=== PATIENT | female | born 1985 | race Caucasian/White ===

== ENCOUNTER 2020-01-12 13:33 | Emergency (ER) | payer OTHER, SELFPAY ==
--- NOTE | 2020-01-12 13:41 | ED.EYEPROB ---
HPI - Eye Problem General Chief complaint: Eye Problems Stated complaint: Eye pain/swollen Time Seen by Provider: 01/12/20 13:45 Source: patient and RN notes reviewed History of Present Illness HPI Narrative: Patient is a 34-year-old female presents the urgent care with complaints of left eye irritation, redness, drainage. Patient states that it started last night and she has had some clear drainage this morning. Patient does not use anything [id number]. Denies any known trauma or injury to the eye. Denies any vision loss. No other acute complaints. No acute distress noted. Patient aware the plan of care. Related Data Home Medications Medication Instructions Recorded Confirmed diazepam [Valium] 10 mg PO BID PRN 01/12/20 01/12/20 fluoxetine 20 mg PO DAILY 01/12/20 01/12/20 trazodone 100 mg PO BID PRN 01/12/20 01/12/20 Allergies Allergy/AdvReac Type Severity Reaction Status Date / Time Sulfa (Sulfonamide Allergy Unknown Hives Verified 10/28/19 21:49 Antibiotics) hydrocodone AdvReac Unknown N/V/DIZZINE Verified 10/28/19 21:49 SS Review of Systems Review of Systems: Narrative: CONSTITUTIONAL: Denies fever, chills, or sweats. EYES: Reports of left eye redness, irritation, clear drainage ENT: Denies rhinorrhea, congestion, sore throat, or otalgia. CARDIOVASCULAR: Denies chest pain, palpitations, or edema. RESPIRATORY: Denies cough or dyspnea. GASTROINTESTINAL: Denies abdominal pain, nausea, vomiting, or diarrhea. GENITOURINARY: Denies dysuria or hematuria. SKIN: Denies rash or itching. MUSCULOSKELETAL: Denies back pain, joint pain, or myalgia. NEUROLOGIC: Denies headache, numbness, or weakness. All other systems reviewed are negative, except as documented in HPI. [facility] Past Medical History Medical History (Updated 01/12/20 @ 14:00 by LIZZETH Cummins) Anemia Anxiety Asthma Congenital heart disease Herpes Hypercholesteremia PCOS (polycystic ovarian syndrome) Surgical History Surgical History (Updated 10/28/19 @ 22:28 by Han Gibson) Hx of tubal ligation Social History Social History (Updated 10/28/19 @ 22:28 by Han Gibson) Smoking status: Never smoker Second hand tobacco smoke exposure: Yes Gender identity (if verbalized by the patient): Female Comments At the time of my signature, I reviewed and agree with the nursing past medical, surgical, social, and family history. There is no relevant family history pertinent to the patient complaint. Exam Narrative: Exam Narrative: GENERAL: This is a well-nourished, well-developed patient, in no apparent distress. HEAD: normocephalic, atraumatic. EYES: PERRL. Sclera clear/white. Mild injection to left conjunctivea with clear drainage. No obvious hordeolum. Vision is grossly intact. EARS: External ears normal NOSE: External nose normal with no obvious nasal discharge, nares without redness, no rhinorrhea. NECK: Neck supple CARDIOVASCULAR: Regular rate and rhythm without murmurs, gallops, or rubs. RESPIRATORY: Clear to auscultation. Breath sounds equal bilaterally. No wheezes, rales, or rhonchi. SKIN: warm, intact with no suspicious lesions or rash, good texture and turgor. NEURO: awake, alert, and oriented to person, place and time. There were no obvious focal neurologic abnormalities. EXTREMITIES: No clubbing, cyanosis, or edema. Course Vital Signs Vital signs: Vital Signs Temperature 97.4 F L 01/12/20 13:45 Pulse Rate 101 H 01/12/20 13:45 Respiratory Rate 16 01/12/20 13:45 Blood Pressure 122/69 01/12/20 13:45 Pulse Oximetry 100 01/12/20 13:45 Temperature 97.4 F L 01/12/20 13:45 Pulse Rate 101 H 01/12/20 13:45 Respiratory Rate 16 01/12/20 13:45 Blood Pressure 122/69 01/12/20 13:45 Pulse Oximetry 100 01/12/20 13:45 Reviewed MDM - Eye Problem MDM Narrative Medical decision making narrative: Advised the patient to use warm compress to the left eye and take Claritin for itching and water
[2020-01-12 13:45] VITALS: BP 122/69; PULSE 101; RESP 16; TEMP 36.3; O2SAT 100
== END 2020-01-12 14:06 | disposition home or self-care (01) ==
PROVIDERS: Emergency Provider Nurse Practitioner Family
DX: H57.89 Other specified disorders of eye and adnexa (principal); E78.00 Pure hypercholesterolemia, unspecified; E28.2 Polycystic ovarian syndrome; J45.909 Unspecified asthma, uncomplicated; Q24.9 Congenital malformation of heart, unspecified; F41.9 Anxiety disorder, unspecified
CPT/HCPCS: 99213; G0463

== ENCOUNTER 2020-06-13 19:17 | Emergency (ER) | payer OTHER, SELFPAY ==
--- NOTE | 2020-06-13 19:28 | ED.FEMALEGU ---
HPI - Female Genitourinary General Chief complaint: Urogenital-Female Stated complaint: Possible UTI Time Seen by Provider: 06/13/20 19:28 Source: patient Mode of arrival: ambulatory Limitations: no limitations History of Present Illness HPI Narrative: Andreea Crooks is a 34 yo female with a PMH of sleep difficulties, recurrent UTI, who comes to the [facility] care with complaints of frequency and dysuria started yesterday no vaginal discharge or itching, no fever, no nausea vomiting, no back pain. Complaining of mild suprapubic pain Related Data Home Medications Medication Instructions Recorded Confirmed diazepam [Valium] 10 mg PO DAILY 06/13/20 06/13/20 trazodone 100 mg PO HS 06/13/20 06/13/20 Allergies Allergy/AdvReac Type Severity Reaction Status Date / Time Sulfa (Sulfonamide Allergy Unknown Hives Verified 06/13/20 19:31 Antibiotics) hydrocodone AdvReac Unknown N/V/DIZZINE Verified 06/13/20 19:31 SS Review of Systems Review of Systems: Narrative: CONSTITUTIONAL: Denies fever, chills, sweats. EYES: Denies visual changes, redness, discharge. ENT: Denies rhinorrhea, congestion, sore throat, otalgia. CARDIOVASCULAR: Denies chest pain, palpitations, edema. RESPIRATORY: Denies dyspnea, wheezing, cough GASTROINTESTINAL: Denies abdominal pain, nausea, vomiting, diarrhea. GENITOURINARY: Has dysuria, no hematuria, no abnormal discharge SKIN: Denies rash or itching. NEUROLOGIC: Denies numbness, or focal weakness. PSYCHIATRIC: Denies anxiety or depression. [facility] Past Medical History Medical History Anemia Anxiety Asthma Congenital heart disease Herpes Hypercholesteremia PCOS (polycystic ovarian syndrome) Surgical History Surgical History Hx of tubal ligation Family History Family History Other Heart disease Social History Social History Smoking status: Never smoker Second hand tobacco smoke exposure: Yes Gender identity (if verbalized by the patient): Female Comments At time of signature, I agree with nursing past medical, surgical, social and family history. There is no relevant family history pertinent to the presenting complaint. Blood pressure is elevated due to this visit and history of heart disease; follow-up with PCP Exam Narrative: Exam Narrative: GENERAL: This is a well-nourished, well-developed patient, in mild distress. HEAD: normocephalic, atraumatic. EYES: Sclera clear/white. Vision is grossly intact. EARS: External ears normal, auditory canals clear and without drainage, TMs normal without perforation ENT: without nasal discharge, nares without redness, no rhinorrhea. THROAT: Mucous membranes moist, NECK: Neck supple, CARDIOVASCULAR: Tachycardic regular rate and rhythm without murmurs, gallops, or rubs. RESPIRATORY: Clear to auscultation. Breath sounds equal bilaterally. No wheezes, rales, or rhonchi. GASTROINTESTINAL: Abdomen soft, suprapubic tenderness SKIN: warm, intact with no suspicious lesions or rash, good texture and turgor. NEURO: awake, alert, and oriented to person, place and time. There were no obvious focal neurologic abnormalities. Steady gait EXTREMITIES: Normal range of motion. BACK: Nontender without deformity Course Course Emergency Course: UA dipstick negative but due to complaints of dysuria will treat. Urine sent for culture 5 days of cephalexin 500 mg twice daily Patient to follow-up with primary care physician Vital Signs Vital signs: Vital Signs Temperature 98.4 F 06/13/20 19:30 Pulse Rate 105 H 06/13/20 19:30 Respiratory Rate 16 06/13/20 19:30 Blood Pressure 133/91 H 06/13/20 19:30 Pulse Oximetry 100 06/13/20 19:30 Temperature 98.4 F 06/13/20 19:30 Pulse Rate 105 H 06/13/20 19:30 Resp
[2020-06-13 19:30] VITALS: BP 133/91; PULSE 105; RESP 16; TEMP 36.9; O2SAT 100
== END 2020-06-13 19:42 | disposition home or self-care (01) ==
PROVIDERS: Emergency Provider Nurse Practitioner
DX: R30.0 Dysuria (principal); R35.0 Frequency of micturition; F41.9 Anxiety disorder, unspecified; E28.2 Polycystic ovarian syndrome; Z87.440 Personal history of urinary (tract) infections
CPT/HCPCS: 81003; 87086; 99213; G0463

== ENCOUNTER 2021-02-15 17:12 | Outpatient (CLI) | payer OTHER, SELFPAY ==
--- NOTE | ~2021-02-15 | MM_ITS ---
EXAMINATION: MM screening truman BI w george HISTORY: Screening mammogram TECHNIQUE: Craniocaudal and mediolateral oblique 3-D tomosynthesis images were obtained and synthetic 2-D images were generated. CAD analysis was submitted and interpreted. COMPARISON: 07/2016 Limited right breast ultrasound BREAST PARENCHYMAL COMPOSITION: There are scattered areas of fibroglandular density. FINDINGS: There is no evidence of suspicious mass, calcification, or architectural distortion to sugg est malignancy in either breast. There has been no suspicious interval change. IMPRESSION: 1. No mammographic evidence of malignancy. 2. Recommend routine screening mammography in one year. BI-RADS Category 1: Negative Reviewed, dictated and finalized at location A.
== END 2021-02-15 17:13 | disposition home or self-care (01) ==
PROVIDERS: Visit Provider Obstetrics & Gynecology
DX: Z12.31 Encounter for screening mammogram for malignant neoplasm of breast (principal)
CPT/HCPCS: 77063; 77067

== ENCOUNTER 2021-08-08 14:31 | Emergency (ER) | payer OTHER, SELFPAY ==
--- NOTE | 2021-08-08 14:37 | ED.URI ---
HPI - URI/Sore Throat General Chief Complaint: Upper Respiratory Infection Stated Complaint: HEADACHE/BODY ACHES/SORE THROAT/COUGH History of Present Illness HPI Narrative: This is a 35-year-old female comes in complaining of body aches, headache, some nausea and not feeling well patient's mother tested positive for Covid. 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 Patient took a rapid test that was negative at home Related Data Home Medications Medication Instructions Recorded Confirmed diazepam [Valium] 10 mg PO DAILY 06/13/20 06/13/20 trazodone 100 mg PO HS 06/13/20 06/13/20 Allergies Allergy/AdvReac Type Severity Reaction Status Date / Time Sulfa (Sulfonamide Allergy Unknown Hives Verified 06/13/20 19:31 Antibiotics) hydrocodone AdvReac Unknown N/V/DIZZINE Verified 06/13/20 19:31 SS Review of Systems Review of Systems: Body aches Sore throat, nasal drainage clear, headache All systems reviewed & are unremarkable except as noted in HPI and below PMFSH Past Medical History Medical History (Updated 08/08/21 @ 14:43 by Rey Huerta NP) Anemia Anxiety Asthma Congenital heart disease Herpes Hypercholesteremia PCOS (polycystic ovarian syndrome) Surgical History Surgical History Hx of tubal ligation Family History Family History Other Heart disease Social History Social History Smoking status: Never smoker Second hand tobacco smoke exposure: Yes Gender identity (if verbalized by the patient): Female Comments At time as signature, I have reviewed and agree with nursing past medical, social, surgical and family history. Please see nursing chart for further information. There is no relevant family history pertinent to the presenting complaint. Course Course Emergency Course: We will schedule outpatient PCI Vital Signs Vital signs: Vital Signs Temperature 98.2 F 08/08/21 14:54 Pulse Rate 138 H 08/08/21 14:54 Respiratory Rate 16 08/08/21 14:54 Blood Pressure 147/96 H 08/08/21 14:54 Pulse Oximetry 99 08/08/21 14:54 Temperature 98.2 F 08/08/21 14:54 Pulse Rate 138 H 08/08/21 14:54 Respiratory Rate 16 08/08/21 14:54 Blood Pressure 147/96 H 08/08/21 14:54 Pulse Oximetry 99 08/08/21 14:54 MDM - URI/Sore Throat MDM Narrative Medical decision making narrative: Patient more than likely is positive for Covids Differential Diagnosis Differential diagnosis: Likely upper respiratory infection, croup, otitis media, viral infection, bronchitis, influenza and pharyngitis Discharge Plan Discharge Clinical Impression: Exposure to COVID-19 virus, Sore throat, Body aches Headache Qualifiers: Headache type: unspecified Headache chronicity pattern: acute headache Intractability: not intractable Qualified Code(s): R51.9 - Headache, unspecified Patient Disposition: Home, Self-Care Condition: Stable Instructions: Antibiotic Form, Viral Syndrome (ED), COVID-19: Slow the Coronavirus Spread (ED), Face Coverings (Masks) and COVID-19 (ED), How to Recover from COVID-19 at Home (ED) Additional Instructions: Viral illness may last between 7-12days; antibiotic is NOT recommended at this time. Recommend antihistamine such as Benadryl at night time and Claritin/Zyrtec/Ekaterina during the day Also, recommend symptomatic treatment includes: rest, fluids, and increase humidity of the air at home. Recommend Acetaminophen or nonsteroidal anti-inflammatory agents (NSAIDs) as directed in the bottle to reduce fever and/pain/headache. Avoid smoking/second-hand smoke. Limit visits to areas with large crowds. Please schedule a follow-up visit with your pers
[2021-08-08 14:54] VITALS: BP 147/96; PULSE 138; RESP 16; TEMP 36.8; O2SAT 99
== END 2021-08-08 14:55 | disposition home or self-care (01) ==
PROVIDERS: Emergency Provider Nurse Practitioner Family
DX: J02.9 Acute pharyngitis, unspecified (principal); R52 Pain, unspecified; R51.9 Headache, unspecified; Z20.822 Contact with and (suspected) exposure to COVID-19; J45.909 Unspecified asthma, uncomplicated; E78.00 Pure hypercholesterolemia, unspecified; E28.2 Polycystic ovarian syndrome; Q24.9 Congenital malformation of heart, unspecified; F41.9 Anxiety disorder, unspecified; D64.9 Anemia, unspecified
CPT/HCPCS: 99211; G0463

== ENCOUNTER → 2021-08-09 02:35 | Outpatient (CLI) | payer OTHER, SELFPAY ==
[2021-08-09 16:56] LABS: SARS-CoV-2 RNA PCR Positive
== END ==
PROVIDERS: Visit Provider Nurse Practitioner Family
DX: U07.1 COVID-19 (principal)
CPT/HCPCS: C9803; U0003; U0005

== ENCOUNTER 2022-04-11 15:19 | Emergency (ER) | payer OTHER, SELFPAY ==
--- NOTE | ~2022-04-11 | XR_ITS ---
EXAMINATION: XR chest 2V DATE: 04/11/2022 16:02 INDICATION: Shortness of breath and chest tightness TECHNIQUE: PA and lateral views of the chest are obtained. COMPARISON: 05/20/2018 FINDINGS: The lungs are free of acute opacities. There is no pleural effusion or pneumothorax. The ca rdiomediastinal silhouette is normal. There is mild thoracic spondylosis. IMPRESSION: 1. No acute cardiopulmonary abnormality. Reviewed, dictated and finalized at location F.
[2022-04-11 15:37] VITALS: BP 135/83; PULSE 84; RESP 20; TEMP 36.2; O2SAT 100
--- NOTE | 2022-04-11 15:50 | ED.SOB ---
HPI - SOB/Dyspnea General Chief Complaint: Shortness of Breath/Dyspnea Stated Complaint: pressure in lungs and shortness of breath Time Seen by Provider: 04/11/22 15:50 Source: patient and RN notes reviewed Mode of arrival: ambulatory Limitations: no limitations History of Present Illness HPI Narrative: 36-year-old female presented for complaint of feeling pressure on lungs and a fullness sensation in her chest. She denies chest pain, palpitations, nausea, vomiting, diarrhea, constipation, cough, or wheezing. States the pressure was a sudden onset last night. Has not changed in intensity. States laying on her back makes it worse, but this is not a new finding for her. No positions make it better. Related Data Home Medications Medication Instructions Recorded Confirmed liraglutide 0.6 mg/0.1 mL (18 mg/3 1.2 mg subcut DAILY 04/11/22 04/11/22 mL) subcutaneous pen injector (RJMetricstoza 2-Yo) magnesium oxide 400 mg (241.3 mg 400 tablet PO DAILY 04/11/22 04/11/22 magnesium) tablet Allergies Allergy/AdvReac Type Severity Reaction Status Date / Time Sulfa (Sulfonamide Allergy Unknown Hives Verified 04/11/22 15:34 Antibiotics) hydrocodone AdvReac Unknown N/V/DIZZINE Verified 04/11/22 15:34 SS Review of Systems Review of Systems: CONSTITUTIONAL: Denies body aches, fever, chills CARDIOVASCULAR: Denies chest pain, palpitations, or edema. RESPIRATORY: Denies cough GASTROINTESTINAL: Denies hematochezia, melena, hematemesis MUSCULOSKELETAL: Denies back pain, joint pain, or myalgia. NEUROLOGIC: Denies headache, numbness, tingling, or weakness. All systems reviewed & are unremarkable except as noted in HPI and below PMFSH Past Medical History Medical History (Updated 04/11/22 @ 16:25 by Kayleigh Clemente APRN) Anemia Anxiety Asthma Congenital heart disease Herpes Hypercholesteremia PCOS (polycystic ovarian syndrome) Surgical History Surgical History Hx of tubal ligation Family History Family History Other Heart disease Social History Social History Smoking status: Never smoker Second hand tobacco smoke exposure: Yes Gender identity (if verbalized by the patient): Female Comments At time of signature, I have reviewed and agree with nursing past medical, surgical, social and family history unless otherwise noted. Please see nursing chart for further information. There is no relevant family history pertinent to the presenting complaint Exam Narrative: GENERAL: Well-appearing, no acute distress. HEAD: Normocephalic, atraumatic. CHEST: No respiratory distress. Clear to auscultation. HEART: Regular rate and rhythm. No murmur appreciated. Normal peripheral pulses. ABDOMEN: Nontender abdomen, No guarding, rebound tenderness,or asymmetry; abd soft, nondistended, normal active bowel sounds. MUSCULOSKELETAL: No bony tenderness. SKIN: Warm, dry, no rash. Capillary refill normal. Normal skin turgor. PSYCH: Normal affect. Course Course Emergency Course: Patient is aware of diagnosis, understands and agrees to treatment plan. Anticipatory guidance given. Patient agrees to follow-up as directed and is aware of reasons to seek care at the emergency department. Portions of this record may have been created with voice recognition software Level of Care: Express Care Visit Vital Signs Vital signs: Vital Signs Temperature 97.1 F L 04/11/22 15:37 Pulse Rate 84 04/11/22 15:37 Respiratory Rate 20 04/11/22 15:37 Blood Pressure 135/83 04/11/22 15:37 Pulse Oximetry 100 04/11/22 15:37 Oxygen Delivery Room Air 04/11/22 15:37 Temperature 97.1 F L 04/11/22 15:37 Pulse Rate 84 04/11/22 15:37 Respiratory Rate 20 04/11/22 15:37 Blood Pressure 135/83 04/11/22 15:37 Pulse Oximetry 100 04/11/22 1
== END 2022-04-11 16:43 | disposition home or self-care (01) ==
PROVIDERS: Emergency Provider Nurse Practitioner Family
DX: R06.02 Shortness of breath (principal); J45.909 Unspecified asthma, uncomplicated; E78.00 Pure hypercholesterolemia, unspecified; E28.2 Polycystic ovarian syndrome; Q24.9 Congenital malformation of heart, unspecified
CPT/HCPCS: 71046; 99213; G0463

== ENCOUNTER 2022-10-17 16:17 | Outpatient (CLI) | payer OTHER, SELFPAY ==
--- NOTE | ~2022-10-17 | MM_ITS ---
EXAMINATION: MM screening truman BI w george HISTORY: Screening mammogram TECHNIQUE: Craniocaudal and mediolateral oblique 3-D tomosynthesis images were obtained and synthetic 2-D images were generated. CAD analysis was submitted and interpreted. COMPARISON: 02/15/2021 BREAST PARENCHYMAL COMPOSITION: There are scattered areas of fibroglandular density. FINDINGS: No suspicious mass, calcification, or architectural distortion are identified in either jack ast to suggest malignancy. There has been no suspicious interval change. IMPRESSION: 1. No mammographic evidence of malignancy. 2. Recommend routine screening mammography beginning at age 40. BI-RADS Category 1: Negative Reviewed, dictated and finalized at location A. EME COURT JUDGE
== END 2022-10-17 16:18 | disposition home or self-care (01) ==
LOC: ANHIMG 16:18
PROVIDERS: Visit Provider Obstetrics & Gynecology
DX: Z12.31 Encounter for screening mammogram for malignant neoplasm of breast (principal)
CPT/HCPCS: 77063; 77067

== ENCOUNTER 2023-02-07 19:49 | Observation (INO) | payer OTHER, SELFPAY ==
--- NOTE | ~2023-02-07 | XR_ITS ---
EXAMINATION: XR chest 2V DATE: 02/07/2023 21:42 INDICATION: Shortness of breath TECHNIQUE: PA and lateral views of the chest are obtained. COMPARISON: 04/11/2022 FINDINGS: The lungs are free of acute opacities. No pleural effusion or pneumothorax. The cardiomedia stinal silhouette is normal. There is mild thoracic spondylosis. IMPRESSION: 1. No acute cardiopulmonary abnormality. Reviewed, dictated and finalized at location F.
[2023-02-07 19:52] VITALS: BP 148/88; PULSE 118; RESP 16; TEMP 36.6; O2SAT 100
[2023-02-07 20:18] LABS: Basophils Absolute Auto 0.1 K/mm3 (0.0-0.1); Basophils Percent Auto 0.7 % (0.2-1.2); Eosinophils Absolute Auto 0.1 K/mm3 (0-0.3); Hematocrit 28.3 % (37.0-47.0); Hemoglobin 7.5 g/dL (12.0-15.0); Immature Granulocyte Absolute 0.03 K/mm3 (0.00-0.031); Immature Granulocyte Percent A 0.4 % (0-0.5); Lymphocytes Absolute Auto 2.64 K/mm3 (0.9-3.2); Lymphocytes Percent Auto 36.8 % (18.3-44.2); Mean Corpuscular HGB Conc 26.5 g/dl (32-36); Mean Corpuscular Hemoglobin 18.6 pg (26-34); Mean Corpuscular Volume 70.2 fl (80-100); Mean Platelet Volume 9.6 fl (7.4-10.4); Monocytes Absolute Auto 0.5 K/mm3 (0.1-0.6); Monocytes Percent Auto 7.4 % (2.6-8.5); Neutrophils Absolute Auto 3.9 K/mm3 (1.3-6.7); Neutrophils Percent Auto 53.7 % (45.5-73.1); Platelet Count Result 415 k/mm3 (150-375); Red Blood Count 4.03 M/mm3 (4.2-5.4); Red Cell Distribution Width 18.1 % (11.5-14.5); White Blood Count 7.2 K/mm3 (4.5-10.0)
[2023-02-07 20:28] LABS: Alanine Aminotransferase 22 U/L (6-35); Albumin Level 4.7 g/dL (3.5-5.1); Alkaline Phosphatase 76 U/L (38-126); Anion Gap 13 mmol/L (8-16); Aspartate Amino Transferase 25 U/L (14-36); Bilirubin,Total 0.4 mg/dL (0.2-1.3); Blood Urea Nitrogen 18 mg/dL (7-17); Calcium 8.6 mg/dL (8.4-10.2); Carbon Dioxide 24 mmol/L (22-30); Chloride 102 mmol/L (98-107); Estimated CRCL calculation 106 ml/min; Estimated Glomerular Filt Rate > 60; Glucose 126 mg/dL (65-110); Potassium 3.4 mmol/L (3.4-5.0); Sodium 139 mmol/L (137-145)
[2023-02-07 20:31] LABS: INR 1.1; Partial Thromboplastin Time 29.8 SECONDS (22.3-36.8); Prothrombin Time 13.9 Seconds (11.1-14.7)
[2023-02-07 20:32] VITALS: BP 148/99; PULSE 113; RESP 14; O2SAT 100
--- NOTE | 2023-02-07 20:32 | PC.NURSE ---
Pt states she was at her new PCP yesterday and had routine labs drawn. She has a history of anemia and has required a blood transfusion in the past, but not since she was 15. Pt reports heavy periods, going through a box of pads and tampons every cycle and usually goes through a super tampon and pad every three hours. She denies any pain. +SOB and feeling very tired. Denies any dizziness.
--- NOTE | 2023-02-07 20:33 | ECG_ITS ---
Measurements Intervals Reading Rate: 91 P: 61 CA: 140 QRS: 33 QRSD: 94 T: 7 QT: 340 QTc: 420 Interpretive Statements SINUS RHYTHM MINIMAL Q WAVES- INF/LAT LEADS BORDERLINE ST-T WAVE ABNORMALITY- ANT/INF LEADS BASELINE ARTIFACT- I, II, AVR, V1-V3, V5-V6 BORDERLINE ECG NO PREVIOUS ECG AVAILABLE FOR COMPARISON Electronically Signed On 02-07-2023 22:02:53 CDT by Salvatore Yu D.O.
--- NOTE | 2023-02-07 20:34 | ED.GENADULT ---
HPI - General Adult General Chief complaint: Recheck/Abnormal Lab/Rx Stated complaint: low hgb Time Seen by Provider: 02/07/23 19:55 Source: RN notes reviewed History of Present Illness HPI narrative: Patient presents emergency department from home for anemia. Patient states that she has a history of iron deficiency anemia and had been seen by previous PCP and had to have blood transfusion as well as iron transfusion before in the past. She states that her numbers had improved however that doctor left practice and she did not see anyone for a while but did continue to take iron supplementation she been set up with a new doctor Dr. moraes went to see her for the first time yesterday that time blood work was drawn and she was called today and told to come to the emergency department as her hemoglobin was 7.4. She states that with that she has been experiencing some shortness of breath worse with exhaustion she denies any fevers or chills chest pain abdominal pain nausea vomiting or other symptoms denies any blood in her stool Related Data Home Medications Medication Instructions Recorded Confirmed liraglutide 0.6 mg/0.1 mL (18 mg/3 1.8 mg subcut DAILY 04/11/22 02/07/23 mL) subcutaneous pen injector (Victoza 2-Yo) magnesium oxide 400 mg (241.3 mg 400 tablet PO DAILY 04/11/22 02/07/23 magnesium) tablet albuterol sulfate 90 mcg/actuation 2 puff inhalation Q4HWA PRN 02/07/23 02/07/23 aerosol inhaler Shortness Of Breath clonazepam 0.5 mg tablet 0.5 mg PO QHS 02/07/23 02/07/23 Allergies Allergy/AdvReac Type Severity Reaction Status Date / Time Sulfa (Sulfonamide Allergy Unknown Hives Verified 02/07/23 23:24 Antibiotics) hydrocodone AdvReac Unknown N/V/DIZZINE Verified 02/07/23 23:24 SS Review of Systems Review of Systems: Gen.: Denies fevers or chills reports history of anemia ENT: Denies congestion Respiratory: Reports shortness of breath with exertion, denies cough CV: Denies chest pain or palpitations GI: Denies abdominal pain nausea, emesis or diarrhea Musculoskeletal: Denies back pain or muscle pain Neuro: Denies numbness, tingling, weakness or focal weakness Skin: Denies rash Except as documented, all other systems reviewed and negative PMFSH Past Medical History Medical History (Updated 02/08/23 @ 02:04 by Mali Villatoro DO) Anxiety Asthma Breast pain Herpes HPV in female Hypercholesteremia Iron deficiency anemia Obesity (BMI 35.0-39.9 without comorbidity) PCOS (polycystic ovarian syndrome) Surgical History Surgical History (Updated 02/07/23 @ 23:04 by Mali Villatoro DO) Hx of tubal ligation (~2008) Normal colonoscopy (~2015) Family History Family History (Updated 02/08/23 @ 02:06 by Mali Villatoro DO) Father , At age 49 due to multiple complications of type 1 diabetes Hypertension Cerebrovascular accident Acute myocardial infarction Type 1 diabetes Multi-infarct dementia Chronic kidney disease Grandparent Heart disease maternal grandfather paternal grandfather Hodgkin lymphoma maternal grandmother Breast cancer maternal grandmother Mother Hypothyroidism Hypertension Social History Social History (Updated 02/08/23 @ 02:11 by Mali Villatoro DO) Social History: The patient lives at home with her and 3 children. She used to smoke half a pack of cigarettes per day for between 8-10 years but quit smoking when her youngest child was warm. She rarely use his THC in order to try to help her sleep due to her restless leg symptoms associated with her anemia. She rarely drinks alcohol and only in small amounts. Code status: Full code Surrogate decision maker: Smoking packs per day: 0.5 Smoking cigarettes per day: 10.0 Years smoked: 10 Smoking pack-years: 5.00 Smoking status: Former smoker Second hand tobacco smoke exposure: Yes Alcohol intake: current Alcohol use details: vini
[2023-02-07 20:46] LABS: Anisocytosis 1+ (NORMAL); Hypochromasia 1+ (NORMAL); Microcytosis 1+ (NORMAL); Ovalocytes 1+ (NORMAL); Platelet Estimate Increased (Adequate); Schistocytes None Seen (NORMAL)
[2023-02-07 21:08] LABS: Iron 22 ug/dL (37-170)
[2023-02-07 21:18] LABS: Percent Iron Saturation 4 % (20-50)
[2023-02-07 21:21] VITALS: BP 141/72; PULSE 104; RESP 18; O2SAT 100
[2023-02-07 21:32] VITALS: BP 158/84; PULSE 102; RESP 18; O2SAT 100
[2023-02-07 22:31] VITALS: BP 156/92; PULSE 100; RESP 20; O2SAT 100
[2023-02-07 22:57] VITALS: BP 142/71; PULSE 104; RESP 18; TEMP 36.5; O2SAT 100; BMI 35.3
--- NOTE | 2023-02-07 23:02 | PM.IMHP ---
H&P: HPI History of Present Illness Date/Time: 02/07/23 23:02 Chief Complaint: Anemia Narrative: 37-year-old female with a past medical history of obesity and iron deficiency anemia who presented to the ER with low hemoglobin of 7.4 on outpatient labs and was directed to come to the ER by her primary care provider. The patient reports that she had a history of chronic intermittent anemia. She would occasionally become anemic when she was in her teens and would briefly be placed on iron supplements. She would then become anemic again. She stated that anemia got worse when she started having children. She has children age 1917 and 13. She states that since she had her 13-year-old she has been having med menorrhagia. She is bleed through a super tampon and 2 pads every 2 hours. She bleeds heavily like this for 3 days in her cycle lasts a total of 6 days. She has been taking ferrous sulfate once a day for her iron deficiency. She does not know what dose of supplement she takes. In the past she has required blood transfusions he had iron infusions. 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 She did not want switched to a new primary care physician that would leave again so she does now got reestablished with primary care with Dr. Mary Rollins. She was evaluated by Dr. Mary Rollins this week due to her anemia. She reports that she has been chronically fatigued for a couple of years with her anemia. Her fatigue he has not changed with any significance over the last year. She has developed restless leg symptoms over the last 6-9 months. She does also snore. She has been evaluated by her bias machine operator helper who is recommending that she have a partial hysterectomy. She has not moved for with with this yet. She has had prior EGD and colonoscopy that was negative and approximately 2016. She denies any hematochezia, hematemesis, or melena. She reports that she has baseline sinus tachycardia. She states that she has history of frequent what sounds like PVCs. She has had a mobile developer and an echocardiogram in the past by glass block installer which was all found to be normal except for her mobile developer demonstrated chronic sinus tachycardia. She reports that her heart rate is usually in the low 100s at baseline she will occasionally get down to a resting heart rate of 80 but her heart rate always goes up with exertion. She states that this was true even when she was not more severely anemic. She denies any lightheadedness with standing. She denies any chest pain. She does have some dyspnea with exertion but again this is not changed in the last year. She does report that she eats plenty of red meat and actually ate chicken livers before she came to the hospital. She reports heating leafy green vegetables. The patient let me review her outpatient labs from her phone and she was noted to have iron deficiency anemia with labs at correlated with the labs performed here. Her hemoglobin at the outpatient office with 7.4. The patient reports that her hemoglobin and 2020 was around 9 point 0 and her hemoglobin in 2018 was 9.9. She denies any significant family history of anemia. She recently had her thyroid hormone checked and was normal. She reports that she has had significant weight gain. She is the heaviest weight she has ever been. She has been trying to work on diet and lifestyle modification. The patient does have congenital heart disease listed under past medical history. She states that she does not know where this came from in her chart. She has never been told that she actually has a heart problem. She reports that her outpatient echocardiogram that was performed due to what sounds like PVCs and chronic sinus tachycardia demonstrated no structural abnormalities. Review of Systems Review of Systems: 12 systems were reviewed with pertinent positives and negatives per HPI. Excep
--- NOTE | 2023-02-07 23:02 | ADMGEN ---
This patient, Andreea Mace, was admitted to 2 Medical Room 242-01. Patient/family oriented to hospital policies and general routines including ID bracelet, bed and alarms, visiting hours, pain management, procedures, bathroom and other care routines, personal items, smoking policy, room service/diet, and visiting hours. Information on how to activate the Rapid Response Team has been discussed. Patient/Family are encouraged to report perceived risks to care and to ask questions if they do not understand what they are told or what they should do.
[2023-02-08] MEDS: IRON SUCROSE COMPLEX 500 MG in SODIUM CHLORIDE 0.9% IV 250 ML 78.57 MG IVPB (01:44)
[2023-02-08 06:00] VITALS: BP 123/62; PULSE 91; RESP 20; TEMP 36.6; O2SAT 99
[2023-02-08 06:14] LABS: Mean Corpuscular HGB Conc 26.5 g/dl (32-36); Mean Corpuscular Hemoglobin 18.8 pg (26-34); Mean Corpuscular Volume 70.8 fl (80-100); Mean Platelet Volume 9.9 fl (7.4-10.4); Platelet Count Result 352 k/mm3 (150-375); Red Blood Count 3.67 M/mm3 (4.2-5.4); Red Cell Distribution Width 17.9 % (11.5-14.5); White Blood Count 5.6 K/mm3 (4.5-10.0)
[2023-02-08 06:20] LABS: Anion Gap 7 mmol/L (8-16); Blood Urea Nitrogen 18 mg/dL (7-17); Carbon Dioxide 25 mmol/L (22-30); Chloride 105 mmol/L (98-107); Estimated CRCL calculation 145 ml/min; Estimated Glomerular Filt Rate > 60; Glucose 94 mg/dL (65-110); Hemoglobin 6.9 g/dL (12.0-15.0); Potassium 3.7 mmol/L (3.4-5.0); Sodium 137 mmol/L (137-145)
[2023-02-08] MEDS: MAGNESIUM OXIDE 400 MG TABLET PO (08:45)
[2023-02-08] MEDS: FERROUS SULFATE 324 MG TABLET PO (08:45)
[2023-02-08 11:43] LABS: Hematocrit 28.1 % (37.0-47.0); Hemoglobin 7.5 g/dL (12.0-15.0)
--- NOTE | 2023-02-08 12:49 | PM.DS ---
DS: Admitting Diagnosis Discharge Date 02/08/2023 Admitting Diagnosis Anemia DS: Discharge Diagnosis Discharge Diagnosis (1) Symptomatic anemia: Code(s): D64.9 - Anemia, unspecified Status: Acute (2) Iron deficiency: Code(s): E61.1 - Iron deficiency Status: Acute (3) Menometrorrhagia: Code(s): N92.1 - Excessive and frequent menstruation with irregular cycle Status: Acute (4) Fatigue: Code(s): R53.83 - Other fatigue Status: Acute DS: Summary Hospital Course Hospital Course: Date of admission: 02/07/23 Date of discharge: 02/08/23 Andreea Mace is a 37 year old female with a history of PCOS, ROMINA, asthma, anxiety who presented to the emergency department on 02/07/2023 under the direction of her primary care provider due to low hemoglobin. Patient had been completed of shortness of breath and fatigue for several weeks and went to see a new PCP, had labs drawn which revealed hemoglobin of 7.4. Patient was directed to the ED due to symptomatic anemia. On presentation to the ED, she was tachycardic with additional vital signs stable, hemoglobin was 7.5, hematocrit 28.3, iron 22, TIBC 511, 4% saturation, CXR with no acute findings. She was admitted to the hospitalist service for further evaluation and management. Symptomatic anemia felt to be due to severe iron deficiency due to chronic menorrhagia. She has had issues with anemia for many years but lately has had issues with shortness of breath and fatigue. She received IV iron transfusion during admission. Requested to hold off on transfusion if possible. Hemoglobin did decline to 6.9, however on prompt repeat increased to 7.4. Discussed risks versus benefits of blood transfusion patient opted to hold off. She will repeat H&H in 2 days as an outpatient to ensure remaining stable. She will continue with b.i.d. iron supplementation. She was referred to Hematology to schedule outpatient iron infusions. Also discussed the need to follow-up with her OBGYN to consider definitive management of menorrhagia. Patient minutes that she has been recommended for partial hysterectomy in the past but has held off on doing this and is now willing to reconsider. Patient shortness of breath was resolved. She was feeling improved and requested discharge home. Discussed with the patient worrisome signs and symptoms for which to return and she was educated on her medications. She was discharged in hemodynamically stable condition on 02/08/2023. Time Spent with Patient Time attestation: Total time spent providing and/or coordinating discharge services: 45 minutes Time spent: Greater than 30 minutes Exam Narrative: General: Well-nourished, well-appearing 37-year-old female, sitting up in bed, comfortable, NARD Neuro: awake, alert and oriented x4, speech clear, no focal neuro deficits noted HEENMT: normocephalic, atraumatic, EOMI, sclerae anicteric, moist oral mucosa Respiratory: clear to auscultation bilaterally, nonlabored breathing Cardio: regular rate, regular rhythm with S1-S2 Abdomen: nondistended, normoactive bowel sounds, soft, nontender to palpation Extremities: no edema, erythema, or tenderness to palpation Skin: no rashes or lesions, warm and dry Psych: appropriate mood and affect, judgment and insight intact DS: Data Data Completed and Pending Labs on day of discharge: Labs from last 24 hours 02/08/23 02/08/23 02/08/23 12:13 11:28 11:28 WBC RBC Hgb 7.5 L Hct 28.1 L MCV MCH MCHC RDW Plt Count MPV Immature Gran % (Auto) Neut % (Auto) Lymph % (Auto) [place] % (Auto) Eos % (Auto) Baso % (Auto) Lymph # (Auto) [place] # (Auto) Eos # (Auto) Baso # (Auto) Abs Immat Gran (auto) Absolute Neuts (auto) Absolute Nucleated RBC Nucleated RBC % Platelet Estimate Hypochromasia Anisocytosis Microcytosis Ovalocytes Schistocytes PT
[2023-02-08 12:50] LABS: IFOB Positive Control Positive; Immunochemical Fecal Occult Bl Negative (N)
[2023-02-08 13:03] LABS: Folic Acid 19.6 ng/mL (2.76->20)
== END 2023-02-08 13:51 | disposition home or self-care (01) ==
LOC: ANHED 21:14 → ANH2MED 22:47
PROVIDERS: Admitting Provider Internal Medicine; Emergency Provider Emergency Medicine; PCP Family Medicine; Visit Provider Physician Assistant
DX: D50.9 Iron deficiency anemia, unspecified (principal); N92.1 Excessive and frequent menstruation with irregular cycle; R06.02 Shortness of breath; F41.9 Anxiety disorder, unspecified; J45.909 Unspecified asthma, uncomplicated; A63.0 Anogenital (venereal) warts; E28.2 Polycystic ovarian syndrome; E78.00 Pure hypercholesterolemia, unspecified; E66.9 Obesity, unspecified; Z68.35 Body mass index [BMI] 35.0-35.9, adult; F10.90 Alcohol use, unspecified, uncomplicated; F12.90 Cannabis use, unspecified, uncomplicated; Z87.891 Personal history of nicotine dependence; Z79.85 Long-term (current) use of injectable non-insulin antidiabetic drugs; Z79.51 Long term (current) use of inhaled steroids; Z79.899 Other long term (current) drug therapy
CPT/HCPCS: 36415; 71046; 80048; 80053; 82274; 82607; 82746; 83540; 83550; 85014; 85018; 85025; 85027; 85610; 85730; 86850; 86900; 86901; 93005; 96365; 96366; 99285; A9270; G0378; G0379; J1756; J7050

== ENCOUNTER 2023-02-10 14:21 | Outpatient (CLI) | payer OTHER, SELFPAY ==
[2023-02-10 16:22] LABS: Hematocrit 28.5 % (37.0-47.0); Hemoglobin 7.7 g/dL (12.0-15.0)
== END 2023-02-10 14:22 | disposition home or self-care (01) ==
LOC: ANHLAB 14:24
PROVIDERS: PCP Family Medicine; Visit Provider Physician Assistant
DX: D64.9 Anemia, unspecified (principal)
CPT/HCPCS: 36415; 85014; 85018

== ENCOUNTER 2023-05-09 19:17 | Emergency (ER) | payer OTHER, SELFPAY ==
--- NOTE | ~2023-05-09 | XR_ITS ---
EXAMINATION: XR chest 1V portable Exam Date/Time: 05/09/2023 20:13 CDT HISTORY: pool Comparison: 02/07/2023. RESULT: Lines, tubes, and devices: None. Lungs and pleura: Clear. Cardiomediastinal silhouette: Stable. Other: No acute osseous or upper abdominal finding. IMPRESSION: No acute cardiopulmonary process. Reviewed, dictated and finalized at location K.
--- NOTE | 2023-05-09 19:20 | ECG_ITS ---
Measurements Intervals Coram Rate: 80 P: 49 UT: 136 QRS: 29 QRSD: 106 T: 5 QT: 393 QTc: 455 Interpretive Statements SINUS RHYTHM MINIMAL Q WAVES- ANTEROLAT/HIGH LAT LEADS BASELINE ARTIFACT- III BORDERLINE ECG COMPARED TO ECG 02/07/2023 21:15:16 NO SIGNIFICANT CHANGES Electronically Signed On 05-10-2023 7:25:47 CDT by Salvatore Yu D.O.
[2023-05-09 19:27] VITALS: BP 129/67; PULSE 87; RESP 12; TEMP 37; O2SAT 99
[2023-05-09 19:30] VITALS: PULSE 82
[2023-05-09 19:41] LABS: Basophils Percent Auto 0.5 % (0.2-1.2); Eosinophils Absolute Auto 0.1 K/mm3 (0-0.3); Eosinophils Percent Auto 1.1 % (0-4.4); Hemoglobin 9.2 g/dL (12.0-15.0); Immature Granulocyte Absolute 0.01 K/mm3 (0.00-0.031); Immature Granulocyte Percent A 0.1 % (0-0.5); Lymphocytes Absolute Auto 1.91 K/mm3 (0.9-3.2); Mean Corpuscular HGB Conc 30.7 g/dl (32-36); Mean Corpuscular Hemoglobin 24.7 pg (26-34); Mean Corpuscular Volume 80.6 fl (80-100); Mean Platelet Volume 10.4 fl (7.4-10.4); Monocytes Absolute Auto 0.6 K/mm3 (0.1-0.6); Monocytes Percent Auto 7.3 % (2.6-8.5); Neutrophils Absolute Auto 5.3 K/mm3 (1.3-6.7); Platelet Count Result 258 k/mm3 (150-375); Red Blood Count 3.72 M/mm3 (4.2-5.4); Red Cell Distribution Width 17.3 % (11.5-14.5)
[2023-05-09 19:51] LABS: Alanine Aminotransferase 17 U/L (6-35); Albumin Level 4.1 g/dL (3.5-5.1); Alkaline Phosphatase 57 U/L (38-126); Anion Gap 8 mmol/L (8-16); Aspartate Amino Transferase 20 U/L (14-36); Bilirubin,Total 0.4 mg/dL (0.2-1.3); Blood Urea Nitrogen 15 mg/dL (7-17); Calcium 8.6 mg/dL (8.4-10.2); Carbon Dioxide 25 mmol/L (22-30); Chloride 103 mmol/L (98-107); Estimated CRCL calculation 117 ml/min; Estimated Glomerular Filt Rate > 60; Glucose 116 mg/dL (65-110); Magnesium 1.8 mg/dL (1.6-2.3); Potassium 3.2 mmol/L (3.4-5.0); Sodium 136 mmol/L (137-145)
[2023-05-09] MEDS: POTASSIUM CHLORIDE 20 MEQ PACKET (FOR LIQUID) 40 MEQ PO (20:08)
[2023-05-09 20:16] VITALS: BP 136/76; PULSE 80; RESP 18; O2SAT 100
[2023-05-09 20:17] VITALS: PULSE 82; RESP 15; O2SAT 100
--- NOTE | 2023-05-09 20:19 | ED.SYNCOPE ---
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 She felt better afterwards. She is here to make sure there is nothing else going on. Related Data Home Medications Medication Instructions Recorded Confirmed liraglutide 0.6 mg/0.1 mL (18 mg/3 1.8 mg subcut DAILY 04/11/22 02/07/23 mL) subcutaneous pen injector (Victoza 2-Yo) magnesium oxide 400 mg (241.3 mg 400 tablet PO DAILY 04/11/22 02/07/23 magnesium) tablet albuterol sulfate 90 mcg/actuation 2 puff inhalation Q4HWA PRN 02/07/23 02/07/23 aerosol inhaler Shortness Of Breath clonazepam 0.5 mg tablet 0.5 mg PO QHS 02/07/23 02/07/23 Allergies Allergy/AdvReac Type Severity Reaction Status Date / Time Sulfa (Sulfonamide Allergy Unknown Hives Verified 05/09/23 19:30 Antibiotics) hydrocodone AdvReac Unknown N/V/DIZZINE Verified 05/09/23 19:30 SS Review of Systems Review of Systems: CONST: No fever. HEENT: No sore throat C/V: Palpitations RESP: Shortness of breath GI: No abdominal pain, nausea or vomiting : No dysuria. M/S: No joint pain. SKIN: No rash. NEURO: Tingling in fingers PSYCH: Anxiety PMFSH Past Medical History Medical History (Updated 05/10/23 @ 00:00 by Reva Lechuga) Anxiety Asthma Breast pain Herpes HPV in female Hypercholesteremia Iron deficiency anemia Obesity (BMI 35.0-39.9 without comorbidity) PCOS (polycystic ovarian syndrome) Surgical History Surgical History (Updated 02/07/23 @ 23:04 by Mali Villatoro DO) Hx of tubal ligation (~2008) Normal colonoscopy (~2015) Family History Family History (Updated 02/08/23 @ 02:06 by Mali Villatoro DO) Father , At age 49 due to multiple complications of type 1 diabetes Hypertension Cerebrovascular accident Acute myocardial infarction Type 1 diabetes Multi-infarct dementia Chronic kidney disease Grandparent Heart disease maternal grandfather paternal grandfather Hodgkin lymphoma maternal grandmother Breast cancer maternal grandmother Mother Hypothyroidism Hypertension Social History Social History (Updated 02/08/23 @ 02:11 by Mali Villatoro DO) Social History: The patient lives at home with her and 3 children. She used to smoke half a pack of cigarettes per day for between 8-10 years but quit smoking when her youngest child was warm. She rarely use his THC in order to try to help her sleep due to her restless leg symptoms associated with her anemia. She rarely drinks alcohol and only in small amounts. Code status: Full code Surrogate decision maker: Smoking packs per day: 0.5 Smoking cigarettes per day: 10.0 Years smoked: 10 Smoking pack-years: 5.00 Smoking status: Former smoker Second hand tobacco smoke exposure: Yes Alcohol intake: current Alcohol use details: holidays? Substance use: current Substance use type: marijuana Other substance usage details: for sleep Last use: 07/11/2022 Lack of Transportation: No Lack of Food: Never True Current Housing: I Have Housing Concerned About Future Housing: No Difficulty Paying Gas/Electric Bills: No Difficulty Paying for Meds: No Currently Unemployed: No Education: High School Diploma/GED Difficulty w/ Childcare or Family Care: No Living arrangements: other Additional living arrangements comments: Occupation/Education: occupation Additional occupation/education comments: [employer]
[2023-05-09 21:03] VITALS: BP 123/67; PULSE 67; RESP 16; O2SAT 98
== END 2023-05-09 21:04 | disposition home or self-care (01) ==
PROVIDERS: Emergency Provider Emergency Medicine; PCP Family Medicine
DX: R55 Syncope and collapse (principal); F41.0 Panic disorder [episodic paroxysmal anxiety]; F41.9 Anxiety disorder, unspecified; J45.909 Unspecified asthma, uncomplicated; Z87.891 Personal history of nicotine dependence
CPT/HCPCS: 36415; 71045; 80053; 81025; 83735; 85025; 93005; 99283; A9270

== ENCOUNTER 2023-08-04 14:32 | Outpatient (CLI) | payer OTHER, SELFPAY ==
[2023-08-04 14:45] LABS: Basophils Percent Auto 0.7 % (0.2-1.2); Eosinophils Absolute Auto 0.1 K/mm3 (0-0.3); Eosinophils Percent Auto 1.2 % (0-4.4); Immature Granulocyte Absolute 0.01 K/mm3 (0.00-0.031); Immature Granulocyte Percent A 0.2 % (0-0.5); Lymphocytes Absolute Auto 1.61 K/mm3 (0.9-3.2); Lymphocytes Percent Auto 27.9 % (18.3-44.2); Mean Corpuscular Hemoglobin 22.9 pg (26-34); Mean Corpuscular Volume 78.9 fl (80-100); Monocytes Absolute Auto 0.5 K/mm3 (0.1-0.6); Monocytes Percent Auto 8.1 % (2.6-8.5); Neutrophils Absolute Auto 3.6 K/mm3 (1.3-6.7); Neutrophils Percent Auto 61.9 % (45.5-73.1); Platelet Count Result 266 k/mm3 (150-375); Red Blood Count 3.93 M/mm3 (4.2-5.4); Red Cell Distribution Width 16.3 % (11.5-14.5); White Blood Count 5.8 K/mm3 (4.5-10.0)
[2023-08-04 14:52] LABS: Hypochromasia 1+ (NORMAL); Platelet Estimate Adequate (Adequate); Schistocytes None Seen (NORMAL)
[2023-08-04 16:30] LABS: Iron 28 ug/dL (37-170)
[2023-08-04 16:31] LABS: Anion Gap 8 mmol/L (8-16); Blood Urea Nitrogen 16 mg/dL (7-17); Carbon Dioxide 26 mmol/L (22-30); Chloride 103 mmol/L (98-107); Potassium 3.9 mmol/L (3.4-5.0); Sodium 137 mmol/L (137-145)
[2023-08-04 16:32] LABS: Alanine Aminotransferase 15 U/L (6-35); Albumin Level 4.5 g/dL (3.5-5.1); Alkaline Phosphatase 59 U/L (38-126); Aspartate Amino Transferase 19 U/L (14-36); Bilirubin,Total 0.4 mg/dL (0.2-1.3); Calcium 8.9 mg/dL (8.4-10.2); Estimated Glomerular Filt Rate > 60; Glucose 92 mg/dL (65-110)
[2023-08-04 16:39] LABS: Percent Iron Saturation 6 % (20-50)
[2023-08-04 17:41] LABS: Folic Acid 9.4 ng/mL (2.76->20)
== END 2023-08-04 14:33 | disposition home or self-care (01) ==
LOC: ANHLAB 14:33
PROVIDERS: PCP Family Medicine; Visit Provider Internal Medicine Hematology & Oncology
DX: D64.9 Anemia, unspecified (principal)
CPT/HCPCS: 36415; 80053; 82607; 82728; 82746; 83540; 83550; 84443; 85025

== ENCOUNTER 2023-08-19 16:25 | Outpatient (CLI) | payer OTHER, SELFPAY ==
[2023-08-22 03:43] LABS: CA-125 7 U/mL (<35)
== END 2023-08-19 16:26 | disposition home or self-care (01) ==
LOC: ANHLAB 16:26
PROVIDERS: PCP Family Medicine; Visit Provider Obstetrics & Gynecology
DX: N94.89 Other specified conditions associated with female genital organs and menstrual cycle (principal)
CPT/HCPCS: 36415; 86304

== ENCOUNTER 2024-01-19 12:29 | Outpatient (CLI) | payer OTHER, SELFPAY ==
[2024-01-19 12:50] LABS: Basophils Percent Auto 1.1 % (0.2-1.2); Eosinophils Absolute Auto 0.1 K/mm3 (0-0.3); Eosinophils Percent Auto 2.4 % (0-4.4); Hematocrit 37.9 % (37.0-47.0); Immature Granulocyte Absolute 0.01 K/mm3 (0.00-0.031); Immature Granulocyte Percent A 0.3 % (0-0.5); Lymphocytes Absolute Auto 1.24 K/mm3 (0.9-3.2); Lymphocytes Percent Auto 32.7 % (18.3-44.2); Mean Corpuscular Hemoglobin 24.8 pg (26-34); Mean Corpuscular Volume 85.4 fl (80-100); Mean Platelet Volume 10.1 fl (7.4-10.4); Monocytes Absolute Auto 0.3 K/mm3 (0.1-0.6); Monocytes Percent Auto 8.2 % (2.6-8.5); Neutrophils Absolute Auto 2.1 K/mm3 (1.3-6.7); Neutrophils Percent Auto 55.3 % (45.5-73.1); Platelet Count Result 242 k/mm3 (150-375); Red Blood Count 4.44 M/mm3 (4.2-5.4); Red Cell Distribution Width 22.6 % (11.5-14.5); White Blood Count 3.8 K/mm3 (4.5-10.0)
[2024-01-19 14:13] LABS: Anisocytosis 1+ (NORMAL); Hypochromasia 1+ (NORMAL); Platelet Estimate Adequate (Adequate); Schistocytes Rare (NORMAL)
== END 2024-01-19 12:30 | disposition home or self-care (01) ==
PROVIDERS: PCP Family Medicine; Visit Provider Obstetrics & Gynecology
DX: N92.1 Excessive and frequent menstruation with irregular cycle (principal); E61.1 Iron deficiency
CPT/HCPCS: 36415; 85025

== ENCOUNTER 2024-02-13 07:31 | Outpatient (CLI) | payer OTHER, SELFPAY ==
--- NOTE | ~2024-02-13 | MM_ITS ---
EXAMINATION: MM screening truman BI w george HISTORY: Screening TECHNIQUE: Craniocaudal and mediolateral oblique 3-D tomosynthesis images were obtained and synthetic 2-D images were generated. CAD analysis was submitted and interpreted. COMPARISON: Comparison to multiple prior studies sequentially, with oldest reviewed study dated 11/2020. BREAST PARENCHYMAL COMPOSITION: Not dense: There are scattered areas of fibroglandular density. FINDINGS: There is no evidence of suspicious mass, calcification, or architectural distortion to sugg est malignancy in either breast. There has been no suspicious interval change. IMPRESSION: 1. No mammographic evidence of malignancy. 2. Recommend routine screening mammography in one year. BI-RADS Category 1: Negative Reviewed, dictated and finalized at location A.
== END 2024-02-13 07:32 | disposition home or self-care (01) ==
LOC: ANHIMG 07:34
PROVIDERS: PCP Family Medicine; Visit Provider Obstetrics & Gynecology
DX: Z12.31 Encounter for screening mammogram for malignant neoplasm of breast (principal)
CPT/HCPCS: 77063; 77067

== ENCOUNTER 2024-02-20 14:25 | Outpatient (CLI) | payer OTHER, SELFPAY ==
[2024-02-20 15:40] LABS: Basophils Percent Auto 0.6 % (0.2-1.2); Eosinophils Absolute Auto 0.1 K/mm3 (0-0.3); Eosinophils Percent Auto 1.3 % (0-4.4); Hematocrit 33.2 % (37.0-47.0); Hemoglobin 10.4 g/dL (12.0-15.0); Immature Granulocyte Absolute 0.01 K/mm3 (0.00-0.031); Immature Granulocyte Percent A 0.2 % (0-0.5); Lymphocytes Absolute Auto 1.69 K/mm3 (0.9-3.2); Lymphocytes Percent Auto 32.4 % (18.3-44.2); Mean Corpuscular HGB Conc 31.3 g/dl (32-36); Mean Corpuscular Hemoglobin 27.1 pg (26-34); Mean Corpuscular Volume 86.5 fl (80-100); Mean Platelet Volume 10.3 fl (7.4-10.4); Monocytes Absolute Auto 0.4 K/mm3 (0.1-0.6); Monocytes Percent Auto 6.9 % (2.6-8.5); Neutrophils Absolute Auto 3.1 K/mm3 (1.3-6.7); Neutrophils Percent Auto 58.6 % (45.5-73.1); Platelet Count Result 245 k/mm3 (150-375); Red Blood Count 3.84 M/mm3 (4.2-5.4); Red Cell Distribution Width 17.8 % (11.5-14.5); White Blood Count 5.2 K/mm3 (4.5-10.0)
[2024-02-20 15:56] LABS: Anion Gap 8 mmol/L (4-12); Blood Urea Nitrogen 19 mg/dL (7-17); Calcium 9.1 mg/dL (8.4-10.2); Carbon Dioxide 25 mmol/L (22-30); Chloride 105 mmol/L (98-107); Estimated Glomerular Filt Rate > 60; Glucose 96 mg/dL (65-110); Sodium 138 mmol/L (137-145)
[2024-02-20 16:01] LABS: Hemoglobin A1C 4.9 % (<5.7)
[2024-02-20 16:33] LABS: Iron 32 ug/dL (37-170)
[2024-02-20 16:42] LABS: Percent Iron Saturation 7 % (20-50)
[2024-02-20 17:09] LABS: Ferritin 6.54 ng/mL (6.24-137)
== END 2024-02-20 14:26 | disposition home or self-care (01) ==
PROVIDERS: PCP Family Medicine; Referring Provider Family Medicine; Visit Provider Internal Medicine Hematology & Oncology
DX: D64.9 Anemia, unspecified (principal); R73.03 Prediabetes
CPT/HCPCS: 36415; 80048; 82728; 83036; 83540; 83550; 85025

== ENCOUNTER 2024-03-08 13:35 | Outpatient (CLI) | payer OTHER, SELFPAY | END 2024-03-08 13:36 | disposition home or self-care (01) | LOC: ANHSURGERY 13:38 | PROVIDERS: PCP Family Medicine; Visit Provider Obstetrics & Gynecology | DX: Z01.818 Encounter for other preprocedural examination (principal); N92.1 Excessive and frequent menstruation with irregular cycle | CPT/HCPCS: 36415; 86850; 86900; 86901 ==

== ENCOUNTER 2024-03-11 01:06 | Day surgery (SDC) | payer OTHER, SELFPAY ==
[2024-03-03 15:06] VITALS: BMI 30.7
--- NOTE | 2024-03-03 15:20 | PC.NURSE ---
Report to the Outpatient Waiting Room, entrance under the green pavilion located off [facility], at time 0600 on date 03/11/24. Planned Procedure Time: 0730. Time changes happen often and if your time is changed the preop area will call you the afternoon before. - You and your visitor will be asked to self-screen and do not enter if you have any COVID symptoms. - A mask is optional within the hospital at this time. Patients may have clear liquids (water, carbonated beverages, clear teas, apple juice) until 3 hours prior to surgery with a maximum of 20 ounces. - No food from midnight until time of surgery Take the following medications with a SIP of water the morning of surgery: CLONAZEPAM, INHALER IF NEEDED DO NOT STOP ANY OF YOUR OTHER PRESCRIPTION MEDICATIONS PRIOR TO SURGERY ?EXCEPT THE FOLLOWING Medications to discontinue per physician: VITAMINS Date to take last dose: 03/08/24 NO MORE VICTOZA UNTIL AFTER SURGERY Please no make-up, nail wolof, hairspray, perfume, deodorant, or body powder the day of surgery. No jewelry (including any body piercings) or valuables the day of surgery, leave them at home. Please take a shower or bath the night before, or the morning of, surgery with an antibacterial soap. Wear comfortable, loose fitting clothing. - Jewelry must be removed prior to entering the operating room. Rings and piercings that are not removed may be cut off. - The hospital will not accept responsibility for valuables. - Please leave all valuables, including medications, at home the day of surgery. If you are going home after surgery, a licensed driver/sales workers must drive you home. - NO public transportation without another adult if you receive anesthesia. - We recommend that an adult stay with you for 24 hours following discharge. - We also recommend that you do not drive, make important decision, drink alcoholic beverages, or take any drugs that were not prescribed by your health care provider for at least 24 hours after your discharge time. Follow any additional instructions given to you from your surgeon. If you or anyone in your household have experienced Covid symptoms in the past week, please notify your surgeon or the nurse liaison at the phone number below for possible testing. Telephone instructions given to PT - ROBERT and asked if any additional questions and then verbalized understanding. Patient advised to call surgeon office or pre surgery nurse liaison [phone] if any additional questions.
--- NOTE | 2024-03-10 08:06 | PM.IMHP ---
H&P: HPI History of Present Illness Date/Time: 03/10/24 08:06 38-year-old female 3 para 3003 presents for treatment of heavy vaginal bleeding. Cycles lasting 5-7 days with 3-4 days very heavy with clotting and cramping, found to be anemic in the past with iron infusions. Ultrasound shows enlarged uterus with thickened endometrial cavity, which was evaluated with biopsy in the office which was benign. Also complains of vaginal pressure and fullness special with lifting and caring and later in the day. Denies any urinary or bowel complaints. Chief Complaint: Menometrorrhagia Review of Systems Review of Systems: All systems reviewed & are unremarkable except as noted in HPI and below PMFSH Past Medical History Medical History Anxiety Asthma Breast pain Herpes HPV in female Hypercholesteremia Iron deficiency anemia Obesity (BMI 35.0-39.9 without comorbidity) PCOS (polycystic ovarian syndrome) Surgical History Surgical History History of gynecological procedure (02/09/24) EMB Hx of tubal ligation (~2008) Normal colonoscopy (~2015) Family History Family History Father , At age 49 due to multiple complications of type 1 diabetes Hypertension Cerebrovascular accident Acute myocardial infarction Type 1 diabetes Multi-infarct dementia Chronic kidney disease Grandparent Heart disease maternal grandfather paternal grandfather Hodgkin lymphoma maternal grandmother Breast cancer maternal grandmother Mother Hypothyroidism Hypertension Daughter POTS (postural orthostatic tachycardia syndrome) Social History Social History Social History: The patient lives at home with her and 3 children. She used to smoke half a pack of cigarettes per day for between 8-10 years but quit smoking when her youngest child was warm. She rarely use his THC in order to try to help her sleep due to her restless leg symptoms associated with her anemia. She rarely drinks alcohol and only in small amounts. Code status: Full code Surrogate decision maker: Smoking packs per day: 0.5 Smoking cigarettes per day: 10.0 Years smoked: 12 Smoking pack-years: 6.00 Smoking status: Former smoker Tobacco type: cigarettes Second hand tobacco smoke exposure: Yes Smoking end date: 11/10/12 Alcohol intake: current Alcohol use details: HOLIDAYS Substance use: current Substance use type: marijuana Other substance usage details: FOR SLEEP Last use: 07/11/2022 Lack of Transportation: No Lack of Food: Never True Current Housing: I Have Housing Concerned About Future Housing: No Difficulty Paying Gas/Electric Bills: No Difficulty Paying for Meds: No Currently Unemployed: No Education: High School Diploma/GED Difficulty w/ Childcare or Family Care: No Living arrangements: with family Additional living arrangements comments: Occupation/Education: occupation 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 Gender identity (if verbalized by the patient): Female Sexual Orientation (if Verbalized by the Patient): Straight or Heterosexual Spiritual care concerns: No Meds Home Medications and Allergies Home Medications Medication Instructions Recorded Confirmed Type liraglutide 0.6 mg/0.1 mL (18 mg/3 1.8 mg subcut DAILY PCOS 04/11/22 03/09/24 History mL) subcutaneous pen injector (KartoonArttoza 2-Yo) magnesium oxide 400 mg (241.3 mg 400 tablet PO DAILY 04/11/22 03/09/24 History magnesium) tablet albuterol sulfate 90 mcg/actuation 2 puff inhalation Q4HWA PRN 02/07/23 03/09/24 History aerosol inhaler Shortness Of Breath clonazepam 1 mg tablet 1 mg PO DAILY
--- NOTE | 2024-03-10 12:53 | WPDANESEPPF ---
Anes - Initial Pre Proc Eval Procedure: Operation Date: 03/11/24 07:30 Proposed Procedures p Robotic Assisted Total Laparoscopic Hysterectomy with Bilateral Salpingectomy - Teo Blackmon MD Date/Time: 03/10/24 12:53 Surgeon: Teo Blackmon MD Pre Op Diagnosis: Abnormal uterine bleeding Patient Data Age: 38 Gender: F Height: 1.65 m Weight: 83.9 kg Allergies Allergy/AdvReac Type Severity Reaction Status Date / Time Sulfa (Sulfonamide Allergy Unknown Hives Verified 03/09/24 13:13 Antibiotics) hydrocodone AdvReac Unknown N/V/DIZZINE Verified 03/09/24 13:13 SS Home Medications Medication Instructions Recorded Confirmed Type liraglutide 0.6 mg/0.1 mL (18 mg/3 1.8 mg subcut DAILY PCOS 04/11/22 03/09/24 History mL) subcutaneous pen injector (Victoza 2-Yo) magnesium oxide 400 mg (241.3 mg 400 tablet PO DAILY 04/11/22 03/09/24 History magnesium) tablet albuterol sulfate 90 mcg/actuation 2 puff inhalation Q4HWA PRN 02/07/23 03/09/24 History aerosol inhaler Shortness Of Breath clonazepam 1 mg tablet 1 mg PO DAILY 08/19/23 03/09/24 History progesterone micronized 200 mg 200 mg PO QHS 90 days #90 caps 08/19/23 03/09/24 Rx capsule (Prometrium) Patient hx anesthesia problems: post op nausea/vomiting Family hx anesthesia problems: none Results Review: All pre-operative results and documents have been reviewed as part of the pre-operative evaluation. [facility] Past Medical History Medical History (Updated 03/10/24 @ 12:53 by Melvin Phillips DO) Anxiety Asthma Breast pain Herpes HPV in female Hypercholesteremia Iron deficiency anemia Obesity (BMI 35.0-39.9 without comorbidity) Palpitations PCOS (polycystic ovarian syndrome) Surgical History Surgical History History of gynecological procedure (02/09/24) EMB Hx of tubal ligation (~2008) Normal colonoscopy (~2015) Family History Family History Father , At age 49 due to multiple complications of type 1 diabetes Hypertension Cerebrovascular accident Acute myocardial infarction Type 1 diabetes Multi-infarct dementia Chronic kidney disease Grandparent Heart disease maternal grandfather paternal grandfather Hodgkin lymphoma maternal grandmother Breast cancer maternal grandmother Mother Hypothyroidism Hypertension Daughter POTS (postural orthostatic tachycardia syndrome) Social History Social History Social History: The patient lives at home with her and 3 children. She used to smoke half a pack of cigarettes per day for between 8-10 years but quit smoking when her youngest child was warm. She rarely use his THC in order to try to help her sleep due to her restless leg symptoms associated with her anemia. She rarely drinks alcohol and only in small amounts. Code status: Full code Surrogate decision maker: Smoking packs per day: 0.5 Smoking cigarettes per day: 10.0 Years smoked: 12 Smoking pack-years: 6.00 Smoking status: Former smoker Tobacco type: cigarettes Second hand tobacco smoke exposure: Yes Smoking end date: 11/10/12 Alcohol intake: current Alcohol use details: HOLIDAYS Substance use: current Substance use type: marijuana Other substance usage details: FOR SLEEP Last use: 07/11/2022 Lack of Transportation: No Lack of Food: Never True Current Housing: I Have Housing Concerned About Future Housing: No Difficulty Paying Gas/Electric Bills: No Difficulty Paying for Meds: No Currently Unemployed: No Education: High School Diploma/GED Difficulty w/ Childcare or Family Care: No Living arrangements: with family Additional living arrangements comments: Occupation/Education: occupation Additional occupatio
[2024-03-11] VITALS (11 sets, daily range): BP systolic 101–139; BP diastolic 53–82; PULSE 64–86; RESP 12–18; TEMP 36.3–37.5; O2SAT 100; BMI 30.4
--- NOTE | 2024-03-11 07:09 | WPDHPUPDATE1 ---
History and Physical Update Update Date/Time: 03/11/24 07:09 History and Physical has been reviewed, including an updated exam of the patient. There are NO changes in the patient's condition. Risks, benefits, and alternatives have been discussed and questions answered. Patient agrees to proceed with procedure.
[2024-03-11] MEDS: SCOPOLAMINE 1 MG PATCH 1 PATCH TRANSDERM (07:15)
[2024-03-11] MEDS: ACETAMINOPHEN 500 MG TABLET 1000 MG PO (07:20)
[2024-03-11] MEDS: KETOROLAC 15 MG/ML VIAL (*BKC) IV PUSH (07:20)
[2024-03-11] MEDS: LACTATED RINGERS 1,000 ML 30 ML IV CONT ×2 (07:21→09:05)
[2024-03-11] MEDS: ceFAZolin 2 GM/D5W 50 ML 2 GM/50 ML BAG IVPB (07:27)
--- NOTE | 2024-03-11 08:51 | P.OP_ITS ---
Procedure Note - Detailed Date of Procedure 03/11/24 Pre-op Diagnosis 1. Menometrorrhagia 2. Anemia 3. Enlarged uterus 4. Uterine prolapse Post-op Diagnosis Same Procedure Performed Robotic assisted total laparoscopic hysterectomy with bilateral salpingectomy Surgeon Teo Blackmon MD Anesthesia General Findings Enlarged globular uterus, tubes with evidence of prior ligation procedure, ovaries without abnormality Description of Procedure Patient prepped and draped in usual manner for this procedure. Cervical instruments were placed for uterine mobility throughout the case. Abdominal trocar sites were then marked and placed under direct visualization. Trocars were attached to the [employer] system a and instruments placed under direct visualization. Surgeon moved to the console and findings were noted as above. Bilaterally the mesial salpinx were cauterized and cut in tubes removed. Utero-ovarian round ligaments were cauterized and cut and the bladder flap was developed without difficulty. Posterior leaf the broad ligament was also incised to skeletonize the uterine vessels. Uterine vessels then cauterized and cut. Posterior colpotomy incision was then made and this was carried circumferentially to separate the cervix from the vagina. Uterus was delivered into the vagina and the cuff was then closed using V lock suture from the right angle to midline and from left angle midline. Good approximation hemostasis was noted. There was some oozing from the right edge of vaginal cuff which was rendered hemostatic using cautery. Kell was placed after irrigation was undertaken. Again monitored and there was no further bleeding or oozing. Gas was allowed to escape trocars removed incisions approximated 4-0 Monocryl. Patient was then sent to recovery room in stable condition. Estimated Blood Loss 100 Drains No Packing No Pathology Yes Complications No immediate complications Condition Stable Disposition PACU [facility] Billing Surgery - Charge Forward: Surgery Billing
[2024-03-11] MEDS: DEXTROSE 5%/0.45% SOD CHL 1,000 ML 125 ML IV CONT (10:28)
--- NOTE | 2024-03-11 10:37 | PC.NURSE ---
This patient, Andreea Mace, was received from PACU via bed on 03/11/24 at 1012. Patient/family oriented to unit policies and routines.
[2024-03-11] MEDS: ACETAMINOPHEN 325 MG TABLET 650 MG PO ×2 (10:50→17:29)
[2024-03-11] MEDS: KETOROLAC 30 MG/ML VIAL (*BKC) IV PUSH ×2 (13:35→20:04)
[2024-03-11] MEDS: ONDANSETRON INJ 4 MG/2 ML VIAL IV PUSH (13:35)
[2024-03-11] MEDS: SIMETHICONE 80 MG TAB.CHEW PO (17:29)
[2024-03-12 00:28] VITALS: BP 98/49; PULSE 96; RESP 20; TEMP 36.9; O2SAT 99
[2024-03-12 04:55] VITALS: BP 106/54; PULSE 108; RESP 20; TEMP 37.2; O2SAT 97
[2024-03-12] MEDS: KETOROLAC 30 MG/ML VIAL (*BKC) IV PUSH (05:07)
--- NOTE | 2024-03-12 07:22 | WPDANESPN ---
Anes - Prog Note Post-Op Date/Time: 03/12/24 07:22 Cardiovascular status: normal Respiratory status: normal Airway patency: baseline Mental status: baseline Post-Op hydration status: normal Vital Signs: Last Vital Signs Temp 37.2 C 03/12/24 04:55 Pulse 108 H 03/12/24 04:55 Resp 20 03/12/24 04:55 BP 106/54 L 03/12/24 04:55 Pulse Ox 97 03/12/24 04:55 O2 Del Method Room Air 03/12/24 04:55 O2 Flow Rate 10 03/11/24 09:20 Pain Score (VAS): 310 I/O: Intake & Output 03/11/24 03/11/24 03/12/24 15:59 23:59 07:59 Intake Total 50 Output Total 600 Balance -550 Post-procedural complaints: none Patient Feedback: Patient satisfied with anesthetic care.
[2024-03-12 07:50] VITALS: BP 110/52; PULSE 92; RESP 16; TEMP 37.1; O2SAT 100
[2024-03-12] MEDS: MAGNESIUM OXIDE 400 MG TABLET PO (08:28)
[2024-03-12] MEDS: SIMETHICONE 80 MG TAB.CHEW PO (08:29)
[2024-03-12] MEDS: ACETAMINOPHEN 325 MG TABLET 650 MG PO (08:30)
[2024-03-12 09:43] LABS: Basophils Percent Auto 0.4 % (0.2-1.2); Eosinophils Percent Auto 0.2 % (0-4.4); Hematocrit 24.9 % (37.0-47.0); Hemoglobin 7.6 g/dL (12.0-15.0); Immature Granulocyte Absolute 0.03 K/mm3 (0.00-0.031); Immature Granulocyte Percent A 0.3 % (0-0.5); Lymphocytes Absolute Auto 1.75 K/mm3 (0.9-3.2); Lymphocytes Percent Auto 19.2 % (18.3-44.2); Mean Corpuscular HGB Conc 30.5 g/dl (32-36); Mean Corpuscular Volume 91.9 fl (80-100); Mean Platelet Volume 10.6 fl (7.4-10.4); Monocytes Absolute Auto 0.8 K/mm3 (0.1-0.6); Monocytes Percent Auto 9.2 % (2.6-8.5); Neutrophils Absolute Auto 6.4 K/mm3 (1.3-6.7); Neutrophils Percent Auto 70.7 % (45.5-73.1); Platelet Count Result 229 k/mm3 (150-375); Red Blood Count 2.71 M/mm3 (4.2-5.4); Red Cell Distribution Width 16.8 % (11.5-14.5); White Blood Count 9.1 K/mm3 (4.5-10.0)
== END 2024-03-12 09:52 | disposition home or self-care (01) ==
LOC: ANHSURGERY 06:11 → ANHOB2 03-12 09:56
PROVIDERS: PCP Family Medicine; Visit Provider Obstetrics & Gynecology
PROC: (CPT 58571; principal; 2024-03-11 07:30)
DX: D25.9 Leiomyoma of uterus, unspecified (principal); N87.9 Dysplasia of cervix uteri, unspecified; N72 Inflammatory disease of cervix uteri; N88.8 Other specified noninflammatory disorders of cervix uteri; N92.1 Excessive and frequent menstruation with irregular cycle; D64.9 Anemia, unspecified; N81.4 Uterovaginal prolapse, unspecified; E28.2 Polycystic ovarian syndrome; J45.909 Unspecified asthma, uncomplicated; E66.9 Obesity, unspecified; Z68.30 Body mass index [BMI] 30.0-30.9, adult; Z87.891 Personal history of nicotine dependence; F12.90 Cannabis use, unspecified, uncomplicated; Z79.84 Long term (current) use of oral hypoglycemic drugs; Z79.51 Long term (current) use of inhaled steroids
CPT/HCPCS: 58571; S2900; 36415; 85025; 88307; A9270; J0690; J1170; J1885; J2250; J2405; J3010; J7030; J7120; Q9968

== ENCOUNTER 2024-03-17 11:58 | Emergency (ER) | payer OTHER, SELFPAY ==
[2024-03-17] VITALS (7 sets, daily range): BP systolic 123–134; BP diastolic 69–80; PULSE 76–90; RESP 16–18; TEMP 36.6; O2SAT 100
--- NOTE | ~2024-03-17 | US_ITS ---
EXAMINATION: US venous doppler LE RT DATE: 03/17/2024 13:27 INDICATION: Right lower limb pain. TECHNIQUE: Grayscale ultrasound images without and with compression and Doppler ultrasound images of the right lower extremity veins were obtained. COMPARISON: None. FINDINGS: The visualized portions of right common femoral vein, profunda (deep) femoral vein, femoral vein, pop liteal vein, peroneal veins, posterior tibial veins, and greater saphenous vein outflow are patent. IMPRESSION: 1. No deep venous thrombosis. Reviewed, dictated and finalized at location A.
--- NOTE | 2024-03-17 13:31 | ED.RECABL ---
HPI - Recheck/Abnormal Lab/Rx General Chief Complaint: Recheck/Abnormal Lab/Rx Stated Complaint: r/o DVT Time Seen by Provider: 03/17/24 12:58 History of Present Illness HPI narrative: 2-year-old female history of anemia presents to the emergency room for evaluation of right lower leg pain and subjective swelling since this morning. Patient status post hysterectomy 3 days ago. Patient was sent here via her PCP for evaluation of a possible DVT. Patient has no history of DVT PEs, no shortness of breath her chest pain. No bruising on her lower extremities. Has a history of cancer. Denies history of long periods of immobility Related Data Home Medications Medication Instructions Recorded Confirmed liraglutide 0.6 mg/0.1 mL (18 mg/3 1.8 mg subcut DAILY PCOS 04/11/22 03/17/24 mL) subcutaneous pen injector (Victoza 2-Yo) magnesium oxide 400 mg (241.3 mg 400 tablet PO DAILY 04/11/22 03/17/24 magnesium) tablet albuterol sulfate 90 mcg/actuation 2 puff inhalation Q4HWA PRN 02/07/23 03/17/24 aerosol inhaler Shortness Of Breath clonazepam 1 mg tablet 1 mg PO DAILY 08/19/23 03/17/24 Allergies Allergy/AdvReac Type Severity Reaction Status Date / Time Sulfa (Sulfonamide Allergy Unknown Hives Verified 03/17/24 10:39 Antibiotics) hydrocodone AdvReac Unknown N/V/DIZZINE Verified 03/17/24 10:39 SS Review of Systems Review of Systems: ROS unremarkable lytes noted in HPI PMFSH Past Medical History Medical History Anxiety Asthma Breast pain Herpes HPV in female Hypercholesteremia Iron deficiency anemia Obesity (BMI 35.0-39.9 without comorbidity) Palpitations PCOS (polycystic ovarian syndrome) Surgical History Surgical History History of gynecological procedure (02/09/24) EMB History of robot-assisted laparoscopic hysterectomy (03/11/24) Robotic assisted total laparoscopic hysterectomy with bilateral salpingectomy Hx of tubal ligation (~2008) Normal colonoscopy (~2015) Family History Family History Father , At age 49 due to multiple complications of type 1 diabetes Hypertension Cerebrovascular accident Acute myocardial infarction Type 1 diabetes Multi-infarct dementia Chronic kidney disease Grandparent Heart disease maternal grandfather paternal grandfather Hodgkin lymphoma maternal grandmother Breast cancer maternal grandmother Mother Hypothyroidism Hypertension Daughter POTS (postural orthostatic tachycardia syndrome) Social History Social History Social History: The patient lives at home with her and 3 children. She used to smoke half a pack of cigarettes per day for between 8-10 years but quit smoking when her youngest child was warm. She rarely use his THC in order to try to help her sleep due to her restless leg symptoms associated with her anemia. She rarely drinks alcohol and only in small amounts. Code status: Full code Surrogate decision maker: Smoking packs per day: 0.5 Smoking cigarettes per day: 10.0 Years smoked: 12 Smoking pack-years: 6.00 Smoking status: Former smoker Tobacco type: cigarettes Second hand tobacco smoke exposure: Yes Smoking end date: 11/10/12 Alcohol intake: current Alcohol use details: HOLIDAYS Substance use: current Substance use type: marijuana Other substance usage details: FOR SLEEP Last use: 07/11/2022 Lack of Transportation: No Lack of Food: Never True Current Housing: I Have Housing Concerned About Future Housing: No Difficulty Paying Gas/Electric Bills: No Difficulty Paying for Meds: No Currently Unemployed: No Education: High School Diploma/GED Difficulty w/ Childcare or Family Care: No Living arrangemen
[2024-03-17 14:57] LABS: Basophils Percent Auto 0.5 % (0.2-1.2); Eosinophils Absolute Auto 0.1 K/mm3 (0-0.3); Eosinophils Percent Auto 1.4 % (0-4.4); Hematocrit 24.7 % (37.0-47.0); Hemoglobin 7.5 g/dL (12.0-15.0); Immature Granulocyte Absolute 0.01 K/mm3 (0.00-0.031); Immature Granulocyte Percent A 0.2 % (0-0.5); Lymphocytes Absolute Auto 1.17 K/mm3 (0.9-3.2); Lymphocytes Percent Auto 20.5 % (18.3-44.2); Mean Corpuscular HGB Conc 30.4 g/dl (32-36); Mean Corpuscular Hemoglobin 28.8 pg (26-34); Mean Platelet Volume 9.6 fl (7.4-10.4); Monocytes Absolute Auto 0.5 K/mm3 (0.1-0.6); Monocytes Percent Auto 8.9 % (2.6-8.5); Neutrophils Absolute Auto 3.9 K/mm3 (1.3-6.7); Neutrophils Percent Auto 68.5 % (45.5-73.1); Platelet Count Result 260 k/mm3 (150-375); Red Cell Distribution Width 18.1 % (11.5-14.5); White Blood Count 5.7 K/mm3 (4.5-10.0)
[2024-03-17 15:08] LABS: Alanine Aminotransferase 61 U/L (6-35); Albumin Level 4.2 g/dL (3.5-5.1); Alkaline Phosphatase 73 U/L (38-126); Anion Gap 6 mmol/L (4-12); Aspartate Amino Transferase 34 U/L (14-36); Blood Urea Nitrogen 11 mg/dL (7-17); Calcium 8.9 mg/dL (8.4-10.2); Carbon Dioxide 26 mmol/L (22-30); Chloride 106 mmol/L (98-107); Estimated CRCL calculation 134 ml/min; Estimated Glomerular Filt Rate > 60; Glucose 95 mg/dL (65-110); Potassium 3.7 mmol/L (3.4-5.0); Sodium 138 mmol/L (137-145)
== END 2024-03-17 16:00 | disposition home or self-care (01) ==
PROVIDERS: Emergency Provider Nurse Practitioner Family; PCP Family Medicine
DX: M79.661 Pain in right lower leg (principal); D64.9 Anemia, unspecified; Z98.890 Other specified postprocedural states; J45.909 Unspecified asthma, uncomplicated; E78.00 Pure hypercholesterolemia, unspecified; E66.9 Obesity, unspecified; Z68.31 Body mass index [BMI] 31.0-31.9, adult; E28.2 Polycystic ovarian syndrome; G25.81 Restless legs syndrome; F41.9 Anxiety disorder, unspecified; Z87.891 Personal history of nicotine dependence; Z90.710 Acquired absence of both cervix and uterus; Z90.79 Acquired absence of other genital organ(s); Z79.85 Long-term (current) use of injectable non-insulin antidiabetic drugs
CPT/HCPCS: 36415; 80053; 85025; 93971; 99284

== ENCOUNTER 2024-03-19 20:54 | Inpatient (IN) | payer OTHER, SELFPAY ==
--- NOTE | ~2024-03-19 | CT_ITS ---
EXAMINATION: CT abscess cyst asp w imaging DATE: 03/22/2024 10:39 INDICATION: Peritoneal abscess. TECHNIQUE: The procedure including the risks, benefits, and alternatives was discussed with the patie nt. Risks discussed included bleeding and infection. The patient verbalized understanding of the risk s and agreed to proceed. The skin overlying the right buttock was prepped and draped in usual steril e fashion. Anesthetic was administered with 1% lidocaine subcutaneously. An 18 gauge trochar needle was inserted into the inferior peritoneal fluid collection under CT guidance. Fluid was aspirated. T he dose-length product was 224.00 mGy-cm. The needle was removed and the entry site was cleaned and d ressed. There were no immediate complications. FINDINGS: CT images demonstrate the needle tip in the inferior peritoneal fluid collection. IMPRESSION: 1. CT-guided aspiration of the inferior peritoneal fluid collection yielding 30 mL of serosanguineou s fluid. This fluid collection was completely drained and did not appear grossly infected so I did no t place a drain. I suspect that the hematoma in the left anterior abdomen would be too viscous to be drained. Reviewed, dictated and finalized at location A. IMPRESSION: 1. CT-guided aspiration of the inferior peritoneal fluid collection yielding 3 0 mL of serosanguineous fluid. This fluid collection was completely drained and did not appear grossly infected so I did not place a drain. I suspect that the hematoma in the left anterior abdomen would be too viscous to be drained.
--- NOTE | ~2024-03-19 | CT_ITS ---
EXAMINATION: CT abdomen pelvis wo con DATE: 03/21/2024 10:31 INDICATION: Fevers one week posthysterectomy. Increased left abdominal pain/pressure. Mildly diminish ed hemoglobin and hematocrit since admission. TECHNIQUE: Computed tomography (CT) of the abdomen and pelvis was performed without intravenous contr ast. Automated exposure control and iterative reconstruction technique were employed. Exam dose: 790 .15 mGy-cm total exam DLP. COMPARISON: 03/20/2024 CT abdomen pelvis 03/20/2024 CT abdomen pelvis FINDINGS: The lung bases are clear of infiltrate or consolidation. Normal heart size. No pericardial or pleural effusion. Liver, gallbladder, spleen, pancreas, adrenal glands and kidneys are unremarkable and not significant ly changed. Normal caliber of the abdominal aorta. Necessary change of large left pelvic and left rectus muscle hematoma since 03/20/2024. Stable posteri or right probable complicated fluid collection. There is increased small bowel distention, with fluid levels in the small and large bowel, likely due to adynamic ileus. IMPRESSION: Increased small bowel distention and fluid levels in small and large bowel since yesterd ay, likely due to adynamic ileus Reviewed, dictated and finalized at [facility]. Reviewed, dictated and finalized at location A. IMPRESSION: Increased small bowel distention and fluid levels in small and lar ge bowel since yesterday, likely due to adynamic ileus
--- NOTE | ~2024-03-19 | CT_ITS ---
EXAMINATION: CT abdomen pelvis w con DATE: 03/20/2024 00:45 INDICATION: Fevers one week posthysterectomy TECHNIQUE: Computed tomography (CT) of the abdomen and pelvis was performed with 100 CC Omnipaque 350 intravenous contrast. Automated exposure control and iterative reconstruction technique were employe d. Exam dose: 847.42 mGy-cm total exam DLP. COMPARISON: 10/28/2019 CT abdomen pelvis FINDINGS: The lung bases are clear. Normal heart size. No pericardial or pleural effusion. The liver, gallbladder, bile ducts, spleen, pancreas, pancreatic duct, and adrenal glands and kidneys are unremarkable. Normal caliber of the abdominal aorta. No intraperitoneal or retroperitoneal or pelvic mass lesion or adenopathy is noted. There is a prominent hematoma of the left rectus muscle and underlying prominent probable left pelvic hematoma, impressing the left side of the urinary bladder. Probable complicated fluid collection such as hematoma or abscess in the posterior cul-de-sac area, m easuring up to 3 x 4 cm. Status post hysterectomy. No bowel obstruction or intraperitoneal free air. IMPRESSION: Hematoma of lower left rectus muscle and anterior left pelvic hematoma 3 x 4 cm hematoma or abscess in the posterior cul-de-sac post hysterectomy Reviewed, dictated and finalized at [facility]. Reviewed, dictated and finalized at location A. IMPRESSION: Hematoma of lower left rectus muscle and anterior left pelvic noah phil 3 x 4 cm hematoma or abscess in the posterior cul-de-sac post hysterectomy
--- NOTE | ~2024-03-19 | CT_ITS ---
EXAMINATION: CTA abdomen pelvis DATE: 03/20/2024 05:37 INDICATION: Concern for possible active hemorrhage. Fevers one week posthysterectomy. TECHNIQUE: Computed tomography (CT) of the abdomen and pelvis was performed with 100 CC Omnipaque 350 intravenous contrast. Automated exposure control and iterative reconstruction technique were employe d. Exam dose: 596.98 mGy-cm total exam DLP. COMPARISON: 03/20/2024 CT abdomen pelvis FINDINGS: The lung bases are clear of infiltrates or consolidation. Normal heart size. No pericardial or pleural effusion. Liver, spleen, pancreas, adrenal glands and kidneys are unremarkable. The gallbladder is contracted. No bile duct or pancreatic duct dilatation. Normal caliber of the abdominal aorta. Prominent hematoma of the lower left rectus muscle with underlying anterior left pelvic hematoma, wit hout evidence of an active bleed at this time. No extravasated contrast material is noted in these ar eas of hematoma. There is prominent impression upon the urinary bladder by the large left pelvic noah phil. Approximately 3 to 4 cm probable hematoma or less likely abscess is again noted in the posterior lowe r right pelvic area. IMPRESSION: No active bleeding is demonstrated this time Reviewed, dictated and finalized at [facility]. Reviewed, dictated and finalized at location A.
[2024-03-19 21:15] VITALS: BP 151/76; PULSE 138; RESP 20; TEMP 38.8; O2SAT 100
[2024-03-19 21:29] LABS: Basophils Percent Auto 0.2 % (0.2-1.2); Eosinophils Absolute Auto 0.1 K/mm3 (0-0.3); Eosinophils Percent Auto 0.5 % (0-4.4); Hemoglobin 8.3 g/dL (12.0-15.0); Immature Granulocyte Absolute 0.02 K/mm3 (0.00-0.031); Immature Granulocyte Percent A 0.2 % (0-0.5); Lymphocytes Absolute Auto 0.52 K/mm3 (0.9-3.2); Lymphocytes Percent Auto 5.5 % (18.3-44.2); Mean Corpuscular HGB Conc 30.7 g/dl (32-36); Mean Corpuscular Hemoglobin 28.9 pg (26-34); Mean Corpuscular Volume 94.1 fl (80-100); Monocytes Absolute Auto 0.6 K/mm3 (0.1-0.6); Neutrophils Absolute Auto 8.2 K/mm3 (1.3-6.7); Neutrophils Percent Auto 87.6 % (45.5-73.1); Platelet Count Result 330 k/mm3 (150-375); Red Blood Count 2.87 M/mm3 (4.2-5.4); Red Cell Distribution Width 17.2 % (11.5-14.5); White Blood Count 9.4 K/mm3 (4.5-10.0)
[2024-03-19 21:35] LABS: Appearance Urine Clear (Clear); Bacteria Urine None Seen /hpf; Bilirubin Urine Negative (Negative); Blood Urine Negative (Negative); Color Urine Yellow (Yellow); Glucose Urine UA Negative (Negative); Ketones Urine Negative (Negative); Leukocyte Esterase Ur Trace LEU/UL (Negative); Nitrate Urine Negative (Negative); Non Pathogenic Casts 0-2; Protein Urine Negative (Negative); Specific Grav Ur 1.021 (1.001-1.035); Squamous Epithelial Cell Urine Occasional /hpf (Few); Urobilinogen Urine 0.2 mg/dL (<2.0); pH Urine 5.5 (5.0-9.0)
[2024-03-19 21:36] LABS: Add Urine Microscopic? YES
[2024-03-19 21:39] LABS: Alanine Aminotransferase 43 U/L (6-35); Albumin Level 4.5 g/dL (3.5-5.1); Alkaline Phosphatase 84 U/L (38-126); Anion Gap 8 mmol/L (4-12); Aspartate Amino Transferase 24 U/L (14-36); Bilirubin,Total 0.9 mg/dL (0.2-1.3); Blood Urea Nitrogen 11 mg/dL (7-17); Calcium 9.1 mg/dL (8.4-10.2); Carbon Dioxide 24 mmol/L (22-30); Chloride 104 mmol/L (98-107); Estimated CRCL calculation 134 ml/min; Estimated Glomerular Filt Rate > 60; Glucose 119 mg/dL (65-110); Lipase 21 U/L (23-300); Potassium 3.7 mmol/L (3.4-5.0); Sodium 136 mmol/L (137-145)
[2024-03-20] MEDS: ACETAMINOPHEN 500 MG TABLET 1000 MG PO (00:51)
[2024-03-20] MEDS: LACTATED RINGERS 1,000 ML 999 ML IV CONT (00:51)
[2024-03-20 00:55] VITALS: BP 113/68; PULSE 101; RESP 14; O2SAT 100
[2024-03-20 01:51] VITALS: BP 115/67; PULSE 102; RESP 16; O2SAT 100
[2024-03-20] MEDS: PIPERACILLN/TAZ 3.375GM/NS50ML 3.375 GM/50 ML BAG IVPB ×4 (01:51→23:54)
--- NOTE | 2024-03-20 04:32 | ED.ABDPAIN ---
HPI - Abdominal Pain General Chief Complaint: Abdominal Pain Stated Complaint: UTI, fever, n/v Time Seen by Provider: 03/20/24 00:00 History of Present Illness HPI narrative: Patient had hysterectomy 5 days ago for heavy uterine bleeding, and history started having some lower abdominal discomfort, and severe dysuria, frequency, today she was having fevers or chills so came into the hospital. Related Data Home Medications Medication Instructions Recorded Confirmed liraglutide 0.6 mg/0.1 mL (18 mg/3 1.8 mg subcut DAILY PCOS 04/11/22 03/17/24 mL) subcutaneous pen injector ([employer] 2-Yo) magnesium oxide 400 mg (241.3 mg 400 tablet PO DAILY 04/11/22 03/17/24 magnesium) tablet albuterol sulfate 90 mcg/actuation 2 puff inhalation Q4HWA PRN 02/07/23 03/17/24 aerosol inhaler Shortness Of Breath clonazepam 1 mg tablet 1 mg PO DAILY 08/19/23 03/17/24 Allergies Allergy/AdvReac Type Severity Reaction Status Date / Time Sulfa (Sulfonamide Allergy Unknown Hives Verified 03/17/24 10:39 Antibiotics) hydrocodone AdvReac Unknown N/V/DIZZINE Verified 03/17/24 10:39 SS Review of Systems Review of Systems: All systems reviewed & are unremarkable except as noted in HPI and below PMFSH Past Medical History Medical History Anxiety Asthma Breast pain Herpes HPV in female Hypercholesteremia Iron deficiency anemia Obesity (BMI 35.0-39.9 without comorbidity) Palpitations PCOS (polycystic ovarian syndrome) Surgical History Surgical History History of gynecological procedure (02/09/24) EMB History of robot-assisted laparoscopic hysterectomy (03/11/24) Robotic assisted total laparoscopic hysterectomy with bilateral salpingectomy Hx of tubal ligation (~2008) Normal colonoscopy (~2015) Family History Family History Father , At age 49 due to multiple complications of type 1 diabetes Hypertension Cerebrovascular accident Acute myocardial infarction Type 1 diabetes Multi-infarct dementia Chronic kidney disease Grandparent Heart disease maternal grandfather paternal grandfather Hodgkin lymphoma maternal grandmother Breast cancer maternal grandmother Mother Hypothyroidism Hypertension Daughter POTS (postural orthostatic tachycardia syndrome) Social History Social History Social History: The patient lives at home with her and 3 children. She used to smoke half a pack of cigarettes per day for between 8-10 years but quit smoking when her youngest child was warm. She rarely use his THC in order to try to help her sleep due to her restless leg symptoms associated with her anemia. She rarely drinks alcohol and only in small amounts. Code status: Full code Surrogate decision maker: Smoking packs per day: 0.5 Smoking cigarettes per day: 10.0 Years smoked: 12 Smoking pack-years: 6.00 Smoking status: Former smoker Tobacco type: cigarettes Second hand tobacco smoke exposure: Yes Smoking end date: 11/10/12 Alcohol intake: current Alcohol use details: [place]IDAYS Substance use: current Substance use type: marijuana Other substance usage details: FOR SLEEP Last use: 07/11/2022 Lack of Transportation: No Lack of Food: Never True Current Housing: I Have Housing Concerned About Future Housing: No Difficulty Paying Gas/Electric Bills: No Difficulty Paying for Meds: No Currently Unemployed: No Education: High School Diploma/GED Difficulty w/ Childcare or Family Care: No Living arrangements: with family Additional living arrangements comments: Occupation/Education: occupation 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
[2024-03-20 05:34] VITALS: BP 131/80; PULSE 108; RESP 18; TEMP 36.9; O2SAT 100
[2024-03-20 05:50] LABS: INR 1.3; Prothrombin Time 16.5 Seconds (11.1-14.7)
[2024-03-20 05:51] LABS: Partial Thromboplastin Time 46.9 Seconds (22.3-36.8)
--- NOTE | 2024-03-20 06:34 | ADMGEN ---
This patient, Andreea Mace, was admitted to -. Patient/family oriented to hospital policies and general routines including ID bracelet, bed and alarms, visiting hours, pain management, procedures, bathroom and other care routines, personal items, smoking policy, room service/diet, and visiting hours. Information on how to activate the Rapid Response Team has been discussed. Patient/Family are encouraged to report perceived risks to care and to ask questions if they do not understand what they are told or what they should do.
[2024-03-20 06:43] VITALS: BP 130/75; PULSE 102; RESP 16; TEMP 36.8; O2SAT 100; BMI 30.9
--- NOTE | 2024-03-20 11:02 | PM.IMHP ---
H&P: HPI History of Present Illness Date/Time: 03/20/24 11:02 Chief Complaint: Increasing lower abdominal pain Narrative: Patient is a 38-year-old female status post robotic hysterectomy on March 14 uncomplicated. She did have some postop abdominal bruising and she was evaluated on 03/17 in the office no signs of active bleeding. She presented to the ED today due to increasing lower abdominal pain and difficulty urinating and bladder pressure. This was different than previous days. In the ED she did have a fever. CT showed Hematoma of lower left rectus muscle and anterior left pelvic hematoma 3 x 4 cm hematoma or abscess in the posterior cul-de-sac post hysterectomy. UA did have some white blood cells. She does complain some mild constipation symptoms. Hemoglobin increased from last h/h. Review of Systems Review of Systems: All systems reviewed & are unremarkable except as noted in HPI and below Cardiovascular: Cardiovascular: Reports no additional cardiovascular complaints, Denies chest pain and Denies dyspnea Respiratory: Respiratory: Reports no additional respiratory complaints and Denies dyspnea Gastrointestinal: Gastrointestinal: Reports abdominal pain, Denies change in bowel habits, Denies diarrhea, Denies nausea and Denies vomiting Genitourinary: Genitourinary: Reports as per HPI and Reports pelvic pain Psychiatric: Psychiatric: Reports no additional psychiatric complaints PMFSH Past Medical History Medical History Anxiety Asthma Breast pain Herpes HPV in female Hypercholesteremia Iron deficiency anemia Obesity (BMI 35.0-39.9 without comorbidity) Palpitations PCOS (polycystic ovarian syndrome) Surgical History Surgical History History of gynecological procedure (02/09/24) EMB History of robot-assisted laparoscopic hysterectomy (03/11/24) Robotic assisted total laparoscopic hysterectomy with bilateral salpingectomy Hx of tubal ligation (~2008) Normal colonoscopy (~2015) Family History Family History Father , At age 49 due to multiple complications of type 1 diabetes Hypertension Cerebrovascular accident Acute myocardial infarction Type 1 diabetes Multi-infarct dementia Chronic kidney disease Grandparent Heart disease maternal grandfather paternal grandfather Hodgkin lymphoma maternal grandmother Breast cancer maternal grandmother Mother Hypothyroidism Hypertension Daughter POTS (postural orthostatic tachycardia syndrome) Social History Social History Social History: The patient lives at home with her and 3 children. She used to smoke half a pack of cigarettes per day for between 8-10 years but quit smoking when her youngest child was warm. She rarely use his THC in order to try to help her sleep due to her restless leg symptoms associated with her anemia. She rarely drinks alcohol and only in small amounts. Code status: Full code Surrogate decision maker: Smoking packs per day: 0.5 Smoking cigarettes per day: 10.0 Years smoked: 12 Smoking pack-years: 6.00 Smoking status: Former smoker Tobacco type: cigarettes Second hand tobacco smoke exposure: No Smoking end date: 11/10/12 Alcohol intake: current Drinks per week: 1 Alcohol use details: [place]OL[place] Substance use: current Substance use type: marijuana Other substance usage details: FOR SLEEP Last use: 07/11/2022 Do You Feel Safe in your Home?: Yes Lack of Transportation: No Lack of Food: Never True Current Housing: I Have Housing Concerned About Future Housing: No Difficulty Paying Gas/Electric Bills: No Difficulty Paying for Meds: No Currently Unemployed: No Education: Associate Degree Difficulty w/ [employer]
[2024-03-20] MEDS: GLYCERIN ADULT 1 SUPP.RECT RECTAL (12:17)
[2024-03-20] MEDS: polyethylene glycoL 3350 17 GM POWD.PACK PO ×2 (12:24→17:00)
[2024-03-20 14:00] VITALS: BP 118/76; PULSE 70; RESP 16; TEMP 36.4; O2SAT 100
[2024-03-20 20:44] VITALS: BP 117/56; PULSE 98; RESP 18; TEMP 36.6; O2SAT 98
[2024-03-21] MEDS: ONDANSETRON INJ 4 MG/2 ML VIAL IV PUSH ×3 (00:22→21:03)
[2024-03-21 05:51] VITALS: BP 118/62; PULSE 97; RESP 20; TEMP 37.2; O2SAT 98
[2024-03-21] MEDS: PIPERACILLN/TAZ 3.375GM/NS50ML 3.375 GM/50 ML BAG IVPB ×3 (05:54→22:30)
[2024-03-21 06:07] LABS: Basophils Percent Auto 0.2 % (0.2-1.2); Eosinophils Percent Auto 0.1 % (0-4.4); Hematocrit 25.2 % (37.0-47.0); Hemoglobin 7.6 g/dL (12.0-15.0); Immature Granulocyte Absolute 0.04 K/mm3 (0.00-0.031); Immature Granulocyte Percent A 0.4 % (0-0.5); Lymphocytes Absolute Auto 0.68 K/mm3 (0.9-3.2); Lymphocytes Percent Auto 6.8 % (18.3-44.2); Mean Corpuscular HGB Conc 30.2 g/dl (32-36); Mean Corpuscular Hemoglobin 28.6 pg (26-34); Mean Corpuscular Volume 94.7 fl (80-100); Mean Platelet Volume 9.7 fl (7.4-10.4); Monocytes Absolute Auto 0.7 K/mm3 (0.1-0.6); Monocytes Percent Auto 6.6 % (2.6-8.5); Neutrophils Absolute Auto 8.6 K/mm3 (1.3-6.7); Neutrophils Percent Auto 85.9 % (45.5-73.1); Platelet Count Result 336 k/mm3 (150-375); Red Blood Count 2.66 M/mm3 (4.2-5.4); Red Cell Distribution Width 16.9 % (11.5-14.5); White Blood Count 10.1 K/mm3 (4.5-10.0)
[2024-03-21 08:26] VITALS: O2SAT 96
--- NOTE | 2024-03-21 10:09 | PM.GYNPNOP ---
METHODS SPECIALIST - A/P Assessment and plan (1) Pelvic hematoma: Status: Acute Assessment and Plan: H/h slightly decreased from yesterday but stable from over a week ago. Since she c/o more discomfort will get CT this morning to rule out increase in the pelvic hematoma. On exam, area palpated that was not felt yesterday, this is most likely organized hematoma, it is at area of hematoma on CT, but to due her complaints of increase discomfort and mild change in H/H will rule out active bleed. If increase then blood transfusion and determine if need for surgery. If no signs of significant increase then will give iron infusion. WBC mildly increased. Will continue IV antibiotics due to clinical symptoms. Urine culture and blood culture neg currently neg. (2) Postoperative anemia: Code(s): D64.9 - Anemia, unspecified Status: Acute Time Spent With Patient Time: Total time spent is greater than 50% in coordination of care (as documented) at patient's floor/unit and/or counseling patient: Time with patient: less than 15 minutes METHODS SPECIALIST- PN:Subj Post-Op Subjective Date/time seen: 03/21/24 10:09 Interval history: She states she feels somewhat more pressure on her left mid abdomen flank area since admission. No lightheadedness or dizziness. Suprapubic pressure better. Nausea resolved. Tolerated regular food this am. She did have BM last evening. Exam Const: General: no acute distress Orientation/consciousness: oriented to person and oriented to place HENMT: Head: normal to inspection Eyes: General: appearance normal, both eyes and all related structures Resp: Effort & Inspection: normal respiratory effort GI: GI Palp: No Rebound tenderness present Other: Nondistended, incisions healing bruising at the mons suprapubic area no change, 2-3 cm mildly tender area lower abdomen to left of midline. Neuro: General: oriented to person and oriented to place Extrem: General: normal to inspection Psych: Appearance: grossly normal METHODS SPECIALIST - PN: Obj Data Vital Signs Vital Signs: Vital Signs - 24 hr 03/20/24 14:00 03/20/24 20:44 03/20/24 20:00 Temperature 97.6 F 98 F Pulse Rate 70 98 Respiratory Rate 16 18 Blood Pressure 118/76 117/56 L Pulse Oximetry 100 98 Oxygen Delivery Room Air 03/21/24 05:51 03/21/24 08:26 Temperature 98.9 F Pulse Rate 97 Respiratory Rate 20 Blood Pressure 118/62 Pulse Oximetry 98 96 Oxygen Delivery Room Air Intake/Output Intake/Output: Intake & Output 03/18/24 03/19/24 03/20/24 03/21/24 23:59 23:59 23:59 23:59 Intake Total 1150 587 Balance 1150 587 Meds/Results Medications: Active Medications Generic Name Dose Route Start Last Admin Trade Name Freq PRN Reason Stop Dose Admin Acetaminophen 1,000 mg 03/20/24 15:24 Acetaminophen 500 Mg Tablet PO Q6H PRN Mild Pain (1-3) or Fever Clonazepam 1 mg 03/20/24 16:49 Clonazepam (*Crx) 0.5 Mg Tablet PO BID PRN Anxiety Piperacillin/Tazobactam/Dextrose 3.375 gm in 50 mls @ 100 mls/hr 03/20/24 11:15 03/21/24 05:54 Zosyn 3.375 Gm/Ns 50 Ml IVPB 100 mls/hr Q6HR MELISSA Administration Ondansetron HCl 4 mg 03/21/24 00:09 03/21/24 00:22 Ondansetron Inj 4 Mg/2 Ml Vial IV PUSH 4 mg Q4H PRN Administration Nausea And Vomiting Polyethylene Glycol 17 gm 03/20/24 11:00 03/20/24 17:00 Polyethylene Glycol 3350 17 Gm Powd.Pack PO 17 gm BID MELISSA Administration Radiology Results: ITS Impressions Abdomen/Pelvis CT 03/20/24 09:29 IMPRESSION: Hematoma of lower left rectus muscle and anterior left pelvic hematoma 3 x 4 cm hematoma or abscess in the posterior cul-de-sac post hysterectomy Abdomen/Pelvis CTA 03/20/24 12:04 IMPRESSION: No active bleeding is demonstrated this time Labs 03/21/24 05:13 03/19/24 21:23 Labs: Laboratory Results - last 24 hr 03/21/24 05:13 WBC 10.1 H RBC 2.66 L Hgb 7.6 L H
[2024-03-21 14:00] VITALS: BP 133/76; PULSE 91; RESP 20; TEMP 36.6; O2SAT 100
[2024-03-21] MEDS: polyethylene glycoL 3350 17 GM POWD.PACK PO (14:19)
[2024-03-21] MEDS: IRON SUCROSE COMPLEX 500 MG in SODIUM CHLORIDE 0.9% IV 250 ML 79 MG IVPB (15:02)
[2024-03-21 21:09] VITALS: BP 149/73; PULSE 98; RESP 18; TEMP 36.6; O2SAT 100
[2024-03-22] MEDS: PIPERACILLN/TAZ 3.375GM/NS50ML 3.375 GM/50 ML BAG IVPB ×3 (05:17→17:41)
[2024-03-22] MEDS: ONDANSETRON INJ 4 MG/2 ML VIAL IV PUSH (05:22)
[2024-03-22 06:00] VITALS: BP 133/57; PULSE 92; RESP 18; TEMP 36.6; O2SAT 98
[2024-03-22 09:12] LABS: Mean Platelet Volume 9.1 fl (7.4-10.4); Platelet Count Result 340 k/mm3 (150-375)
[2024-03-22 09:13] LABS: Hematocrit 27.7 % (37.0-47.0); Hemoglobin 8.5 g/dL (12.0-15.0); Mean Corpuscular HGB Conc 30.7 g/dl (32-36); Mean Corpuscular Hemoglobin 28.6 pg (26-34); Mean Corpuscular Volume 93.3 fl (80-100); Mean Platelet Volume 8.9 fl (7.4-10.4); Platelet Count Result 316 k/mm3 (150-375); Red Blood Count 2.97 M/mm3 (4.2-5.4); Red Cell Distribution Width 16.5 % (11.5-14.5); White Blood Count 7.8 K/mm3 (4.5-10.0)
[2024-03-22] MEDS: DEXTROSE 5%/LACTATED RINGERS 1,000 ML 125 ML IV CONT (09:26)
[2024-03-22] MEDS: DEXTROSE 5%/LACTATED RINGERS 500 ML IV CONT (09:26)
[2024-03-22 09:33] LABS: INR 1.3; Prothrombin Time 16.5 Seconds (11.1-14.7)
[2024-03-22 09:38] LABS: Partial Thromboplastin Time 45.4 Seconds (22.3-36.8)
[2024-03-22 13:53] VITALS: BP 120/63; PULSE 83; RESP 18; TEMP 36.5; O2SAT 100
--- NOTE | 2024-03-22 16:22 | PM.GYNPNOP ---
AIRPORT LOCATION MANAGER - A/P Time Spent With Patient Time: Total time spent is greater than 50% in coordination of care (as documented) at patient's floor/unit and/or counseling patient: Time with patient: 15 - 25 minutes AIRPORT LOCATION MANAGER- PN:Muriel Post-Op Subjective Date/time seen: 03/22/24 16:22 S: Pain well controlled though still left-sided discomfort. Diet tolerated though after eating feels nauseous and bloaty. She has had no vaginal bleeding. O: VSS afebrile Abdomen: positive bowel sounds soft incisions well healed . Perineum: Bruising noted ( decreased from exam in office last week) CBC noted. CT drainage noted. Mild elevation of PT /PTT A: Continue current therapy/will change ab to oral for empiric course tomorrow though no obvious evidence infection P: as above, discussed with patient/. Likely home day or two. Will have her f/u with hematology post discharge. Interval history: She states she feels somewhat more pressure on her left mid abdomen flank area since admission. No lightheadedness or dizziness. Suprapubic pressure better. Nausea resolved. Tolerated regular food this am. She did have BM last evening. AIRPORT LOCATION MANAGER - PN: Obj Data Vital Signs Vital Signs: Vital Signs - 24 hr 03/21/24 21:09 03/21/24 20:00 03/22/24 06:00 Temperature 97.8 F 97.9 F Pulse Rate 98 92 Respiratory Rate 18 18 Blood Pressure 149/73 H 133/57 L Pulse Oximetry 100 98 Oxygen Delivery Room Air 03/22/24 08:00 03/22/24 13:53 Temperature 97.7 F Pulse Rate 83 Respiratory Rate 18 Blood Pressure 120/63 Pulse Oximetry 100 Oxygen Delivery Room Air Intake/Output Intake/Output: Intake & Output 03/19/24 03/20/24 03/21/24 03/22/24 23:59 23:59 23:59 23:59 Intake Total 3525 402 3181 Balance 7322 476 2833 Meds/Results Medications: Active Medications Generic Name Dose Route Start Last Admin Trade Name Freq PRN Reason Stop Dose Admin Acetaminophen 1,000 mg 03/20/24 15:24 Acetaminophen 500 Mg Tablet PO Q6H PRN Mild Pain (1-3) or Fever Clonazepam 1 mg 03/20/24 16:49 Clonazepam (*Crx) 0.5 Mg Tablet PO BID PRN Anxiety Piperacillin/Tazobactam/Dextrose 3.375 gm in 50 mls @ 100 mls/hr 03/20/24 11:15 03/22/24 12:46 Zosyn 3.375 Gm/Ns 50 Ml IVPB Infused Q6HR MELISSA Infusion Dextrose/Lactated Ringer's 1,000 mls @ 100 mls/hr 03/22/24 10:00 03/22/24 09:26 Dextrose 5%/Lactated Ringers IV CONT 125 mls/hr .Q10H MELISSA Administration Ondansetron HCl 4 mg 03/21/24 00:09 03/22/24 05:22 Ondansetron Inj 4 Mg/2 Ml Vial IV PUSH 4 mg Q4H PRN Administration Nausea And Vomiting Polyethylene Glycol 17 gm 03/20/24 11:00 03/22/24 09:26 Polyethylene Glycol 3350 17 Gm Powd.Pack PO Not Given BID MELISSA Radiology Results: ITS Impressions Abdomen/Pelvis CTA 03/20/24 12:04 IMPRESSION: No active bleeding is demonstrated this time Abdomen/Pelvis CT 03/21/24 10:49 IMPRESSION: Increased small bowel distention and fluid levels in small and large bowel since yesterday, likely due to adynamic ileus Cyst Aspiration CT 03/22/24 10:40 IMPRESSION: 1. CT-guided aspiration of the inferior peritoneal fluid collection yielding 30 mL of serosanguineous fluid. This fluid collection was completely drained and did not appear grossly infected so I did not place a drain. I suspect that the hematoma in the left anterior abdomen would be too viscous to be drained. Labs 03/22/24 09:03 03/19/24 21:23 Labs: Laboratory Results - last 24 hr 03/22/24 03/22/24 03/22/24 09:03 09:03 09:03 WBC 7.8 RBC 2.97 L Hgb 8.5 L Hct 27.7 L MCV 93.3 MCH 28.6 MCHC 30.7 L RDW 16.5 H Plt Count 316 340 MPV 8.9 9.1 PT 16.5 H INR 1.3 APTT 45.4 H
[2024-03-22] MEDS: polyethylene glycoL 3350 17 GM POWD.PACK PO (17:42)
[2024-03-22 20:00] VITALS: O2SAT 100
[2024-03-22 22:00] VITALS: BP 112/61; PULSE 94; RESP 16; TEMP 36.8; O2SAT 100
[2024-03-23] MEDS: PIPERACILLN/TAZ 3.375GM/NS50ML 3.375 GM/50 ML BAG IVPB ×2 (00:30→05:30)
[2024-03-23] MEDS: SODIUM CHLORIDE 0.9% IV 100 ML 10 ML (00:30)
[2024-03-23 06:00] VITALS: BP 114/64; PULSE 87; RESP 14; TEMP 37; O2SAT 99
[2024-03-23] MEDS: polyethylene glycoL 3350 17 GM POWD.PACK PO ×2 (09:14→17:58)
[2024-03-23] MEDS: SIMETHICONE 80 MG TAB.CHEW PO (12:18)
[2024-03-23 14:00] VITALS: BP 116/63; PULSE 80; RESP 18; TEMP 36.5; O2SAT 100
[2024-03-23] MEDS: CEPHALEXIN 500 MG CAPSULE PO ×2 (17:58→23:32)
--- NOTE | 2024-03-23 18:12 | PM.GYNPNOP ---
CLINICAL TECHNICIAN - A/P Time Spent With Patient Time: Total time spent is greater than 50% in coordination of care (as documented) at patient's floor/unit and/or counseling patient: Time with patient: less than 15 minutes CLINICAL TECHNICIAN- PN:Subj Post-Op Subjective Date/time seen: 03/23/24 18:12 ( patient seen at 11:30 a.m. this morning) S: overall feels better. no nausea, LLQ pain continues. O: VSS afebrile abd: soft, hematoma palpated perineum: bruising decreased A: improving P: will change to oral ab, and likely home tomorrow. Discussed at length expectations for after discharge, and slow resolution of hematoma expected. Questions answered from patient/. Interval history: She states she feels somewhat more pressure on her left mid abdomen flank area since admission. No lightheadedness or dizziness. Suprapubic pressure better. Nausea resolved. Tolerated regular food this am. She did have BM last evening. CLINICAL TECHNICIAN - PN: Obj Data Vital Signs Vital Signs: Vital Signs - 24 hr 03/22/24 22:00 03/22/24 20:00 03/23/24 06:00 Temperature 98.2 F 98.6 F Pulse Rate 94 87 Respiratory Rate 16 14 Blood Pressure 112/61 114/64 Pulse Oximetry 100 100 99 Oxygen Delivery Room Air 03/23/24 14:00 03/23/24 08:00 Temperature 97.7 F Pulse Rate 80 Respiratory Rate 18 Blood Pressure 116/63 Pulse Oximetry 100 Oxygen Delivery Room Air Intake/Output Intake/Output: Intake & Output 03/20/24 03/21/24 03/22/24 03/23/24 23:59 23:59 23:59 23:59 Intake Total 2924 938 2841 1122 Balance 8431 778 7255 1122 Meds/Results Medications: Active Medications Generic Name Dose Route Start Last Admin Trade Name Freq PRN Reason Stop Dose Admin Acetaminophen 1,000 mg 03/20/24 15:24 Acetaminophen 500 Mg Tablet PO Q6H PRN Mild Pain (1-3) or Fever Cephalexin HCl 500 mg 03/23/24 18:00 03/23/24 17:58 Cephalexin 500 Mg Capsule PO 500 mg Q6HR MELISSA Administration Clonazepam 1 mg 03/20/24 16:49 Clonazepam (*Crx) 0.5 Mg Tablet PO BID PRN Anxiety Dextrose/Lactated Ringer's 1,000 mls @ 100 mls/hr 03/22/24 10:00 03/23/24 06:45 Dextrose 5%/Lactated Ringers IV CONT Not Given .Q10H MELISSA Ondansetron HCl 4 mg 03/21/24 00:09 03/22/24 05:22 Ondansetron Inj 4 Mg/2 Ml Vial IV PUSH 4 mg Q4H PRN Administration Nausea And Vomiting Polyethylene Glycol 17 gm 03/20/24 11:00 03/23/24 17:58 Polyethylene Glycol 3350 17 Gm Powd.Pack PO 17 gm BID MELISSA Administration Simethicone 80 mg 03/23/24 11:50 03/23/24 12:18 Simethicone 80 Mg Tab.Chew PO 80 mg QID PRN Administration Gas Discomfort Radiology Results: ITS Impressions Abdomen/Pelvis CTA 03/20/24 12:04 IMPRESSION: No active bleeding is demonstrated this time Abdomen/Pelvis CT 03/21/24 10:49 IMPRESSION: Increased small bowel distention and fluid levels in small and large bowel since yesterday, likely due to adynamic ileus Cyst Aspiration CT 03/22/24 10:40 IMPRESSION: 1. CT-guided aspiration of the inferior peritoneal fluid collection yielding 30 mL of serosanguineous fluid. This fluid collection was completely drained and did not appear grossly infected so I did not place a drain. I suspect that the hematoma in the left anterior abdomen would be too viscous to be drained. Labs 03/22/24 09:03 03/19/24 21:23
[2024-03-23 20:00] VITALS: O2SAT 99
[2024-03-23 20:48] VITALS: BP 129/74; PULSE 97; RESP 14; TEMP 36.8; O2SAT 99
[2024-03-24] MEDS: CEPHALEXIN 500 MG CAPSULE PO (05:00)
[2024-03-24 05:19] VITALS: BP 120/61; PULSE 85; RESP 12; TEMP 36.6; O2SAT 99
--- NOTE | 2024-03-24 07:42 | PM.DS ---
DS: Admitting Diagnosis Discharge Date 03/24/2024 Admitting Diagnosis Postoperative hematoma DS: Discharge Diagnosis Discharge Diagnosis (1) Hematoma of rectus sheath: Code(s): S30.1XXA - Contusion of abdominal wall, initial encounter Status: Acute Assessment and Plan: No change on multiple imaging, patient comfortable, will continue to monitor. (2) UTI (urinary tract infection): Code(s): N39.0 - Urinary tract infection, site not specified Status: Acute Assessment and Plan: Continue cephalexin for full 10 day course. (3) Postoperative anemia: Code(s): D64.9 - Anemia, unspecified Status: Acute Assessment and Plan: Received iron infusion, will continue orally once diet is regular. DS: Summary Hospital Course Reason for hospitalization: Rectus sheath hematoma Hospital Course: 38-year-old female initially underwent robotic assisted hysterectomy on 03/11/2024, discharged home the following day without issue. Her hemoglobin had dropped from a pre surgical level, though she had had heavy bleed vaginal bleeding in the interim between the last blood count and postoperative blood count. Also she was having no bleeding no significant bruising and exam was benign therefore nothing further done to evaluate this anemia. Related some pressure and discomfort and vulvar bruising and was seen in the office on 03/17/2024, at which time significant perineal/vulvar bruising was noted, no hematoma was palpated, and abdominal trocar sites were without any ecchymosis. Reassurance was given at this time and she was to call for any significant changes in her symptomatology. Then presented to the emergency room on 03/20/2024 with increasing urinary symptoms of dysuria frequency urgency as well as pressure in the lower abdomen. Was found at that time to have a small collection of fluid in the cul-de-sac, as well as large rectus sheath hematoma. Was initiated on antibiotics for possible abscess as well as monitoring of left abdominal wall hematoma. Serial imaging showed no increasing and the hematoma and no active bleeding. Also CT guidance drainage of the cul-de-sac fluid revealed no abscess and fluid appeared normal. During this hospitalization she has continued with pressure and discomfort in the lower abdominal area where the hematoma cannot be palpated. The vulvar/perineal bruising has markedly improved. She will be discharged home today to follow up in 1 week. We will continue antibiotics for a full 10 day course. Specific instructions are discussed for which she should call back to the office if they occur, at this point she is comfortable and stable and ready to be discharged. She also has seen a steel erecting pusher in the past, and we will have her see them again to see if there are any further recommendations regarding any type of clotting abnormality which would lead her to be more prone to this type of complication postoperatively. Time Spent with Patient Time attestation: Total time spent providing and/or coordinating discharge services: DS: Data Data Completed and Pending Labs on day of discharge: Preliminary micro results at discharge 03/22/24 10:37 Anaerobic Culture - Preliminary Abscess 03/20/24 01:50 Blood Culture - Preliminary Blood 03/20/24 01:50 Blood Culture - Preliminary Blood Discharge Plan Discharge Discharging Clinician: Teo Blackmon Patient Disposition: Home, Self-Care Activity: may shower, no straining, no driving and pelvic rest Diet: as tolerated Patient Instructions: Antibiotic Form Stand Alone Forms: General Discharge Information Follow-up/Referrals: Teo Blackmon MD [Physician] - 1 Week Discharge Medications: New cephalexin 500 mg Capsule 500 mg PO Q6HR Qty: 28 0RF Continued magnesium oxide 400 mg (241.3 mg magnesium) tablet 400 tablet PO DAILY Victoza 2-Yo 0.6 mg/0.1 mL (18 mg/3 mL) pen injecto
== END 2024-03-24 08:45 | disposition home or self-care (01) | DRG 813 ==
LOC: ANHED 03-20 05:15 → ANH3MEDSUR 03-20 07:36
PROVIDERS: Emergency Medicine; Admitting Provider Obstetrics & Gynecology; Emergency Provider Emergency Medicine; PCP Family Medicine; Visit Provider Obstetrics & Gynecology
DX: M96.841 Postprocedural hematoma of a musculoskeletal structure following other procedure (principal); T81.43XA Infection following a procedure, organ and space surgical site, initial encounter; K65.1 Peritoneal abscess; D64.89 Other specified anemias; N39.0 Urinary tract infection, site not specified; D50.9 Iron deficiency anemia, unspecified; J45.909 Unspecified asthma, uncomplicated; E28.2 Polycystic ovarian syndrome; E78.00 Pure hypercholesterolemia, unspecified; F41.9 Anxiety disorder, unspecified; Z87.891 Personal history of nicotine dependence
CPT/HCPCS: 10160; 36415; 74174; 74176; 74177; 77012; 80053; 81001; 83690; 85025; 85027; 85049; 85610; 85730; 86850; 86900; 86901; 87040; 87070; 87075; 87086; 87205; 96361; 96365; 99285; A9270; J1756; J2405; J2543; J7050; J7120; J7121; Q9967

== ENCOUNTER 2024-06-23 12:13 | Outpatient (RCR) | payer OTHER, SELFPAY ==
--- NOTE | 2023-08-25 15:52 | PHAR ---
Feraheme (ferumoxytol) 510mg weekly times 2 doses, Injectafer (ferric carboxymaltose) 750mg iv weekly times 2 doses and Venofer (iron sucrose) 300mg daily times 3 doses are interchangeable per standing order. Venofer has been subbed for Feraheme due to insurance preference.
[2023-11-19 15:23] LABS: Hematocrit 29.6 % (37.0-47.0); Hemoglobin 8.5 g/dL (12.0-15.0); Mean Corpuscular HGB Conc 28.7 g/dl (32-36); Mean Corpuscular Hemoglobin 21.1 pg (26-34); Mean Corpuscular Volume 73.6 fl (80-100); Mean Platelet Volume 9.4 fl (7.4-10.4); Platelet Count Result 317 k/mm3 (150-375); Red Blood Count 4.02 M/mm3 (4.2-5.4); White Blood Count 5.5 K/mm3 (4.5-10.0)
[2023-11-19 16:36] LABS: Iron 18 ug/dL (37-170)
[2023-11-19 16:46] LABS: Percent Iron Saturation 4 % (20-50)
[2023-11-19 17:15] LABS: Ferritin 4.29 ng/mL (6.24-137)
[2023-12-08 10:05] VITALS: BP 132/77; PULSE 95; O2SAT 100
[2023-12-08] MEDS: diphenhydrAMINE HCl INJ 50 MG/ML VIAL 25 MG IV PUSH (10:18)
[2023-12-08] MEDS: ACETAMINOPHEN 325 MG TABLET 650 MG PO (10:18)
[2023-12-08] MEDS: IRON SUCROSE COMPLEX 300 MG in SODIUM CHLORIDE 0.9% IV 250 ML 176.667 MG IVPB (10:25)
[2023-12-08 12:26] VITALS: BP 121/73
[2023-12-09 10:05] VITALS: BP 116/65; PULSE 67; TEMP 36.5; O2SAT 100
[2023-12-09] MEDS: ACETAMINOPHEN 325 MG TABLET 650 MG PO (10:29)
[2023-12-09] MEDS: diphenhydrAMINE HCl INJ 50 MG/ML VIAL 25 MG IV PUSH (10:29)
[2023-12-09] MEDS: IRON SUCROSE COMPLEX 300 MG in SODIUM CHLORIDE 0.9% IV 250 ML 176.667 MG IVPB (10:40)
[2023-12-09 12:43] VITALS: BP 125/65; PULSE 68
[2023-12-10 11:07] VITALS: BP 119/67; PULSE 81; TEMP 36.9; O2SAT 100
[2023-12-10] MEDS: ACETAMINOPHEN 325 MG TABLET 650 MG PO (11:25)
[2023-12-10] MEDS: diphenhydrAMINE HCl INJ 50 MG/ML VIAL 25 MG IV PUSH (11:25)
[2023-12-10] MEDS: IRON SUCROSE COMPLEX 300 MG in SODIUM CHLORIDE 0.9% IV 250 ML 176.667 MG IVPB (11:36)
[2023-12-10 13:49] VITALS: BP 115/61
[2024-03-01 10:26] VITALS: BP 127/71; PULSE 74; TEMP 36.9; O2SAT 100
[2024-03-01] MEDS: ACETAMINOPHEN 325 MG TABLET 650 MG PO (10:49)
[2024-03-01] MEDS: diphenhydrAMINE HCl INJ 50 MG/ML VIAL 25 MG IV PUSH (10:49)
[2024-03-01] MEDS: IRON SUCROSE COMPLEX 300 MG in SODIUM CHLORIDE 0.9% IV 250 ML 176.667 MG IVPB (10:56)
[2024-03-01 12:57] VITALS: BP 116/62
[2024-03-08 10:48] VITALS: BP 118/63; PULSE 80; TEMP 36.8; O2SAT 100
[2024-03-08] MEDS: ACETAMINOPHEN 325 MG TABLET 650 MG PO (11:08)
[2024-03-08] MEDS: diphenhydrAMINE HCl INJ 50 MG/ML VIAL 25 MG IV PUSH (11:09)
[2024-03-08] MEDS: IRON SUCROSE COMPLEX 300 MG in SODIUM CHLORIDE 0.9% IV 250 ML 176.667 MG IVPB (11:28)
[2024-03-08 12:58] VITALS: BP 105/57
[2024-03-09 13:13] VITALS: BP 111/65; PULSE 79; TEMP 37.1; O2SAT 100
[2024-03-09] MEDS: ACETAMINOPHEN 325 MG TABLET 650 MG PO (13:31)
[2024-03-09] MEDS: diphenhydrAMINE HCl INJ 50 MG/ML VIAL 25 MG IV PUSH (13:32)
[2024-03-09] MEDS: IRON SUCROSE COMPLEX 300 MG in SODIUM CHLORIDE 0.9% IV 250 ML 176.667 MG IVPB (13:44)
[2024-03-09 15:42] VITALS: BP 117/64
[2024-06-23 12:22] LABS: Hematocrit 40.2 % (37.0-47.0); Hemoglobin 13.1 g/dL (12.0-15.0); Mean Corpuscular HGB Conc 32.6 g/dl (32-36); Mean Corpuscular Volume 89.1 fl (80-100); Platelet Count Result 181 k/mm3 (150-375); Red Blood Count 4.51 M/mm3 (4.2-5.4); Red Cell Distribution Width 13.9 % (11.5-14.5); White Blood Count 5.9 K/mm3 (4.5-10.0)
[2024-06-23 20:08] LABS: Iron 101 ug/dL (37-170)
[2024-06-23 20:17] LABS: Percent Iron Saturation 31 % (20-50)
[2024-06-23 22:52] LABS: Folic Acid 6.3 ng/mL (2.76->20)
== END 2024-06-25 14:40 ==
LOC: AMCINF 12:13
PROVIDERS: PCP Family Medicine; Visit Provider Internal Medicine Hematology & Oncology
DX: D50.9 Iron deficiency anemia, unspecified (principal); D51.3 Other dietary vitamin B12 deficiency anemia; N92.0 Excessive and frequent menstruation with regular cycle
CPT/HCPCS: 36415; 82607; 82728; 82746; 83540; 83550; 85027; 86850; 86900; 86901; 96365; 96366; 96375; A9270; J1200; J1756; J7050

== ENCOUNTER 2024-06-28 11:29 | Outpatient (CLI) | payer OTHER, SELFPAY ==
[2024-06-28 12:07] LABS: Hematocrit 41.1 % (37.0-47.0)
[2024-06-28 12:21] LABS: Alanine Aminotransferase 39 U/L (6-35); Albumin Level 4.3 g/dL (3.5-5.1); Alkaline Phosphatase 76 U/L (38-126); Anion Gap 8 mmol/L (4-12); Aspartate Amino Transferase 27 U/L (14-36); Bilirubin,Total 0.6 mg/dL (0.2-1.3); Blood Urea Nitrogen 14 mg/dL (7-17); Carbon Dioxide 27 mmol/L (22-30); Chloride 101 mmol/L (98-107); Estimated Glomerular Filt Rate > 60; Glucose 96 mg/dL (65-110); Potassium 3.8 mmol/L (3.4-5.0); Sodium 136 mmol/L (137-145)
[2024-06-28 15:37] LABS: Hemoglobin A1C 5.1 % (<5.7)
[2024-07-07 03:24] LABS: Estradiol, Ultrasensitive 79 pg/mL
== END 2024-06-28 11:30 | disposition home or self-care (01) ==
LOC: ANHLAB 11:30
PROVIDERS: PCP Family Medicine; Visit Provider Obstetrics & Gynecology
DX: R53.83 Other fatigue (principal); R45.86 Emotional lability; Z98.890 Other specified postprocedural states
CPT/HCPCS: 36415; 80053; 82670; 83001; 83036; 84439; 84443; 85014; 85018

== ENCOUNTER 2024-10-15 13:59 | Outpatient (CLI) | payer OTHER, SELFPAY ==
[2024-10-15 14:25] LABS: Basophils Absolute Auto 0.1 K/mm3 (0.0-0.1); Basophils Percent Auto 0.9 % (0.2-1.2); Eosinophils Absolute Auto 0.1 K/mm3 (0-0.3); Eosinophils Percent Auto 1.2 % (0-4.4); Hemoglobin 13.3 g/dL (12.0-15.0); Immature Granulocyte Absolute 0.01 K/mm3 (0.00-0.031); Immature Granulocyte Percent A 0.2 % (0-0.5); Lymphocytes Absolute Auto 1.75 K/mm3 (0.9-3.2); Lymphocytes Percent Auto 30.2 % (18.3-44.2); Mean Corpuscular HGB Conc 32.4 g/dl (32-36); Mean Corpuscular Hemoglobin 30.5 pg (26-34); Mean Platelet Volume 10.1 fl (7.4-10.4); Monocytes Absolute Auto 0.4 K/mm3 (0.1-0.6); Monocytes Percent Auto 7.4 % (2.6-8.5); Neutrophils Absolute Auto 3.5 K/mm3 (1.3-6.7); Neutrophils Percent Auto 60.1 % (45.5-73.1); Platelet Count Result 194 k/mm3 (150-375); Red Blood Count 4.36 M/mm3 (4.2-5.4); Red Cell Distribution Width 11.9 % (11.5-14.5); White Blood Count 5.8 K/mm3 (4.5-10.0)
[2024-10-15 14:35] LABS: Alanine Aminotransferase 30 U/L (6-35); Albumin Level 4.6 g/dL (3.5-5.1); Alkaline Phosphatase 73 U/L (38-126); Anion Gap 4 mmol/L (4-12); Aspartate Amino Transferase 30 U/L (14-36); Bilirubin,Total 0.5 mg/dL (0.2-1.3); Blood Urea Nitrogen 18 mg/dL (7-17); Calcium 8.7 mg/dL (8.4-10.2); Carbon Dioxide 28 mmol/L (22-30); Chloride 103 mmol/L (98-107); Estimated Glomerular Filt Rate > 60; Glucose 94 mg/dL (65-110); Sodium 135 mmol/L (137-145)
[2024-10-15 14:49] LABS: Iron 89 ug/dL (37-170)
[2024-10-15 15:02] LABS: Percent Iron Saturation 25 % (20-50)
[2024-10-15 15:41] LABS: Folic Acid 15.5 ng/mL (2.76->20)
[2024-10-16 09:49] LABS: Triiodothyronine T3 Free 3.6 pg/mL (2.3-4.2)
== END 2024-10-15 14:00 | disposition home or self-care (01) ==
PROVIDERS: PCP Family Medicine; Referring Provider Internal Medicine Hematology & Oncology; Visit Provider Obstetrics & Gynecology
DX: D64.9 Anemia, unspecified (principal); R63.5 Abnormal weight gain
CPT/HCPCS: 36415; 80053; 82607; 82728; 82746; 83540; 83550; 84439; 84443; 84481; 85025

== ENCOUNTER 2024-11-22 16:08 | Emergency (ER) | payer OTHER, MEDICAID, SELFPAY ==
--- NOTE | ~2024-11-22 | XR_ITS ---
XR forearm LT 2V Ordering provider: Cuca Zazueta APRN History: . FELL 2 DAYS AGO. PAIN BRUISING LEFT FOREARM . Comparison: None. FINDINGS: BONES: No acute fracture or dislocation. JOINT SPACES: Normal. SOFT TISSUES: Normal. IMPRESSION: No acute osseous abnormality left forearm. Reviewed, dictated and finalized at location A. PROJECT
--- NOTE | ~2024-11-22 | XR_ITS ---
XR humerus LT Ordering provider: Cuca Zazueta APRN History: . FELL 2 DAYS AGO. PAIN LEFT HUMERUS . Comparison: None. FINDINGS: BONES: No acute fracture or dislocation. JOINT SPACES: Normal. SOFT TISSUES: Normal. IMPRESSION: No acute osseous abnormality left humerus. Reviewed, dictated and finalized at location A. NESS SUPPORT LIAISON
--- NOTE | 2024-11-22 16:12 | ED_ITS ---
HPI - Fall General Chief Complaint: Extremity Injury, Upper Stated Complaint: FALL Time Seen by Provider: 11/22/24 16:11 Source: patient Mode of arrival: ambulatory Limitations: no limitations History of Present Illness HPI Narrative: Patient is a 38-year-old female who presents with left arm pain after falling on the ice on Friday. Patient reports pain to posterior upper arm and medial forearm. Patient has bruising to forearm. Denies any weakness to extremity. Patient does report some tingling/pins and needle feeling in hand. Patient still has full range of motion. Patient has been taking Tylenol and ibuprofen. Related Data Home Medications ?Medication ?Instructions ?Recorded ?Confirmed ?Last Taken ?Type albuterol sulfate 90 mcg/actuation 2 puff inhalation Q4HWA PRN 02/07/23 10/11/24 Unknown History aerosol inhaler Shortness Of Breath Allergies Allergy/AdvReac Type Severity Reaction Status Date / Time Sulfa (Sulfonamide Allergy Unknown Hives Verified 11/22/24 16:15 Antibiotics) hydrocodone AdvReac Unknown N/V/DIZZINE Verified 11/22/24 16:15 SS Review of Systems Review of Systems: All systems reviewed & are unremarkable except as noted in HPI and below Constitutional: Constitutional: Denies body ache(s), Denies chills, Denies fatigue, Denies fever(s), Denies headache(s), Denies malaise and Denies weakness Eyes: Eyes: Denies blurry vision, Denies irritation and Denies loss of vision ENT: Denies otalgia, Denies headache(s), Denies nasal discharge, Denies sinus pain and Denies sore throat Cardiovascular: Cardiovascular: Denies chest pain, Denies irregular heart rhythm and Denies dyspnea Respiratory: Respiratory: Denies dyspnea Gastrointestinal: Gastrointestinal: Denies abdominal pain, Denies melena, Denies hematochezia, Denies diarrhea, Denies nausea and Denies vomiting Musculoskeletal: Musculoskeletal: Denies back pain, Denies myalgias and Reports arthralgias Integumentary/Breasts: Skin/Breast: Denies pruritus and Denies rash Neurologic: Denies headache(s), Denies loss of vision and Denies weakness Psychiatric: Psychiatric: Reports no additional psychiatric complaints Endocrine: Endocrine: Denies fatigue PMFSH Past Medical History Medical History Screening mammogram, encounter for Palpitations Obesity (BMI 35.0-39.9 without comorbidity) Iron deficiency anemia Breast pain HPV in female Anxiety Herpes PCOS (polycystic ovarian syndrome) Asthma Hypercholesteremia Surgical History Surgical History History of robot-assisted laparoscopic hysterectomy (03/11/24) Robotic assisted total laparoscopic hysterectomy with bilateral salpingectomy History of gynecological procedure (02/09/24) EMB Normal colonoscopy (~2015) Hx of tubal ligation (~2008) Family History Family History Father , At age 49 due to multiple complications of type 1 diabetes Hypertension Cerebrovascular accident Acute myocardial infarction Type 1 diabetes Multi-infarct dementia Chronic kidney disease Grandparent Heart disease maternal grandfather paternal grandfather Hodgkin lymphoma maternal grandmother Breast cancer maternal grandmother Mother Hypothyroidism Hypertension Daughter POTS (postural orthostatic tachycardia syndrome) Social History Social History Social History: The patient lives at home with her and 3 children. She used to smoke half a pack of cigarettes per day for between 8-10 years but quit smoking when her youngest child was warm. She rarely use his THC in order to try to help her sleep due to her restless leg symptoms associated with her anemia. She rarely drinks alcohol and only in small amounts. Code status: Full code Surrogate decision maker: Smoking packs per day: 0.5 Smoking cigarettes per day: 10.0 Years smoked: 12 Smoking pack-years: 6.00 Smoking status: Former smoker Tobacco type: cigarettes Second hand tobacco smoke exposure: No Smoking end date: 11/10/12 Alcohol intake: current Drinks per week: 1 Alcohol use details: HOLIDAYS Substance use: current Substance use type: marijuana Other substance usage details: FOR SLEEP Last use: 07/11/2022 Do You Feel Safe in your Home?: Yes Lack of Transportation: No Lack of Food: Never True Current Housing: I Have Housing Concerned About Future Housing: No Difficulty Paying Gas/Electric Bills: No Difficulty Paying for Meds: No Currently Unemployed: No Education: Associate Degree Difficulty w/ Childcare or Family Care: No Living arrangements: with family Additional living arrangements comments: Occupation/Education: occupation 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 There is no relevant family history pertinent to the presenting complaint. Exam Const: General: cooperative, healthy appearing, comfortable, no acute distress and well nourished Nutritional Appearance: well nourished Orientation/consciousness: patient oriented x3 Limitations: no limitations HENMT: Head: normal to inspection, normocephalic and atraumatic Ears: hearing grossly normal bilaterally and external ears normal Face/Nose/Sinus: Normal external nose present, normal facial exam and face symmetric Face and sinus: normal facial exam and face symmetric Mouth: Yes lip normal Eyes: General: appearance normal, both eyes and all related structures Alignment and Position: alignment normal and position normal Periorbital: periorbital findings normal Eyelids: eyelids normal Pupils: Equal, round and reactive pupils present EOM: EOMs intact bilaterally Neck: Neck: normal visual inspection, full ROM and supple Chest: Chest palpation & inspection: normal inspection of the chest Resp: Effort & Inspection: normal respiratory effort and able to speak in complete sentences Auscultation: clear to auscultation bilaterally Cardio: Rate: regular rate Rhythm: regular rhythm Heart sounds: S1 normal heart sound present and S2 normal heart sound present GI: Inspection: normal to inspection Skin: General skin exam: normal color and no rashes or lesions noted Neuro: General: patient oriented x3 and moves all extremities Cranial nerves: Yes Equal, round and reactive pupils present Speech: normal speech Gait exam (Neuro): Normal gait present Extrem: General: normal to inspection, full ROM and no edema Left upper extremity: full ROM, normal capillary refill, shoulder/upper arm tenderness of the mid-shaft humerus and normal ROM; no swelling, no ecchymosis, no deformity and no unsual warmth, elbow/forearm tenderness of the mid-shaft forearm, normal ROM, ecchymosis forearm mid posterior single and distal pulses intact; no deformity and wrist normal to inspection, normal ROM, normal vascular exam and radial pulse present; no tenderness and no swelling Psych: Appearance: grossly normal and well kempt Mental Status: mental status grossly normal Speech and movement: Normal speech and movement present Affect: normal affect Attitude: cooperative Thought process: Normal thought process present Course Course Emergency Course: Patient is aware of diagnosis, understands and agrees to treatment plan. Anticipatory guidance given. Patient agrees to follow-up as directed and is aware of reasons to seek care at the emergency department. Portions of this record may have been created with voice recognition software Level of Care: Express Care Visit Vital Signs Vital signs: Reviewed MDM - Fall MDM Narrative Medical decision making narrative: Pt well hydrated appearing, in no respiratory distress, hemodynamically stable. Recommend supportive care. The patient is stable at time of discharge the clinical impression was discussed and the patient was given the opportunity to ask questions, which were addressed as completely as possible given the information available at present. Anticipatory guidance and return to care precautions were discussed and the importance of primary care follow-up was stressed and encouraged. The patient voiced understanding of the plan, indications to return, and the need for follow-up. Exam findings show no acute concerns or changes Patient is appropriate for outpatient treatment and follow-up. Differential Diagnosis Differential diagnosis: Likely dislocation of shoulder region, fracture of wrist and other (Humerus fracture, forearm fracture, cervical radiculopathy, contusion) Medical Records Attestation: I reviewed the patient's medical records. Imaging Data Radiologist's impression: XR forearm LT 2V Ordering provider: Cuca Zazueta APRN History: . FELL 2 DAYS AGO. PAIN BRUISING LEFT FOREARM . Comparison: None. FINDINGS: BONES: No acute fracture or dislocation. JOINT SPACES: Normal. SOFT TISSUES: Normal. IMPRESSION: No acute osseous abnormality left forearm. XR humerus LT Ordering provider: Cuca Zazueta APRN History: . FELL 2 DAYS AGO. PAIN LEFT HUMERUS . Comparison: None. FINDINGS: BONES: No acute fracture or dislocation. JOINT SPACES: Normal. SOFT TISSUES: Normal. IMPRESSION: No acute osseous abnormality left humerus. Discharge Plan Discharge Clinical Impression: Fall, Cervical radiculopathy, Contusion Patient Disposition: Home, Self-Care Condition: Stable Instructions: Cervical Radiculopathy (ED) Additional Instructions: Xray showed no fracture. Take steroids in the morning with food. Take muscle relaxers as needed, primarily at night because they can cause drowsiness. Minimize activities that aggravate the condition The RICE protocol. Follow the RICE protocol as soon as possible after your injury:. Ice should be immediately applied to keep the swelling down. It can be used for 20 to 30 minutes, three or four times daily. Do not apply ice directly to your skin. Elevate your arm above the level of your heart as often as possible during the first 48 hours. Medication: Nonsteroidal anti-inflammatory drugs (NSAIDs) such as ibuprofen and naproxen can help control pain and swelling. Because they improve function by both reducing swelling and controlling pain, they are a better option for mild sprains than narcotic pain medicines. Do not take with Prednisone Please schedule a follow-up visit with your personal physician for further evaluation and treatment within 1week OR If your symptoms persist, change or worsen significantly before you can contact your personal physician then please, without delay, go to the emergency department for further evaluation. Your blood pressure was elevated above 120/80 today at Urgent Care. This puts you above the threshold for follow up visit with a primary care provider. High blood pressure does not usually cause any symptoms, however it may lead to kidney failure, stroke, heart disease just to name a few if untreated . Many people are anxious when seeing a provider or nurse. As a result, you are not diagnosed with hypertension at this time unless your blood pressure is persistently high at two office visits at least one week apart. Some things that can help lower blood pressure are lifestyle modifications, such as light exercise, decreased salt in diet, and weight loss. It is important to follow up with a PCP about this within 1 week. Patient Language: Arabic Prescriptions: New prednisone 20 mg tablet 40 mg PO DAILY 5 Days Qty: 10 0RF baclofen 10 mg tablet 10 mg PO BID Qty: 10 0RF No Action tolterodine [Detrol LA] 4 mg capsule,extended release 24hr 4 mg PO DAILY Qty: 90 3RF albuterol sulfate 90 mcg/actuation HFA aerosol inhaler 2 puff INHALATION Q4HWA PRN (Reason: Shortness Of Breath) Follow-up/Referrals: Brandi Babin MD [Primary Care Provider] - 3 Days Stand Alone Forms: Work/School Release IP Time of Disposition: 16:53
[2024-11-22 16:17] VITALS: BP 150/84; PULSE 83; RESP 16; TEMP 36.7; O2SAT 100
== END 2024-11-22 16:55 | disposition home or self-care (01) ==
PROVIDERS: Emergency Provider Nurse Practitioner Family; PCP Family Medicine
DX: M54.12 Radiculopathy, cervical region (principal); S50.12XA Contusion of left forearm, initial encounter; W00.9XXA Unspecified fall due to ice and snow, initial encounter; E28.2 Polycystic ovarian syndrome; J45.909 Unspecified asthma, uncomplicated; E78.00 Pure hypercholesterolemia, unspecified; Z87.891 Personal history of nicotine dependence
CPT/HCPCS: 73060; 73090; 99213; G0463

== ENCOUNTER 2025-09-16 17:19 | Emergency (ER) | payer OTHER, SELFPAY ==
--- NOTE | ~2025-09-16 | CT_ITS ---
EXAMINATION: CT abdomen pelvis w con DATE: 09/17/2025 02:14 INDICATION: Abdominal pain. TECHNIQUE: Computed tomography (CT) of the abdomen and pelvis was performed with 100 mL Omnipaque 350 intravenous contrast. Automated exposure control and iterative reconstruction technique were employed. The dose-length product was 741.70 mGy-cm. COMPARISON: CT abdomen and pelvis 03/21/2024 FINDINGS: The visualized portions of lung bases are clear without pneumonia or pleural effusion. The heart size is normal. No pericardial effusion. The liver, gallbladder, spleen, pancreas, adrenal glands, and kidneys are normal. There are no dilated loops of bowel. The appendix is normal. There are no pathologically enlarged lymph nodes. There is no free intraperitoneal fluid. There is mild lumbar spondylosis and moderate thoracic spondylosis. There is mild chronic anterior wedging of multiple thoracic vertebral bodies. IMPRESSION: 1. No etiology for the patient's symptoms. Reviewed, dictated and finalized at location E. T DISPATCH MANAGER
--- OUTSIDE RECORDS SUMMARY | 2025-09-16 17:22 | XMS_ITS | Data Portability ---
Author Organization [facility] Address [address] [place] [address] Assessment No assessment recorded. Plan of Treatment Reminders Order Date Submit Date Provider Last Modified By Organization Details Last Modified Time Details Appointments None matthew flanagan Lab urinaly sis, dipstic k 2021 022 [email or web address] [facility], [address], [place], [address], 17:00:29 culture , urine 2021 022 TICO [facility], [address], [place], [address], 14:09:07 pregnan cy test, urine 2021 022 [email or web address] In-Office Order, Internal Use Only DO Not Attach Compendium DO Not Attach Compendium, Do Not Delete/merge, 10:34:49 urinaly sis, dipstic k 2021 022 [email or web address] In-Office Order, Internal Use Only DO Not Attach Compendium DO Not Attach Compendium, Do Not Delete/merge, 17:35:42 HbA1c (hemogl obin A1c), blood 2020 021 [email or web address] In-Office Order, Internal Use Only DO Not Attach Compendium DO Not Attach Compendium, Do Not Delete/merge, 13:34:37 CBC w/ auto diff 2020 021 [place] [facility], [address], [place], [address], 07:10:54 CMP, serum or plasma 2020 021 [place] [facility], [address], [place], [address], 12:11:20 lipid panel, serum 2020 021 [facility] [facility], [address], [place], [address], 12:11:21 CBC w/ auto diff 2020 021 [place] [facility], [address], [place], [address], 12:11:19 ferriti n, serum or plasma 2020 021 [place] [facility], [address], [place], [address], 12:11:23 iron + total iron-bi nding capacit y (TIBC), serum 2020 021 [facility], [address], [place], [address], 12:11:22 TSH, ultra-s ensitiv e, serum 2020 021 [place] [facility], [address], [place], [address], 12:11:23 Referral physica l therapi st referra l 2021 022 [email or web address] [facility], [address], [place], [address], 2 14:39:52 cardiol ogist referra l 2021 022 [facility], [address] [facility], [address], [place], [address], 3 17:58:31 dermato logist referra l 2020 021 [email or web address] Mega Ferrera MD ([facility], Dermatology), [address], [place], [address], 2 16:02:11 Procedures None recorde d. Surgeries None recorde d. Imaging XR, kidney + ureter + bladder - Evaluat ion of kidney stone 2021 [facility] Scheduling, [facility], [place], [address], 2 22:31:56 electro cardiog noé 2021 022 [email or web address] In-Office Order, Internal Use Only DO Not Attach Compendium DO Not Attach Compendium, Do Not Delete/merge, [id number] 2 17:35:42 US, echocar diogram , transth oracic, complet e 2020 [facility] Scheduling, [facility], [place], [address], 1 16:31:06 XR, chest, 2 view - Dyspnea 2020 [facility] Scheduling, [facility], [place], [address], 1 21:37:16 Medication Orders Victoza 3-Yo 0.6 mg/0.1 mL (18 mg/3 mL) subcuta neous pen injecto r 2020 [facility], [address] [place] [address], [id number], 09:52:23 Slow Release Iron 160 mg (50 mg iron) tablet, extende d release 2020 [facility], [address] [place] [address], [id number], 13:34:43 famotid ine 20 mg tablet 2020 [email or web address] [facility], [address] [place] [address], [id number], 22:32:51 Patient TargetsNo targets recorded. Patient Instructions Encounter Date Encounter Id Patient Instructions Last Modified By Organization Details Last Modified Time 07/09/2021 [id number] I was present and available in the family medicine clinic to discuss the patient's care during the appointment. I agree with the resident's assessment and plan as documented. HL [email or web address] Not available 07/09/2021 22:34:02 07/17/2021 [id number] I was present and available in the Family Medicine clinic to discuss this patient's care for the duration of the appointment. I agree with the resident's assessment and plan as documented with the following addendum: None. Dr. Karel Sandra MD Attending Physician, [facility]. [email or web address] Not available 07/19/2021 10:30:25 09/13/2021 [id number] A healthy lifestyle: care instructions Not available 09/13/2021 09:52:16 I certify that I was present and available for case discussion in the Family Medicine preceptor room at the time of this encounter. I have reviewed the note and agree with the findings, assessment, and plan. Follow up as listed. All labs/imaging/con sults to be followed by the ordering provider. [email or web address] Not available 09/14/2021 12:02:20 11/20/2021 [id number] low back pain: exercises Not available 11/20/2021 10:40:37 I was present and available in the family medicine clinic to discuss the patient's care during the appointment. I agree with the resident's assessment and plan as documented. Manish Ma [email or web address] Not available 11/26/2021 16:24:42 06/24/2022 [id number] I was present and available in the family medicine clinic to discuss the patient's care during the appointment and the case was discussed with me. I agree with the resident's assessment and plan as documented. HL [email or web address] Not available 06/28/2022 09:00:22 Reason for Referral Hematology Nurse Referral for P ilar cyst of scalp At least 5 pilar cysts that patient desires to have excised. Referring Physician: Adalberto Sage [employer] Gl[employer] Operator, Encounter Date: 09/13/2021 Compliance And Control Analyst Referral for In termittent palpitations Cardiac palpitations suspected to be PVCs vs other arrhythmia. Referring Physician: [facility], Encounter Date: 11/20/2021 Physical Therapist Referral for Chronic low back pain Referring Physician: Sunny Aparicio [employer] Gl[employer] Operator, Encounter Date: 06/24/2022 Results Created Date Observation Date Name Description Value Unit Range Abnormal Flag Note LastModifiedBy Organization Detail LastModifiedTime 07/17/20 21 07/17/2021 HbA1c (hemo globi n A1c), blood HbA1c 5.3 Not Available In-Office Order Internal Use Only DO Not Attach Compendium DO Not Attach Compendium, Do Not Delete/merge, [id number] 07/17/2021 11:58:59 07/09/20 21 07/10/2021 CBC WITH DIFFE RENTI AL/PL ATELE T WBC 7.1 x10e3 /uL 3.4-10 .8 Not Available [facility] ([facility]) [address] [facility], [place], [address], 07/10/2021 12:11:19 07/09/20 21 07/10/2021 CBC WITH DIFFE RENTI AL/PL ATELE T RBC 4.62 x10e6 /uL 3.77-5 .28 Not Available [facility] ([facility]) [address] [place], [address], 07/10/2021 12:11:19 07/09/20 21 07/10/2021 CBC WITH DIFFE RENTI AL/PL ATELE T hemoglobin 8.3 g/dL 11.1-1 5.9 below low normal Not Available [facility] ([facility]) [address] [place], [address], 07/10/2021 12:11:19 07/09/2007/10/2021 CBC WITH DIFFE RENTI AL/PL ATELE T hematocrit 30.8 % 34.0-4 6.6 below low normal Not Available [facility] ([facility]) [address] [place], [address], 07/10/2021 12:11:19 07/09/20 21 07/10/2021 CBC WITH DIFFE RENTI AL/PL ATELE T MCV 67 fL 79-97 below low normal Not Available [facility] ([facility]) [address] [place], [address], 07/10/2021 12:11:19 07/09/20 21 07/10/2021 CBC WITH DIFFE RENTI AL/PL ATELE T MCH 18.0 pg 26.6-3 3.0 below low normal Not Available [facility] ([facility]) [address] [place], [address], 07/10/2021 12:11:19 07/09/2007/10/2021 CBC WITH DIFFE RENTI AL/PL ATELE T MCHC 26.9 g/dL 31.5-3 5.7 below low normal Not Available [facility] ([facility]) [address] [place], [address], 07/10/2021 12:11:19 07/09/20 21 07/10/2021 CBC WITH DIFFE RENTI AL/PL ATELE T RDW 17.9 % 11.7-1 5.4 above high normal Not Available [facility] ([facility]) [address] [facility], [place], [address], 07/10/2021 12:11:19 07/09/20 21 07/10/2021 CBC WITH DIFFE RENTI AL/PL ATELE T platelets 383 x10e3 /uL 150-45 0 Not Available [facility] ([facility]) [address] [facility], [place], [address], 07/10/2021 12:11:19 07/09/2007/10/2021 CBC WITH DIFFE RENTI AL/PL ATELE T neutrophils 64 % not estab. Not Available [facility] ([facility]) [address] [facility], [place], [address], 07/10/2021 12:11:19 07/09/20 21 07/10/2021 CBC WITH DIFFE RENTI AL/PL ATELE T lymphs 26 % not estab. Not Available [facility] ([facility]) [address] [facility], [place], [address], 07/10/2021 12:11:19 07/09/20 21 07/10/2021 CBC WITH DIFFE RENTI AL/PL ATELE T monocytes 8 % not estab. Not Available [facility] ([facility]) [address] [facility], [place], [address], 07/10/2021 12:11:19 07/09/20 21 07/10/2021 CBC WITH DIFFE RENTI AL/PL ATELE T eos 1 % not estab. Not Available [facility] ([facility]) [address] [facility], [place], [address], 07/10/2021 12:11:19 07/09/20 21 07/10/2021 CBC WITH DIFFE RENTI AL/PL ATELE T basos 1 % not estab. Not Available [facility] ([facility]) [address] [facility], [place], [address], 07/10/2021 12:11:19 07/09/20 21 07/10/2021 CBC WITH DIFFE RENTI AL/PL ATELE T immature cells [employer] OFFICER Not Available [facility] ([facility]) [address] [facility], [place], [address], 07/10/2021 12:11:19 07/09/20 21 07/10/2021 CBC WITH DIFFE RENTI AL/PL ATELE T neutrophils (absolute) 4.5 x10e3 /uL 1.4-7. 0 Not Available [facility] ([facility]) [address] [facility], [place], [address], 07/10/2021 12:11:19 07/09/20 21 07/10/2021 CBC WITH DIFFE RENTI AL/PL ATELE T lymphs (absolute) 1.9 x10e3 /uL 0.7-3. 1 Not Available [facility] ([facility]) [address] [place], [address], 07/10/2021 12:11:19 07/09/20 21 07/10/2021 CBC WITH DIFFE RENTI AL/PL ATELE T monocytes(ab solute) 0.6 x10e3 /uL 0.1-0. 9 Not Available [facility] ([facility]) [address] [place], [address], 07/10/2021 12:11:19 07/09/20 21 07/10/2021 CBC WITH DIFFE RENTI AL/PL ATELE T eos (absolute) 0.1 x10e3 /uL 0.0-0. 4 Not Available [facility] ([facility]) [address] [place], [address], 07/10/2021 12:11:19 07/09/20 21 07/10/2021 CBC WITH DIFFE RENTI AL/PL ATELE T baso (absolute) 0.1 x10e3 /uL 0.0-0. 2 Not Available [facility] ([facility]) [address] [facility], [place], [address], 07/10/2021 12:11:19 07/09/20 21 07/10/2021 CBC WITH DIFFE RENTI AL/PL ATELE T immature granulocytes 0 % not estab. Not Available [facility] ([facility]) [address] [facility], [place], [address], 07/10/2021 12:11:19 07/09/20 21 07/10/2021 CBC WITH DIFFE RENTI AL/PL ATELE T immature grans (abs) 0.0 x10e3 /uL 0.0-0. 1 Not Available [facility] ([facility]) [address] [facility], [place], [address], 07/10/2021 12:11:19 07/09/20 21 07/10/2021 CBC WITH DIFFE RENTI AL/PL ATELE T NRBC [employer] OFFICER Not Available [facility] ([facility]) [address] [facility], [place], [address], 07/10/2021 12:11:19 07/09/20 21 07/10/2021 CBC WITH DIFFE RENTI AL/PL ATELE T hematology comments: [employer]S OFFICER Not Available [facility] ([facility]) [address] [facility], [place], [address], 07/10/2021 12:11:19 07/09/20 21 07/10/2021 COMP. METAB OLIC PANEL (14) glucose 82 mg/dL 65-99 Not Available [facility] ([facility]) [address] [place], [address], 07/10/2021 12:11:20 07/09/20 21 07/10/2021 COMP. METAB OLIC PANEL (14) BUN 11 mg/dL 6-20 Not Available [facility] ([facility]) [address] [place], [address], 07/10/2021 12:11:20 07/09/20 21 07/10/2021 COMP. METAB OLIC PANEL (14) creatinine 0.55 mg/dL 0.57-1 .00 below low normal Not Available [facility] ([facility]) [address] [facility], [place], [address], 07/10/2021 12:11:20 07/09/20 21 07/10/2021 COMP. METAB OLIC PANEL (14) eGFR if nonafricn AM 120 mL/mi n/1.7 3 >59 Not Available [facility] ([facility]) [address] [facility], [place], [address], 07/10/2021 12:11:20 07/09/20 21 07/10/2021 COMP. METAB OLIC PANEL (14) eGFR if africn AM 139 mL/mi n/1.7 3 >59 Lab en[facility] curre ntly repor ts eGFR in compl iance with the curre nt recom menda tions of the [employer] n[employer] [facility] [employer] ation . [facility] will updat e repor ting as new guide lines are publi shed from the NKF-A SN Task force . Not Available [facility] ([facility]) [address] [facility], [place], [address], 07/10/2021 12:11:20 07/09/20 21 07/10/2021 COMP. METAB OLIC PANEL (14) BUN/creatini ne ratio 20 9-23 Not Available [facility] ([facility]) [address] [facility], [place], [address], 07/10/2021 12:11:20 07/09/20 21 07/10/2021 COMP. METAB OLIC PANEL (14) sodium 138 mmol/ L 134-14 4 Not Available [facility] ([facility]) [address] [facility] [place], [address], 07/10/2021 12:11:20 07/09/20 21 07/10/2021 COMP. METAB OLIC PANEL (14) potassium 4.8 mmol/ L 3.5-5. 2 Not Available [facility] ([facility]) [address] [facility] [place], [address], 07/10/2021 12:11:20 07/09/20 21 07/10/2021 COMP. METAB OLIC PANEL (14) chloride 101 mmol/ L 96-106 Not Available [facility] ([facility]) [address] [facility], [place], [address], 07/10/2021 12:11:20 07/09/20 21 07/10/2021 COMP. METAB OLIC PANEL (14) carbon dioxide, total 20 mmol/ L 20-29 Not Available [facility] ([facility]) [address] [facility], [place], [address], 07/10/2021 12:11:20 07/09/20 21 07/10/2021 COMP. METAB OLIC PANEL (14) calcium 9.0 mg/dL 8.7-10 .2 Not Available [facility] ([facility]) [address] [place], [address], 07/10/2021 12:11:20 07/09/20 21 07/10/2021 COMP. METAB OLIC PANEL (14) protein, total 8.0 g/dL 6.0-8. 5 Not Available [facility] ([facility]) [address] [place], [address], 07/10/2021 12:11:20 07/09/20 21 07/10/2021 COMP. METAB OLIC PANEL (14) albumin 4.6 g/dL 3.8-4. 8 Not Available [facility] ([facility]) [address] [place], [address], 07/10/2021 12:11:20 07/09/20 21 07/10/2021 COMP. METAB OLIC PANEL (14) globulin, total 3.4 g/dL 1.5-4. 5 Not Available [facility] ([facility]) [address] [facility] [place], [address], 07/10/2021 12:11:20 07/09/20 21 07/10/2021 COMP. METAB OLIC PANEL (14) A/G ratio 1.4 1.2-2. 2 Not Available [facility] ([facility]) [address] [facility] [place], [address], 07/10/2021 12:11:20 07/09/20 21 07/10/2021 COMP. METAB OLIC PANEL (14) bilirubin, total 0.2 mg/dL 0.0-1. 2 Not Available [facility] ([facility]) [address] [facility] [place], [address], 07/10/2021 12:11:20 07/09/20 21 07/10/2021 COMP. METAB OLIC PANEL (14) alkaline phosphatase 86 IU/L 48-121 Not Available [facility]) [address] [facility] [place], [address], 07/10/2021 12:11:20 07/09/20 21 07/10/2021 COMP. METAB OLIC PANEL (14) AST (SGOT) 21 IU/L 0-40 Not Available [facility] ([facility]) [address] [facility] [place], [address], 07/10/2021 12:11:20 07/09/20 21 07/10/2021 COMP. METAB OLIC PANEL (14) ALT (SGPT) 17 IU/L 0-32 Not Available [facility] ([facility]) [address] [facility] [place], [address], 07/10/2021 12:11:20 07/09/20 21 07/10/2021 LIPID PANEL cholesterol, total 202 mg/dL 100-19 9 above high normal Not Available [facility] ([facility]) [address] [facility] [place], [address], 07/10/2021 12:11:21 07/09/20 21 07/10/2021 LIPID PANEL triglyceride s 81 mg/dL 0-149 Not Available [facility] ([facility]) [address] [facility] [place], [address], 07/10/2021 12:11:21 07/09/20 21 07/10/2021 LIPID PANEL HDL cholesterol 63 mg/dL >39 Not Available [facility]) [address] [facility] [place], [address], 07/10/2021 12:11:21 07/09/20 21 07/10/2021 LIPID PANEL VLDL cholesterol sherice 15 mg/dL 5-40 Not Available [facility] ([facility]) [address] [place], [address], 07/10/2021 12:11:21 07/09/20 21 07/10/2021 LIPID PANEL LDL chol calc ([facility]) 124 mg/dL 0-99 above high normal Not Available [facility] ([facility]) [address] [facility] [place], [address], 07/10/2021 12:11:21 07/09/20 21 07/10/2021 LIPID PANEL comment: [employer] OFFICER Not Available [facility] ([facility]) [address] [place], [address], 07/10/2021 12:11:21 07/09/20 21 07/10/2021 IRON AND TIBC iron bind.cap.(TI BC) 508 ug/dL 250-45 0 above high normal Not Available [facility] ([facility]) [address] [place], [address], 07/10/2021 12:11:22 07/09/20 21 07/10/2021 IRON AND TIBC UIBC 489 ug/dL 131-42 5 above high normal Not Available [facility] ([facility]) [address] [place], [address], 07/10/2021 12:11:22 07/09/20 21 07/10/2021 IRON AND TIBC iron 19 ug/dL 27-159 below low normal Not Available [facility] ([facility]) [address] [place], [address], 07/10/2021 12:11:22 07/09/20 21 07/10/2021 IRON AND TIBC iron saturation 4 % 15-55 alert low Not Available [facility] ([facility]) [address] [place], [address], 07/10/2021 12:11:22 07/09/20 21 07/10/2021 TSH RFX ON ABNOR MAL TO FREE T4 TSH 3.590 uIU/m L 0.450- 4.500 Not Available [facility] ([facility]) [address] [place], [address], 07/10/2021 12:11:23 07/09/20 21 07/10/2021 NUZHAT TIN ferritin 3 NG/mL 15-150 below low normal Not Available [facility] ([facility]) [address] [place], [address], 07/10/2021 12:11:23 09/10/20 21 09/11/2021 CBC WITH DIFFE RENTI AL/PL ATELE T WBC 6.0 x10e3 /uL 3.4-10 .8 Not Available [facility] ([facility]) [address] [place], [address], 09/11/2021 07:10:54 09/10/20 21 09/11/2021 CBC WITH DIFFE RENTI AL/PL ATELE T RBC 4.10 x10e6 /uL 3.77-5 .28 Not Available [facility] ([facility]) [address] [place], [address], 09/11/2021 07:10:54 09/10/20 21 09/11/2021 CBC WITH DIFFE RENTI AL/PL ATELE T hemoglobin 9.9 g/dL 11.1-1 5.9 below low normal Not Available [facility] ([facility]) [address] [place], [address], 09/11/2021 07:10:54 09/10/20 21 09/11/2021 CBC WITH DIFFE RENTI AL/PL ATELE T hematocrit 31.3 % 34.0-4 6.6 below low normal Not Available [facility] ([facility]) [address] [place], [address], 09/11/2021 07:10:54 09/10/20 21 09/11/2021 CBC WITH DIFFE RENTI AL/PL ATELE T MCV 76 fL 79-97 below low normal Not Available [facility] ([facility]) [address] [place], [address], 09/11/2021 07:10:54 09/10/20 21 09/11/2021 CBC WITH DIFFE RENTI AL/PL ATELE T MCH 24.1 pg 26.6-3 3.0 below low normal Not Available [facility] ([facility]) [address] [place], [address], 09/11/2021 07:10:54 09/10/20 21 09/11/2021 CBC WITH DIFFE RENTI AL/PL ATELE T MCHC 31.6 g/dL 31.5-3 5.7 Not Available [facility] ([facility]) [address] [place], [address], 09/11/2021 07:10:54 09/10/20 21 09/11/2021 CBC WITH DIFFE RENTI AL/PL ATELE T RDW [employer] OFFICER Not Available [facility] ([facility]) [address] [place], [address], 09/11/2021 07:10:54 09/10/20 21 09/11/2021 CBC WITH DIFFE RENTI AL/PL ATELE T platelets 253 x10e3 /uL 150-45 0 Not Available [facility] ([facility]) [address] [facility], [place], [address], 09/11/2021 07:10:54 09/10/20 21 09/11/2021 CBC WITH DIFFE RENTI AL/PL ATELE T neutrophils 58 % not estab. Not Available [facility] ([facility]) [address] [facility], [place], [address], 09/11/2021 07:10:54 09/10/20 21 09/11/2021 CBC WITH DIFFE RENTI AL/PL ATELE T lymphs 32 % not estab. Not Available [facility] ([facility]) [address] [facility], [place], [address], 09/11/2021 07:10:54 09/10/20 21 09/11/2021 CBC WITH DIFFE RENTI AL/PL ATELE T monocytes 8 % not estab. Not Available [facility] ([facility]) [address] [facility], [place], [address], 09/11/2021 07:10:54 09/10/20 21 09/11/2021 CBC WITH DIFFE RENTI AL/PL ATELE T eos 1 % not estab. Not Available [facility] ([facility]) [address] [facility], [place], [address], 09/11/2021 07:10:54 09/10/20 21 09/11/2021 CBC WITH DIFFE RENTI AL/PL ATELE T basos 1 % not estab. Not Available [facility] ([facility]) [address] [facility], [place], [address], 09/11/2021 07:10:54 09/10/20 21 09/11/2021 CBC WITH DIFFE RENTI AL/PL ATELE T immature cells [employer] OFFICER Not Available [facility] ([facility]) [address] [facility], [place], [address], 09/11/2021 07:10:54 09/10/20 21 09/11/2021 CBC WITH DIFFE RENTI AL/PL ATELE T neutrophils (absolute) 3.5 x10e3 /uL 1.4-7. 0 Not Available [facility] ([facility]) [address] [place], [address], 09/11/2021 07:10:54 09/10/20 21 09/11/2021 CBC WITH DIFFE RENTI AL/PL ATELE T lymphs (absolute) 1.9 x10e3 /uL 0.7-3. 1 Not Available [facility] ([facility]) [address] [place], [address], 09/11/2021 07:10:54 09/10/20 21 09/11/2021 CBC WITH DIFFE RENTI AL/PL ATELE T monocytes(ab solute) 0.5 x10e3 /uL 0.1-0. 9 Not Available [facility] ([facility]) [address] [place], [address], 09/11/2021 07:10:54 09/10/20 21 09/11/2021 CBC WITH DIFFE RENTI AL/PL ATELE T eos (absolute) 0.1 x10e3 /uL 0.0-0. 4 Not Available [facility] ([facility]) [address] [place], [address], 09/11/2021 07:10:54 09/10/20 21 09/11/2021 CBC WITH DIFFE RENTI AL/PL ATELE T baso (absolute) 0.0 x10e3 /uL 0.0-0. 2 Not Available [facility] ([facility]) [address] [place], [address], 09/11/2021 07:10:54 09/10/20 21 09/11/2021 CBC WITH DIFFE RENTI AL/PL ATELE T immature granulocytes 0 % not estab. Not Available [facility] ([facility]) [address] [facility], [place], [address], 09/11/2021 07:10:54 09/10/20 21 09/11/2021 CBC WITH DIFFE RENTI AL/PL ATELE T immature grans (abs) 0.0 x10e3 /uL 0.0-0. 1 Not Available [facility] ([facility]) [address] [facility], [place], [address], 09/11/2021 07:10:54 09/10/20 21 09/11/2021 CBC WITH DIFFE RENTI AL/PL ATELE T NRBC [employer] OFFICER Not Available [facility] ([facility]) [address] [facility], [place], [address], 09/11/2021 07:10:54 09/10/20 21 09/11/2021 CBC WITH DIFFE RENTI AL/PL ATELE T hematology comments: Note: Verif ied by ariella granados Not Available [facility] ([facility]) [address] [facility], [place], [address], 09/11/2021 07:10:54 11/06/2011/07/2021 URINA LYSIS , ROUTI NE specific gravity 1.026 1.005- 1.030 Not Available [facility] ([facility]) [address] [facility], [place], [address], 11/08/2021 03:08:22 11/06/2011/07/2021 URINA LYSIS , ROUTI NE pH 6.0 5.0-7. 5 Not Available [facility] ([facility]) [address] [facility], [place], [address], 11/08/2021 03:08:22 11/06/20 21 11/07/2021 URINA LYSIS , ROUTI NE urine-color YELLOW yellow Not Available [facility] ([facility]) [address] [facility], [place], [address], 11/08/2021 03:08:22 11/06/20 21 11/07/2021 URINA LYSIS , ROUTI NE appearance TURBID clear abnormal Not Available [facility] ([facility] [address] [facility], [place], [address], 11/08/2021 03:08:22 11/06/20 21 11/07/2021 URINA LYSIS , ROUTI NE WBC esterase NEGATI VE negati ve Not Available [facility] [address] [place], [address], 11/08/2021 03:08:22 11/06/20 21 11/07/2021 URINA LYSIS , ROUTI NE protein NEGATI VE negati ve/tra ce Not Available [facility] ([facility]) [address] [facility], [place], [address], 11/08/2021 03:08:22 11/06/20 21 11/07/2021 URINA LYSIS , ROUTI NE glucose NEGATI VE negati ve Not Available [facility] ([facility]) [address] [facility], [place], [address], 11/08/2021 03:08:22 11/06/20 21 11/07/2021 URINA LYSIS , ROUTI NE ketones NEGATI VE negati ve Not Available [facility] ([facility]) [address] [place], [address], 11/08/2021 03:08:22 11/06/20 21 11/07/2021 URINA LYSIS , ROUTI NE occult blood 2+ negati ve abnormal Not Available [facility] ([facility] [address] [place], [address], 11/08/2021 03:08:22 11/06/20 21 11/07/2021 URINA LYSIS , ROUTI NE bilirubin NEGATI VE negati ve Not Available [facility] ([facility] [address] [place], [address], 11/08/2021 03:08:22 11/06/20 21 11/07/2021 URINA LYSIS , ROUTI NE urobilinogen ,semi-qn 0.2 mg/dL 0.2-1. 0 Not Available [facility] ([facility] [address] [place], [address], 11/08/2021 03:08:22 11/06/20 21 11/07/2021 URINA LYSIS , ROUTI NE nitrite, urine NEGATI VE negati ve Not Available [facility] ([facility]) [address] [facility], [place], [address], 11/08/2021 03:08:22 11/06/2011/07/2021 URINA LYSIS , ROUTI NE microscopic examination SEE BELOW: Micro scopi c was indic ated and was perfo rmed. Not Available [facility] ([facility]) [address] [place], [address], 11/08/2021 03:08:22 11/06/20 21 11/07/2021 URINA LYSIS , ROUTI NE WBC NONE SEEN /hpf 0 - 5 Not Available [facility] ([facility] [address] [place], [address], 11/08/2021 03:08:22 11/06/20 21 11/07/2021 URINA LYSIS , ROUTI NE RBC 3-10 /hpf 0 - 2 abnormal Not Available [facility] ([facility] [address] [place], [address], 11/08/2021 03:08:22 11/06/20 21 11/07/2021 URINA LYSIS , ROUTI NE epithelial cells (non renal) 0-10 /hpf 0 - 10 Not Available [facility] [address] [facility], [place], [address], 11/08/2021 03:08:22 11/06/20 21 11/07/2021 URINA LYSIS , ROUTI NE epithelial cells (renal) [employer] Not Available [facility] ([facility]) [address] [facility], [place], [address], 11/08/2021 03:08:22 11/06/20 21 11/07/2021 URINA LYSIS , ROUTI NE casts NONE SEEN /lpf none seen Not Available [facility] [address] [facility], [place], [address], 11/08/2021 03:08:22 11/06/20 21 11/07/2021 URINA LYSIS , ROUTI NE cast type [employer] Not Available [facility] [address] [facility], [place], [address], 11/08/2021 03:08:22 11/06/20 21 11/07/2021 URINA LYSIS , ROUTI NE crystals [employer]ER Not Available [facility] [address] [facility], [place], [address], 11/08/2021 03:08:22 11/06/20 21 11/07/2021 URINA LYSIS , ROUTI NE crystal type [employer] Not Available [facility] [address] [facility], [place], [address], 11/08/2021 03:08:22 11/06/20 21 11/07/2021 URINA LYSIS , ROUTI NE mucus threads [employer] Not Available [facility] [address] [facility], [place], [address], 11/08/2021 03:08:22 11/06/20 21 11/07/2021 URINA LYSIS , ROUTI NE bacteria NONE SEEN none seen/f ew Not Available [facility] ([facility] [address] [place], [address], 11/08/2021 03:08:22 11/06/20 21 11/07/2021 URINA LYSIS , ROUTI NE yeast [employer] Not Available [facility] [address] [facility], [place], [address], 11/08/2021 03:08:22 11/06/20 21 11/07/2021 URINA LYSIS , ROUTI NE trichomonas [employer] Not Available [facility] [address] [facility], [place], [address], 11/08/2021 03:08:22 11/06/20 21 11/07/2021 URINA LYSIS , ROUTI NE comment [employer] Not Available [facility] [address] [facility], [place], [address], 11/08/2021 03:08:22 11/06/20 21 11/08/2021 BASIC METAB OLIC PANEL (8) glucose 84 mg/dL 65-99 Not Available [facility] ([facility] [address] [facility], [place], [address], 11/08/2021 03:08:23 11/06/20 21 11/08/2021 BASIC METAB OLIC PANEL (8) BUN 17 mg/dL 6-20 Not Available [facility] [address] [facility], [place], [address], 11/08/2021 03:08:23 11/06/20 21 11/08/2021 BASIC METAB OLIC PANEL (8) creatinine 0.74 mg/dL 0.57-1 .00 Not Available [facility] ([facility] [address] [facility], [place], [address], 11/08/2021 03:08:23 11/06/20 21 11/08/2021 BASIC METAB OLIC PANEL (8) eGFR if nonafricn AM 104 mL/mi n/1.7 3 >59 Not Available [facility] ([facility]) [address] [facility], [place], [address], 11/08/2021 03:08:23 11/06/20 21 11/08/2021 BASIC METAB OLIC PANEL (8) eGFR if africn AM 120 mL/mi n/1.7 3 >59 In accor dance with recom menda tions from the NKF-A SN Task force , [facility] is in the proce ss of updat ing its eGFR calcu latio n to the 2020 CKD-E PI creat inine equat ion that estim ates kidne y funct ion witho ut a race varia ble. Not Available [facility] ([facility]) [address] [facility], [place], [address], 11/08/2021 03:08:23 11/06/20 21 11/08/2021 BASIC METAB OLIC PANEL (8) BUN/creatini ne ratio 23 9-23 Not Available [facility] [address] [facility], [place], [address], 11/08/2021 03:08:23 11/06/20 21 11/08/2021 BASIC METAB OLIC PANEL (8) sodium 140 mmol/ L 134-14 4 Not Available [facility] ([facility] [address] [place], [address], 11/08/2021 03:08:23 11/06/20 21 11/08/2021 BASIC METAB OLIC PANEL (8) potassium 4.3 mmol/ L 3.5-5. 2 Not Available [facility] [address] [facility] [place], [address], 11/08/2021 03:08:23 11/06/20 21 11/08/2021 BASIC METAB OLIC PANEL (8) chloride 105 mmol/ L 96-106 Not Available [facility] [address] [place], [address], 11/08/2021 03:08:23 11/06/20 21 11/08/2021 BASIC METAB OLIC PANEL (8) carbon dioxide, total 22 mmol/ L 20- Not Available [facility]) [address] [facility], [place], [address], 11/08/2021 03:08:23 11/06/20 21 11/08/2021 BASIC METAB OLIC PANEL (8) calcium 8.9 mg/dL 8.7-10 .2 Not Available [facility] ([facility]) [address] [facility], [place], [address], 11/08/2021 03:08:23 11/20/19 22 11/21/2021 URINA LYSIS , ROUTI NE specific gravity 1.022 1.005- 1.030 Not Available [facility] [address] [facility], [place], [address], 11/24/2021 14:09:06 11/20/19 22 11/21/2021 URINA LYSIS , ROUTI NE pH 5.5 5.0-7. 5 Not Available [facility] ([facility] [address] [place], [address], 11/24/2021 14:09:06 11/20/19 22 11/21/2021 URINA LYSIS , ROUTI NE urine-color Yellow yellow Not Available [facility] [address] [place], [address], 11/24/2021 14:09:06 11/20/19 22 11/21/2021 URINA LYSIS , ROUTI NE appearance Clear clear Not Available [facility] [address] [facility], [place], [address], 11/24/2021 14:09:06 11/20/19 22 11/21/2021 URINA LYSIS , ROUTI NE WBC esterase Negati ve negati ve Not Available [facility] ([facility]) [address] [facility], [place], [address], 11/24/2021 14:09:06 11/20/19 22 11/21/2021 URINA LYSIS , ROUTI NE protein Negati ve negati ve/tra ce Not Available [facility]) [address] [facility], [place], [address], 11/24/2021 14:09:06 11/20/19 22 11/21/2021 URINA LYSIS , ROUTI NE glucose Negati ve negati ve Not Available [facility]) [address] [facility], [place], [address], 11/24/2021 14:09:06 11/20/19 22 11/21/2021 URINA LYSIS , ROUTI NE ketones Negati ve negati ve Not Available [facility] ([facility]) [address] [facility], [place], [address], 11/24/2021 14:09:06 11/20/19 22 11/21/2021 URINA LYSIS , ROUTI NE occult blood Negati ve negati ve Not Available [facility] [address] [facility], [place], [address], 11/24/2021 14:09:06 11/20/19 22 11/21/2021 URINA LYSIS , ROUTI NE bilirubin Negati ve negati ve Not Available [facility] ([facility]) [address] [place], [address], 11/24/2021 14:09:06 11/20/19 22 11/21/2021 URINA LYSIS , ROUTI NE urobilinogen ,semi-qn 0.2 mg/dL 0.2-1. 0 Not Available [facility] ([facility] [address] [place], [address], 11/24/2021 14:09:06 11/20/19 22 11/21/2021 URINA LYSIS , ROUTI NE nitrite, urine Negati ve negati ve Not Available [facility] ([facility] [address] [place], [address], 11/24/2021 14:09:06 11/20/19 22 11/21/2021 URINA LYSIS , ROUTI NE microscopic examination Commen t Micro scopi c not indic ated and not perfo rmed. Not Available [facility] ([facility] [address] [place], [address], 11/24/2021 14:09:06 11/20/19 22 11/24/2021 URINE CULTU RE, ROUTI NE urine culture, routine Final report abnormal Not Available [facility] ([facility] [address] [place], [address], 11/24/2021 14:09:07 11/20/19 22 11/24/2021 URINE CULTU RE, ROUTI NE result 1 Citrob acter koseri abnormal 10,00 0-25, 000 colon y formi ng units per mL Not Available [facility] ([facility] [address] [place], [address], 11/24/2021 14:09:07 11/20/19 22 11/24/2021 URINE CULTU RE, ROUTI NE result 2 Commen t Mixed uroge nital jhonny 10,00 0-25, 000 colon y formi ng units per mL Not Available [facility] ([facility] [address] [place], [address], 11/24/2021 14:09:07 11/20/1911/24/2021 URINE CULTU RE, ROUTI NE antimicrobia l susceptibili ty Commen t S = Susce ptibl e; I = Inter media te; R = Resis tant P = Posit jacoby; N = Negat jacoby MICS are expre ssed in micro grams per mL Antib iotic RSLT# 1 RSLT# 2 RSLT# 3 RSLT# 4 Amoxi cilli n/Cla vulan ic Acid S Cefep abdulaziz S Ceftr iaxon e S Cefur oxime I Cipro floxa ralf S Ertap enem S Genta micin S Imipe nem S Levof loxac in S Merop enem S Nitro furan toin S Piper acill in/Ta zobac lee S Tetra cycli ne S Tobra mycin S Trime thopr im/Mccoy lfa S Not Available [facility] [address] [facility], [place], [address], 11/24/2021 14:09:07 11/20/19 22 11/20/2021 urina lysis , dipst ick Leukocytes Negati ve Not Available In-Office Order Internal Use Only DO Not Attach Compendium DO Not Attach Compendium, Do Not Delete/merge, 11/20/2021 10:19:43 11/20/19 22 11/20/2021 urina lysis , dipst ick Nitrite negati ve Not Available In-Office Order Internal Use Only DO Not Attach Compendium DO Not Attach Compendium, Do Not Delete/merge, 11/20/2021 10:19:43 11/20/19 22 11/20/2021 urina lysis , dipst ick Urobilinogen .2 Not Available In-Of fice Order Internal Use Only DO Not Attach Compendium DO Not Attach Compendium, Do Not Delete/merge, 11/20/2021 10:19:43 11/20/19 22 11/20/2021 urina lysis , dipst ick Protein Negati ve Not Available In-Office Order Internal Use Only DO Not Attach Compendium DO Not Attach Compendium, Do Not Delete/merge, 11/20/2021 10:19:43 11/20/1911/20/2021 urina lysis , dipst ick pH 5.5 Not Available In-Office Order Internal Use Only DO Not Attach Compendium DO Not Attach Compendium, Do Not Delete/merge, [id number] 11/20/2021 10:19:43 11/20/1911/20/2021 urina lysis , dipst ick Blood Negati ve Not Available In-Office Order Internal Use Only DO Not Attach Compendium DO Not Attach Compendium, Do Not Delete/merge, [id number] 11/20/2021 10:19:43 11/20/19 22 11/20/2021 urina lysis , dipst ick Specific [place] 1.025 Not Available In-Off ice Order Internal Use Only DO Not Attach Compendium DO Not Attach Compendium, Do Not Delete/merge, [id number] 11/20/2021 10:19:43 11/20/19 22 11/20/2021 urina lysis , dipst ick Ketone Negati ve Not Available In-Office Order Internal Use Only DO Not Attach Compendium DO Not Attach Compendium, Do Not Delete/merge, [id number] 11/20/2021 10:19:43 11/20/19 22 11/20/2021 urina lysis , dipst ick Bilirubin Negati ve Not Available In-Office Order Internal Use Only DO Not Attach Compendium DO Not Attach Compendium, Do Not Delete/merge, [facility] 11/20/2021 10:19:43 11/20/19 22 11/20/2021 urina lysis , dipst ick Glucose Negati ve Not Available In-Office Order Internal Use Only DO Not Attach Compendium DO Not Attach Compendium, Do Not Delete/merge, [facility] 11/20/2021 10:19:43 11/20/19 22 11/20/2021 urina lysis , dipst ick Appearance Slight ly Cloudy Not Available In-Office Order Internal Use Only DO Not Attach Compendium DO Not Attach Compendium, Do Not Delete/merge, [facility] 11/20/2021 10:19:43 11/20/19 22 11/20/2021 urina lysis , dipst ick Color Yellow Not Available In-Office Order Internal Use Only DO Not Attach Compendium DO Not Attach Compendium, Do Not Delete/merge, [id number] 11/20/2021 10:19:43 11/20/19 22 11/20/2021 pregn deysi test, urine HCG negati ve Not Available In-Office Order Internal Use Only DO Not Attach Compendium DO Not Attach Compendium, Do Not Delete/merge, [facility] 11/20/2021 09:43:49 03/04/20 22 03/04/2022 histo rical labs hemoglobin 9.2 low Not Available [facility] [address], [address], 03/05/2022 15:58:28 03/04/20 22 03/04/2022 histo rical labs hematocrit 32.1 low Not Available [facility] [address], [address], 03/05/2022 15:58:28 03/04/20 22 03/04/2022 histo rical labs MCV 76.6 low Not Available [facility] [address], [address], 03/05/2022 15:58:28 03/04/20 22 03/04/2022 histo rical labs RDW 16.8 high Not Available [facility] [address], [address], 03/05/2022 15:58:28 07/09/20 21 XR, chest , 2 view [facility] [address] [place] [address] Examin ation: Chest x-ray 2 view Access ion: [id number] Exam date/t abdulaziz: 021 12:31 PM Reason For Exam: dyspne a Compar andree: 018 Techni que: PA and latera l views of the chest were obtain ed. Findin gs: The cardia c silhou ette, medias tinal contou rs, and pulmon vinicio vessel s appear normal . The lungs are clear. No pneumo thorax . No consol idatio ns or effusi ons are seen. =====I MPRESS ION:== === 1. No radiog raphic eviden ce of active diseas e the chest. ====== ====== ====== === Referr ed By: LUÍS Bah ALONA Electr onical ly Signed By: Garcia kelly MD on 12:54 PM Interp reted By: Garcia kelly MD, 12:54 PM [email or web address] [facility] Scheduling [address] [facility], [place], [address], 07/17/2021 14:14:44 08/12/20 21 ECG 12-le ad [facility] [address] [facility] [address] [place], [place] [address] [place] [address]`s [place] [address] GabriellaJace n [place] Test Date: 2020-11 0-03 Pat Name: ROBERT VICTORIA AI Depart ment: Ly lester ID: [id number] Room: INOR Gender : Female Techni alice: : 2- Reques rashaun By: KIARRA Medrano Order Number : [id number] Slick parikh MD: Ruslan Wagner [employer] e[employer] Interv als [place] Rate: 110 P: 57 OR: 133 QRS: 29 QRSD: 88 T: -11 QT: 319 QTc: 433 Interp retive Statem ents SINUS TACHYC ARDIA NONSPE CIFIC T-WAVE ABNORM ALITY ABNORM AL RHYTHM ECG Compar ed to ECG 2017 20:13: 21 Short OR interv al no longer presen t T-wave abnorm ality still presen t Electr onical ly signed by Ruslan Wagner at 17:40: 45 CDT [email or web address] [facility] [address] [facility], [place], [address], 08/16/2021 15:06:27 08/12/20 21 cta chest [facility] [address] [address] Examin ation: CTA CHEST Clinic al histor y: Chest tightn ess Compar andree: None DATE/T ABDULAZIZ: 5:49 PM Techni que: Multip lanar images of the chest were obtain ed follow ing the uneven tful intrav enous admini strati on of 100 mL Isovue 370. 3-D and/or MIP recons tructi ons were create d and review ed. A dose loweri ng techni que was used for this proced ure, which may includ e, but is not limite d to, dose reduct ion techni que, automa rashaun exposu re contro l, the use of iterat jacoby recons tructi on, and ALARA (As Low As Reason ably Achiev able) / Image Gently techni ques. Findin gs: No eviden ce of centra l, lobar or segmen t of pulmon vinicio emboli sm. Opacif icatio n of small periph eral pulmon vinicio artery branch es is insuff icient to comple tely exclud e tiny subseg mental emboli . If clinic al concer n remain s high could consid er nuclea r medici ne perfus ion scan. Heart size is normal . Thorac ic aorta is normal calibe r. No perica rdial effusi on. No medias tinal or hilar lympha denopa thy. No pulmon vinicio consol idatio n, pleura l effusi on or pneumo thorax . Mild bibasi lar atelec tasis. No periph eral ground glass infilt rates typica l of viral pneumo nitis. No acute osseou s abnorm ality or destru ctive bone lesion . IMPRES RAQUEL: 1. No eviden ce of pulmon vinicio emboli sm identi fied. Limite d evalua tion for tiny subseg mental emboli , as above. 2. No eviden ce of pneumo serina. Referr ed By: Electr onical ly Signed By: Johan Baker MD on 6:09 PM Interp reted By: Johan Baker MD, 6:06 PM 500 NO LABS [email or web address], [place], [address], 08/13/2021 11:52:05 11/20/19 22 11/20/2021 elect michelle sauergr am No observ ation record ed. [email or web address] In-Office Order Internal Use Only DO Not Attach Compendium DO Not Attach Compendium, Do Not Delete/merge, [id number] 11/20/2021 17:46:18 11/20/19 XR, kidne y + urete r + bladd er [facility] [place] [address] EXAMIN ATION: ABDOME N RADIOG RAPH ACCESS ION: [id number] EXAM DATE: 10:03 AM REASON FOR EXAM: kidney stone COMPAR ANDREE: CT 2019 TECHNI QUE: Single view FINDIN GS: Phlebo liths in the pelvis . No defini te urolit hiasis . No eviden ce of small or large bowel dilata tion. IMPRES RAQUEL: 1. No defini te kidney stones . Ordere d By: LUÍS SAGE Electr onical ly Signed By: Burton Muñoz on 10:19 AM Interp reted By: Burton Muñoz, 10:16 AM [facility] Scheduling [facility], [place], [address], 11/23/2021 20:00:30 11/22/19 22 11/20/2021 elect michelle nascimento am No observ ation record ed. BARCODE Not Available 2021 12:12:48 Result Notes Documentation Provider Name and Address Organization Details Recorded Time Xr, Chest, 2 View : [place] [address] Examination: Chest x-ray 2 view Exam date/time: 07/09/2021 12:31 PM Reason For Exam: dyspnea Comparison: 12/01/2017 Technique: PA and lateral views of the chest were obtained. Findings: The cardiac silhouette, mediastinal contours, and pulmonary vessels appear normal. The lungs are clear. No pneumothorax. No consolidations or effusions are seen. =====IMPRESSION:===== 1. No radiographic evidence of active disease the chest. Referred By: ADALBERTO SAGE Interpreted By: Kwadwo Kate MD, 07/09/2021 12:54 PM Vannessa De Lunadiqui jesus, [place] - [facility] 07/17/2021 14:14:44 Xr, Kidney + Ureter + Bladder : [facility] [place] [address] EXAMINATION: ABDOMEN RADIOGRAPH EXAM DATE: 11/20/2021 10:03 AM REASON FOR EXAM: kidney stone COMPARISON: CT 10/30/2020 TECHNIQUE: Single view FINDINGS: Phleboliths in the pelvis. No definite urolithiasis. No evidence of small or large bowel dilatation. IMPRESSION: 1. No definite kidney stones. Ordered By: ADALBERTO SAGE Interpreted By: Burton Muñoz, 11/20/2021 10:16 AM Adalberto lee, [place] [facility] 11/20/2021 22:31:56 Problems Name Problem SNOMED Code Status Onset Date Resolution Date Notes Provider Name and Address Organization Details Recorded Time Menorrha john 220455977 Active PEDRO Quiñonez, [place] - [facility] 6 15:17:58 Asthma 407867392 Active Ovidio Aguirre PA-C Attn: Rios parikh,[address] [place], [address] [facility] [place] - [facility] 6 12:29:52 Pleurisy 122568905 Completed 09/30/2018 Adam lee, [place] [facility] 8 18:02:40 Anemia 327583702 Completed 02/09/2016 Adal[place] [facility] 22:05:29 Obese 711845374 Active Ovidio Aguirre PA-C Attn: Accountin g,[address] [facility], [place], [address], [place] - [facility] 6 12:29:52 Iron deficien cy anemia 89812366 Active Adam ParraLoyda null, [place] [facility] 6 03:18:57 Anemia 517696739 Completed 07/09/2021 Adalber[place] Sage [place] [facility] 1 22:05:29 Candidia sis 58619089 Completed 07/09/2021 [place] [facility] 1 22:05:38 Low back pain 065801784 Completed 09/30/2018 Adam ParraLoyda [place] [facility] 8 18:02:36 Anxiety 83673686 Active Ovidio Aguirre PA-C Attn: Accountin g,[address] [facility], [place], [address], [place] [facility] 6 12:29:52 Irritabl e bowel syndrome 26858381 Active Ovidio Aguirre PA-C Attn: Accountin g,[address] [facility], [place], [address], [place] [facility] 6 12:29:52 Polycyst ic ovaries Active Victorino Coleman LPN [place] [facility] 6 15:17:58 Hyperlip idemia 47465960 Active Adam ParraL[place]da [place] [facility] 6 03:18:57 Impaired glucose toleranc e 1556460 Completed 09/30/2018 Adam [place]da [place] [facility] 8 18:02:52 Generali zed tenderne ss of breast 269471239 Completed 09/30/2018 Adam ParraL[place]da [place] [facility] 8 18:02:32 Pain of breast 44332515 Completed 09/30/2018 Adam Loyda jesus[place] [facility] 8 18:02:45 Family history of breast cancer 193494155 Active 2017 Adam [place]da [place] [facility] 8 18:00:02 Hypertro phy of uterus 584134144 Active 2020 Plans for robotic-a ssisted total laparosco pic hysterect linda by Teo Blackmon MD. Adalberto lee, [facility] 1 13:52:33 Dyspnea 284261761 Active 2020 Adalberto lee, [facility] 22:05:22 Intermit tent palpitat ions 419260573 Active 2020 Adalberto lee, [facility] 22:08:33 SARS-CoV -2 Completed 202011/20/2021 Adalberto lee, [facility] 2 08:28:09 Right flank pain 106790695 Active 2020 Adalberto Borgesum jesus, [facility] 21:52:33 Problem Notes None recorded. Procedures Surgical History Date Name Laterality Status Provider Name and Address Organization Details Recorded Time 8 Date of Last Pap Smear completed Janis Fields MA [facility] 09/30/2018 17:11:00 6 colonoscopy completed Adalberto Sage [facility] 10/15/2021 13:48:33 9 Tubal Ligation completed Janis Fields MA [facility] 11/16/2014 15:22:53 Imaging Results None recorded. Procedure Notes None recorded. Medical Equipment None Reported. Allergies Allergen ID Allergen Name Allergen Category Reaction Reaction Severity Criticality Documentation Date Start Date Code Code System Note Provider Name and Address Organization Details Recorded Time 395054 Substance with sulfonami de structure and antibacte rial mechanism of action (substanc e) medicatio n Not available Not available Not available 07/09/2021 32260 8003 SNOMED JA Sol, [facility] 1 11:13:28 27551 acetamino phen / hydrocodo ne medicatio n vomiting severe Not available 11/16/2014 29398 2 RxNorm Janis Fields MA [facility], [facility] 5 15:15:34 29291 Bactrim medicatio n vomiting severe Not available 11/16/2014 09869 9 RxNorm Janis Donnie JA [place], [place] - [facility] 5 15:16:25 [id number] Bactrim medicatio n hives Not available Not available 02/02/2015 [id number] RxNorm Adam Scales [place], [place] [facility] 6 03:19:26 [id number] Keflex medicatio n hives Not available Not available 02/02/2015 [id number] 7 RxNorm Adam Scales [place] [facility] 6 03:19:26 [id number] codeine medicatio n vomiting Not available Not available 02/02/2015 2670 RxNorm Joycelyn Withouse [place] [facility] 5 12:14:28 42777 hydrocodo ne Not available vomiting Not available Not available 02/02/2015 5489 RxNorm Joycelyn Withouse [place] [facility] 5 12:14:28 Medications Name Sig Start Date Stop Date Status Note LastModified by Organization Details LastModified Time Prescripti on - Prior Authorizat ion Request 09/30 completed Not Available Not Available Not Available multivitam in tablet Take 1 tablet every day by oral route. 07/09 completed Not Available Not Available Not Available fluoxetine 40 mg capsule TAKE 2 CAPSULES BY MOUTH ONCE DAILY active Not Available Not Available No t Available cyclobenza henry 10 mg tablet Take 1 tablet every day by oral route at bedtime for 30 days. 01/08 completed Not Available Not Available Not Available amoxicilli n 500 mg capsule 01/08 completed Not Available Not Available Not Available buspirone 5 mg tablet Take 1 tablet twice a day by oral route after meals for 30 days. 01/08 completed Not Available Not Available Not Available evening primrose oil 500 mg capsule Take 1 capsule every day by oral route at bedtime. 07/09 completed Not Available Not Available Not Available trazodone 50 mg tablet 01/08 completed Not Available Not Available Not Available azithromyc in 250 mg tablet active Not Available Not Available Not Available ibuprofen 800 mg tablet Take 1 tablet 3 times a day by oral route for 30 days. 07/09 completed Not Available Not Available Not Available fluconazol e 150 mg tablet Take 1 tablet by oral route. active Not Available Not Available No t Available metronidaz ole 500 mg tablet 01/08 completed Not Available Not Available Not Available acetaminop hen 300 mg-codeine 30 mg tablet 01/08 completed Not Available Not Available Not Available fexofenadi ne 180 mg tablet 07/09 completed Not Available Not Available Not Available prochlorpe razine maleate 10 mg tablet 07/09 completed Not Available Not Available Not Available tramadol 50 mg tablet 01/08 completed Not Available Not Available Not Available amoxicilli n 500 mg tablet Take 1 tablet every 12 hours by oral route for 10 days. 01/08 completed Not Available Not Available Not Available acyclovir 800 mg tablet Take 1 tablet every day by oral route for 30 days. 07/09 completed Not Available Not Available Not Available amoxicilli n 875 mg tablet active Not Available Not Available Not Available citalopram 20 mg tablet Take 1 tablet every day by oral route in the evening for 30 days. 01/08 completed Not Available Not Available Not Available famotidine 20 mg tablet Take 1 tablet twice a day by oral route. active Not Available Not Available No t Available magnesium oxide 400 mg (241.3 mg magnesium) tablet TAKE 1 TABLET BY MOUTH ONCE DAILY active Not Available Not Available No t Available lorazepam 0.5 mg tablet 07/09 completed Not Available Not Available Not Available trazodone 100 mg tablet 07/09 completed Not Available Not Available Not Available ciprofloxa ralf 0.3 % eye drops 01/08 completed Not Available Not Available Not Available imiquimod 5 % topical cream packet APPLY TOPICALL Y TO THE AFFECTED AREA(S) 5 TIMES PER WEEK 07/09 completed Not Available Not Available Not Available meclizine 25 mg tablet 07/09 completed Not Available Not Available Not Available benzonatat e 100 mg capsule active Not Available Not Available Not Available cephalexin 500 mg capsule 01/08 completed Not Available Not Available Not Available simvastati n 20 mg tablet Take 1 tablet every day by oral route. 01/08 completed Not Available Not Available Not Available erythromyc in 5 mg/gram (0.5 %) eye ointment active Not Available Not Available Not Available metformin 1,000 mg tablet Take 1 tablet twice a day by oral route. 01/08 completed Not Available Not Available Not Available tobramycin 0.3 % eye drops 01/08 completed Not Available Not Available Not Available nystatin 100,000 unit/gram topical cream APPLY TO THE AFFECTED AREA(S) BY TOPICAL ROUTE 2 TIMES PER DAY 2014 active Not Available Not Available Not Avai lable fluorometh olone 0.1 % eye drops,susp ension active Not Available Not Available Not Available promethazi ne 25 mg tablet active Not Available Not Available Not Available orphenadri ne citrate ER 100 mg tablet,ext ended release active Not Available Not Available Not Available fluoxetine 10 mg capsule 07/09 completed Not Available Not Available Not Available omeprazole 20 mg capsule,de layed release 01/08 completed Not Available Not Available Not Available diazepam 10 mg tablet TAKE 1 TABLET BY MOUTH THREE TIMES DAILY NEEDED SEVERE ANXIETY FOR 30 DAYS active Not Available Not Available No t Available ibuprofen 600 mg tablet 01/08 completed Not Available Not Available Not Available albuterol sulfate HFA 90 mcg/actuat ion aerosol inhaler INHALE 2 PUFFS INTO THE LUNGS EVERY 6 HOURS NEEDED FOR WHEEZING . active Not Available Not Available No t Available Zovirax 5 % topical ointment APPLY TO THE AFFECTED AREA(S) BY TOPICAL ROUTE EVERY 3 HOURS 6 TIMES PER DAY 09/30 completed Not Available Not Available Not Available fluoxetine 20 mg capsule TAKE 3 CAPSULES BY MOUTH ONCE DAILY FOR 10 DAYS 07/09 completed Not Available Not Available Not Available fluticason e propionate 50 mcg/actuat ion nasal spray,susp ension 07/09 completed Not Available Not Available Not Available dicyclomin e 10 mg capsule Take 1 capsule 3 times a day by oral route as needed. 01/08 completed Not Available Not Available Not Available naproxen 500 mg tablet 07/09 completed Not Available Not Available Not Available diazepam 5 mg tablet 07/09 completed Not Available Not Available Not Available hydroxyzin e pamoate 25 mg capsule Take 1 capsule 3 times a day by oral route as needed for 30 days. 01/08 completed Not Available Not Available Not Available neomycin-p olymyxin-h ydrocort 3.5 mg-10,000 unit/mL-1 % ear drops,susp active Not Available Not Available N ot Available Slow Release Iron 160 mg (50 mg iron) tablet,ext ended release Take 1 tablet every other day by oral route for 90 days. 2020 active Not Available Not Available Not Avai lable pen needle, diabetic 31 gauge x 5/16 USE ONCE DAILY TO ADMINIST ER INSULIN active Not Available Not Available No t Available Ortho Tri-Cyclen LO (28) 0.18 mg/0.215 mg/0.25 mg-25 mcg tablet Take 1 tablet every day by oral route. 2014 active Not Available Not Available Not Avai lable Microgesti n 1.5/30 (21) 1.5 mg-30 mcg tablet 01/08 completed Not Available Not Available Not Available bupropion HCl XL 300 mg 24 hr tablet, extended release 07/09 completed Not Available Not Available Not Available bupropion HCl XL 150 mg 24 hr tablet, extended release 01/08 completed Not Available Not Available Not Available Tri-Sprint ec (28) 0.18 mg(7)/0.21 5 mg(7)/0.25 mg(7)-0.03 5 mg tablet Take 1 tablet every day by oral route. active Not Available Not Available No t Available lactulose 10 gram/15 mL oral solution 01/08 completed Not Available Not Available Not Available ferrous gluconate 324 mg (36 mg iron) tablet Take 1 tablet twice a day by oral route with meals for 30 days. 01/08 completed Not Available Not Available Not Available iron OTC-1 tab po qd active Not Available Not Available No t Available Symbicort 160 mcg-4.5 mcg/actuat ion HFA aerosol inhaler 07/09 completed Not Available Not Available Not Available FeroSul 325 mg (65 mg iron) tablet TAKE 1 TABLET BY MOUTH THREE TIMES DAILY active Not Available Not Available No t Available Calcium with Vitamin D 600 mg-10 mcg (400 unit) tablet 01/08 completed Not Available Not Available Not Available vitamin E (dl, acetate) 180 mg (400 unit) capsule Take 1 capsule twice a day by oral route. 09/30 completed Not Available Not Available Not Available GaviLyte-N 420 gram oral solution active Not Available Not Available Not Available Vitamin D3 25 mcg (1,000 unit) chewable tablet Take 1 tablet twice a day by oral route. active Not Available Not Available No t Available Lo Loestrin Fe 1 mg-10 mcg (24)/10 mcg (2) tablet 01/08 completed Change Not Available Not Available Not Available ferrous gluconate 324 mg (37.5 mg iron) tablet 01/08 completed Not Available Not Available Not Available Amethia Lo 0.1 mg-20 mcg (84)/10 mcg (7) tablets,3 month dose pack Take 1 tablet every day by oral route. 07/09 completed Not Available Not Available Not Available lactulose 10 gram/15 mL (15 mL) oral solution Take 15 mL every day by oral route. 01/08 completed Not Available Not Available Not Available calcium 600 mg (as carbonate) -vitamin D3 20 mcg (800 unit) tablet Take 1 tablet twice a day by oral route. 07/09 completed Not Available Not Available Not Available Linzess 145 mcg capsule Take 1 capsule every day by oral route. 01/08 completed Not Available Not Available Not Available Victoza 2-Yo 0.6 mg/0.1 mL (18 mg/3 mL) subcutaneo us pen injector INJECT 1.2 MG IN THE SUBCUTAN EOUS TISSUE OF THE BELLY DAILY active Not Available Not Available No t Available Fluvirin 2207-1566 45 mcg (15 mcg x 3)/0.5 mL intramuscu lar suspension active Not Available Not Available N ot Available Vitals Date Recorded Body height Body mass index (BMI) Body weight Heart rate Oxygen saturation Oxygen saturation in Arterial blood by Pulse oximetry Body temperature Systolic And Diastolic Provider Name and Address Organization Details Last Updated DateTime 2 167.64 cm 33.6 kg/m2 20879.5 6 g 78 /min 99 % 99 % 97.7 [degF] 128/76 mm[Hg] Zuly Landaverde [place] - [facility] 2 09:03:13 Date Recorded Body height Body mass index (BMI) Body weight Heart rate Body temperature Oxygen saturation Oxygen saturation in Arterial blood by Pulse oximetry Systolic And Diastolic Provider Name and Address Organization Details Last Updated DateTime 2 167.64 cm 33.7 kg/m2 00572.8 1 g 100 /min 98 [degF] 99 % 99 % 124/70 mm[Hg] Ronald SARAH Carpio [facility] 2 16:55:31 Date Recorded Body height Body mass index (BMI) Body weight Heart rate Oxygen saturation Oxygen saturation in Arterial blood by Pulse oximetry Systolic And Diastolic Provider Name and Address Organization Details Last Updated DateTime 1 167.64 cm 34.9 kg/m2 63276.9 5 g 80 /min 99 % 99 % 130/76 mm[Hg] Olga Swift MA [facility] 1 11:16:21 Date Recorded Body height Body mass index (BMI) Body weight Heart rate Body temperature Oxygen saturation Oxygen saturation in Arterial blood by Pulse oximetry Systolic And Diastolic Provider Name and Address Organization Details Last Updated DateTime 1 167.64 cm 35.4 kg/m2 70657.4 3 g 88 /min 98.7 [degF] 100 % 100 % 126/78 mm[Hg] Sukumar Cunningham MA [facility] 1 11:57:27 Date Recorded Body height Body mass index (BMI) Body weight Heart rate Oxygen saturation Oxygen saturation in Arterial blood by Pulse oximetry Body temperature Systolic And Diastolic Provider Name and Address Organization Details Last Updated DateTime 1 167.64 cm 34.7 kg/m2 56805.7 1 g 74 /min 99 % 99 % 98.5 [degF] 120/72 mm[Hg] Zuly Landaverde MA [facility] 1 09:28:51 Social History Question Answer Notes LastModified by Organizat ion Details LastModified Time Tobacco Smoking Status Former Smoker Quit 2011 Maggie Ruiz MA [facility], [facility] 02/02/2015 16:02:02 Do You Have An Advance Directive? No Information not available 11/16/2014 Are You Blind Or Do You Have Difficulty Seeing? No Information not available 05/19/2015 Is Blood Transfusion Acceptable In An Emergency? Yes Information not available 11/16/2014 What Is Your Level Of Caffeine Consumption? Heavy Information not available 11/16/2014 How Much Tobacco Do You Chew? None Information not available 11/16/2014 Are You Deaf Or Do You Have Serious Difficulty Hearing? No Information not available 05/19/2015 What Type Of Diet Are You Following? REGULAR Information not available 11/16/2014 Education 2 Year College Information not available 11/16/2014 Are There Any Guns Present In Your Home? No Information not available 05/19/2015 Hard Of Hearing Or Deaf In One Or Both Ears? No Information not available 05/19/2015 Legally Blind In One Or Both [facility]? [facility] Information no t available 05/19/2015 Live Alone Or With Others? With Others Information not available 11/16/2014 Marital Status [facility] Informatio n not available 05/19/2015 What Was The Date Of Your Most Recent Tobacco Screening? 06/24/2022 Information not available 06/24/2022 How Many Children Do You Have? 3 Information not available 11/16/2014 Performs Monthly Self-breast Exam? Yes Information no t available 11/16/2014 Do You Use Protection During Sex? No Information not available 11/16/2014 What Is Your Relationship Status? Information not available 11/16/2014 Seat Belts Used Routinely Yes Information not available 11/16/2014 Are You Sexually Active? Yes Information not available 11/16/2014 Smoke Alarm In Home Yes Information not available 05/19/2015 Do You Have Smoke And Carbon Monoxide Detectors In Your Home? Yes Information not available 07/09/2021 At What Age Did You Start Smoking Tobacco? 17 Information not available 05/19/2015 Are You Passively Exposed To Smoke? No Information no t available 07/09/2021 How Much Tobacco Do You Smoke? No Information not available 11/16/2014 General Stress Level Medium [email or web address] Information not available 01/08/2018 Do You Use Sunscreen Routinely? Yes Information not available 11/16/2014 How Many Years Have You Smoked Tobacco? 10 Information not available 11/16/2014 Do You Have Difficulty Walking Or Climbing Stairs? No Information not available 05/19/2015 Sex: Unknown Functional Status Question Answer Note LastModified by Organizat ion Details LastModified Time Do you use any illicit or recreational drugs? Yes marijuana Information not available 06/24/2022 What is your level of alcohol consumption? Occasional Information not available 11/16/2014 Are you currently employed? No Information not available 11/16/2014 Do you have difficulty doing errands alone? 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 No Information not available 05/19/2015 What is your exercise level? Heavy Information not available 11/16/2014 Mental Status Question Answer Note LastModified by Organization D etails LastModified Time Do you have difficulty concentrating, remembering or making decisions? No Information no t available 05/19/2015 Family History Relationship Description Onset Age of this Age Resolved Age Notes LastModified by Organization Details LastModified Time Father Kidney disease diabet ic, CHF, Hypert ension Not available 07/22/2016 17:08:25 Father Harmful pattern of use of alcohol [email or web address] Not available 2015 17:08:25 Father Cerebrovascu lar accident [email or web address] Not available 10/2016 17:08:25 Father Coronary arterioscler osis [email or web address] Not available 2015 17:08:25 Father Dementia Not availabl e 07/22/2016 17:08:25 Father Depressive disorder [email or web address] Not available 2015 17:08:25 Father Diabetes mellitus [email or web address] Not available 2015 17:08:25 Father Heart disease [email or web address] Not available 2015 17:08:25 Father Hypercholest erolemia [email or web address] Not available 2015 17:08:25 Father Hypertensive disorder [email or web address] Not available 2015 17:08:25 Father Myocardial infarction [email or web address] Not available 07/22 17:08:25 Medical History Condition Response Coronary Artery Disease N Kidney Cyst N Blood Diseases N Hyperthyroidism N Blood disorders N Blood Transfusion N MRSA N Emphysema N Depression N COPD N Blood Clots N Pneumonia N Premature N Peripheral Arterial Disease N Edema N TIA N Headaches/Migraines N Anxiety Disorder Y Obesity N Polyps N Infertility N Acid Reflux (GERD) N Hematuria N Stroke N Neck Injury N Polio N Hospital Admission other than N Neurologic Disorder N Other Sleep Disorders N Rheumatoid Arthritis N Fibromyalgia N Abdominal Aortic Aneurysm Repair N Kidney Disease N Heart Conditions N Heart Disease/Heart Problems N Hospitalizations N Brain Tumors N Acne N Skin Problems N Eating Disorder N Meningitis N Constipation N Tuberculosis N Cerebral Palsy N Myocardial Infarction N Asthma Y Substance Abuse N Peripheral Vascular Disease N Vertigo N Sleep Disorder N Cirrhosis N Pulmonary Embolism N Chicken Pox N Hematologic Disease N Flomax Use Past or Present N Anxiety/Depression N Thyroid Disease N Colon Cancer N Lung Disease N Glaucoma N Developmental or Behavioral Disorders N Bipolar N Pacemaker N Diverticulitis/Diverticulosis N Orthopedic Problems N Anesthesia Complications N Orthotics N Head Injury/Concussion N Congenital Anomalies N Duran Bite N Chronic Kidney Disease N Endometriosis N Liver Disease N Schizophrenia N Dialysis N Speech Delay N Chronic Obstructive Pulmonary Disease N Parkinson's Disease N Thyroid Problems N GI Problems N Developmental Delay N Anemia N Multiple Sclerosis N Immune System Disorder N Colon Polyps N Heart Attack (MD) N Diabetes N Cardiomyopathy N Blood Transfusions N Heart Problems/Murmur N Eye Trauma N Congestive Heart Failure (CHF) N Valvular Heart Disease N Hyperlipidemia Y Double Vision N Abuse/Domestic Violence N Hepatitis B N Lupus N Epilepsy/Seizures N Reflux/GERD N Aneurysm N Heart Disease N Bronchitis N Pre-Eclampsia N Hypertension N Heart Failure N Other Y Gout N High Blood Pressure N Atrial Fibrillation N Kidney Stones N Head Trauma/Injury N Congenital Heart Disease N Spine Problems N Gastrointestinal Disease N Lung Mass N Sinusitis N Obstructive Sleep Apnea N Muscle, Joint, or Bone Problems N Autoimmune disease N Vision or Eye Problems N Arthritis N Blood Clot N Cancer N Seasonal allergies N Leg or Foot Ulcers N Raynaud's Disease N Aortic Aneurysm N Arrhythmia N Headaches N Heart Problems N Ambloypia N Ear or Hearing Problems N Hyperparathyroidism N Migraines N Artificial Joints N Kidney or Bladder Problems N NSAID Use N Encephalitis N PTSD N Ulcers N Prostate Hypertrophy N Bleeding Disorder N AIDS/HIV N Urinary Tract Infection N Back Problems N Allergies N Atrial Flutter N GERD/Reflux N Hepatitis N Autism Spectrum Disorder (ASD) N Breast Cancer N Hernia N Hypothyroidism N Breast Problem N Genitourinary Disease N Deep Vein Thrombosis N Varicose Veins N Cystic Fibrosis N Hearing Loss N Developmental Problems N Carotid Disease N Vitamin D Deficiency Y ADHD N Bladder or Kidney Problems N High Cholesterol Y [place]iers N Valvular Abnormalities N Psychiatric/Mental Health Condition N Organ Transplant N Foot Deformity N Allergies/Hayfever N Dyslipidemia N Hyponatremia N Diabetic Eye Disease N Osteoporosis/Osteopenia N Back Pain N Proteinuria N Mental Illness N Neurological Problems N Ovarian Cancer N Bedwetting N Seizures/Epilepsy N Kidney Failure N Ocular trauma N Diverticulitis N Dementia N Sleep Apnea N Mental Problems N Warfarin Management N Osteoporosis N Gynecological History Statement/Question Response Abnormal Pap N Flow Heavy STIs/STDs Y HPV Vaccine N Duration of Flow (days) 7 Age at Menarche 10 Current Control Method Tubal Ligat ion Age at First Child 17 Sexually Active? Y Menses Monthly N Date of Last Pap Smear 01/08/2018 Sexual Problems? Y LMP Approximate Desired Control Method None Obstetrics History GPAL:G 3 P 3 0 0 3 Type Value Multiple Births 0 Full Term 3 Induced 0 Spontaneous 0 Premature 0 Living 3 Ectopics 0 Total 3 Immunizations Vaccine Type Date Status Note Provider Nam e and Address Organization Details Recorded Time Influenza, split virus, quadrivalent, preservative 6 completed Not Available [facility] 11/27/2019 02:33:24 Influenza, split virus, quadrivalent, preservative 8 completed Not Available [facility] 11/27/2019 02:43:37 HPV9 8 completed Not Available [facility] 11/27/2019 02:48:33 Influenza, split virus, quadrivalent, preservative 4 completed Adam Scales [facility] [place] [facility] 11/16/2014 16:05:58 Past Encounters Encounter ID Performer Location Encounter Start Date Encounter Closed Date Diagnosis/Indication Diagnosis SNOMED-CT Code Diagnosis ICD10 Code Diagnosis IMO Codes Diagnosis Note [id number] MD Karen Goins (INFORMATION TECHNOLOGY CONSULTANT) [facility] [place] [address] 11/16/2014 14:38:28 11/16/2014 16:54:44 Gynecologic examination [id number] [facility] surveillance [id number] JONA Rolon (Adult Med) [address] [place] [id number] 02/02/2015 15:25:48 02/02/2015 16:33:26 Anemia 823950552 Asthma 061683093 Menorrhagia [id number] Obese [id number] Pleurisy [id number] JONA Rolon (Adult Med) [address] [place] [id number] 12/22/2015 12:35:48 12/22/2015 13:13:43 Anemia 715850836 D64.9 Asthma 302971858 J45.90 9 Low back pain 915724849 M54.5 2 months ago , er , now just inner upper arm pain , radiating to wrist Anxiety 83430609 F41.9 dad, end stage renal disease . she and brother helping him , dialysis m-w f [id number] MD Karen Goins (INFORMATION TECHNOLOGY CONSULTANT) [address] [place] [id number] 01/09/2016 11:33:24 01/09/2016 13:25:19 Gynecologic examination 77419698 Z01.419 Irritable bowel syndrome 14766982 K58.9 Menorrhagia 216988640 N9 2.0 Polycystic ovaries 84165 008 E28.2 [id number] MD Karen Medina (Adult Med) [address] [place] [id number] 07/22/2016 12:02:03 07/23/2016 09:37:51 Anemia 937938263 D64.9 Anxiety 90259273 F41.9 dad, end stage renal disease . she and brother helping him , dialysis m-w f Asthma 935137010 J45.90 9 Irritable bowel syndrome 24858265 K58.9 Low back pain 679710075 M54.5 2 months ago , er , now just inner upper arm pain , radiating to wrist Obese 101058933 E66.9 Polycystic ovaries 78976 008 E28.2 Thyroid di sorder screening 387976949 Z13.29 Administra tion of influenza vaccine 52699932 Z23 [id number] Madhu Pereira MD [facility] (INFORMATION TECHNOLOGY CONSULTANT) [address] [place] [id number] 07/22/2016 14:25:30 07/23/2016 11:41:37 Generalized tenderness of breast 038901960 N64.4 Polycystic ovaries 06022 008 E28.2 2 month sample packs were given to patient to trial the Lo-loestri n Fe. Menorrhagia 924339080 N9 2.0 [id number] [facility]CHNOLOGY CONSULTANT) [address] [place] [id number] 01/08/2018 10:00:00 01/08/2018 11:41:18 Gynecologic examination 69970455 Z01.419 Family holden nning surveillance 320353238 Z30.09 Fibrocysti c disease of breast 32940171 N60.11 Exposure t o sexually transmissible disorder 311760603 Z20.2 [id number] Adam Scales MD [facility] (INFORMATION TECHNOLOGY CONSULTANT) [address] [place] [id number] 02/04/2018 14:42:01 02/04/2018 17:03:21 HPV - Human papillomavirus test positive 397091153 R87.619 Lesion of vulva 44627297 6 N90.9 Exposure t o sexually transmissible disorder 252385328 Z20.2 Z11.3 Family [facility] nning surveillance 207818030 Z30.09 [id number] Adam Scales MD [facility] (INFORMATION TECHNOLOGY CONSULTANT) [address] [place] [id number] 09/30/2018 16:30:12 09/30/2018 18:04:29 Exposure to sexually transmissible disorder 103082638 Z20.2 Administra tion of influenza vaccine 25408355 Z23 Family holden nning surveillance 477980734 Z30.09 Menorrhagia 265227228 N9 2.0 Plan:#1 try control pills, NSAIDS and US#2 Minor surgical hysterosco py D&C, possible ablation#3 Hysterecto my Family his tory of breast cancer 522541951 Z80.3 Active or passive immunization 066697351 Z23 Fibrocysti c disease of breast 17262576 N60.11 [id number] MD Kira Danielle [address] [facility] [address] [place] [address] 07/09/2021 10:23:19 07/10/2021 12:11:09 Iron deficiency anemia 49504955 D50.9 Chronic, uncontroll edHistory of anemia. Reporting menorrhagi a, fatigue, lightheade dness, restless legs. Symptoms indicate anemia still present. Anemia likely secondary to menorrhagi a if present. Thyroid disease may be contributi ng as well.- Check labs- Likely will need to restart iron supplement ation- Follow up on labs in 1 week Dyspnea [id number] R06.00 Chronic, worseningD yspnea with and without exertion for ~ 10 years. No clear etiology. Differenti als include anemia, cardiomyop athy, asthma, GERD. Physical exam was unremarkab le. Unlikely infectious process.- CXR to evaluate acute causes- Consider cardiology vs pulmonolog y referral based on CXR and labs- Echocardio gram ordered due to presence of palpitatio ns as well. Intermitte nt palpitations [id number] R00.2 ChronicDes cription of palpitatio ns sounds like PVCs. Asymptomat ic today. Palpitatio ns may be related to anemia, thyroid disorder, metabolic abnormalit ies.- Check labs- Echocardio gram to evaluate structural and valvular abnormalit ies- Consider cardiology referral- Follow up in 1 week with lab results Weight gain [id number] R63. 5 Luockas90j b weight gain over the last 5 years. Thyroid disorder suspected due to associated thinning of hair, fatigue, menorrhagi a, and family history of thyroid disorder. Thyroid testing in 08/2016 negative.- Obtain TSH- Check lipid panel- Needs hemoglobin A1c. Previously 5.7% in 08/2016. I suspect it is elevated now considerin g weight gain. Menorrhagia [id number] N9 2.0 ChronicCur rently seeing INFORMATION TECHNOLOGY CONSULTANT for management . I will defer therapy decicision s to them at this time.- Medical records requested [id number] MD Kira Forrest 47 3 [facility] [address] [place] [address] 07/17/2021 10:23:49 07/19/2021 15:22:33 Body mass index 30+ - obesity [id number] Z68.34 Iron defic iency anemia 24302456 D50.9 Chronic, uncontroll edHistory of anemia. Reporting menorrhagi a, fatigue, lightheade dness, restless legs. Symptoms indicate anemia still present. Anemia likely secondary to menorrhagi a- Labs consistent with severe ROMINA- Will restart slow-relea se PO iron supplement ation as well as iron infusions x2 (ordered placed)- Follow up on labs in 6 weeks for repeat CBC Diabetes m ellitus screening [id number] Z13.1 HbA1C 5.3% Menorrhagia [id number] N9 2.0 ChronicCur rently seeing INFORMATION TECHNOLOGY CONSULTANT for management . I will defer therapy decisions to them at this time. Patient would likely benefit from partial hysterecto my- Medical records requested [id number] [facility] [address] [address] 09/13/2021 09:15:01 09/14/2021 09:07:09 Obesity [id number] E66.9 ChronicAdh ering to good lifestyle behaviors. Unsuccessf ul diets in the past. History of PCOS may be contributi ng. Failed Metformin. - Start Victoza daily- Continue diet and exercise- Follow up in 6-8 weeks Iron defic iency anemia 59096927 D50.9 Chronic, improvingA nemia likely secondary to menorrhagi a if present. Asymptomat ic today. Thyroid disease less likely with normal TSH (06/2021)- Continue iron supplement . Recommende d every other day dosing- Continue to follow with INFORMATION TECHNOLOGY CONSULTANT regarding menorrhagi a- Call clinic if you develop symptoms Telogen effluvium [id number] L65.0 SubacuteHa ir loss suspected to be secondary to life stressors. 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 Previously had cysts removed by a dermatolog ist. [id number] Manish Ma MD [facility] [address] [facility] [address] [place] [address] 11/20/2021 08:55:46 11/21/2021 07:30:34 Right flank pain [id number] R10.9 AcuteRight flank pain radiating to groin with point tenderness to palpation. Initial UA with microscopi c hematuria. BMP without evidence of kidney dysfunctio n. Repeat urinalysis without hematuria. Differenti als include low back muscle spasms vs somatic dysfunctio n, nephrolith iasis, cystitis, hernia, pathology of the adenexa, menses complicati ons. Less likely pyelonephr itis or ectopic . - Urine studies ordered to evaluate infectious etiology- KUB to evaluate for nephrolith iasis- Advised to begin home exercise regiment for low back with daily stretches and strengthen ing exercises 3x/week.- NSAIDs PRN for pain control- Consider formal PT if conservati ve measures not successful - RTC in 8 weeks to evaluate symptoms or sooner if concerns arise Intermitte nt palpitations [id number] R00.2 ChronicDes cription of palpitatio ns sounds like PVCs. Asymptomat ic today. EKG reveals normal sinus rhythm. Palpitatio ns may be related to anxiety, arrhythmia , anemia.- Echocardio gram ordered to evaluate structural and valvular abnormalit ies- Cardiology referral ordered per request of cardiology office- Follow up as needed if concerns arise. [id number] nAnia walden MD [facility] [address] [facility] [address] [place] [address] 06/24/2022 16:39:53 06/26/2022 16:18:15 Chronic low back pain [id number] M54.50 : Unresolved . Stable.: Right lower back pain. Initial w/u w/ UA with microscopi c hematuria. BMP without evidence of kidney dysfunctio n & negative KUB.: Judging from worse upon waking up and certain positions with some improvemen t with performing previous exercise regiments provided previously likely muscular in origin particular ly since it is reproducib le with palpation in the right iliiocosta lis region.: Differenti als include low back muscle spasms vs somatic dysfunctio n- Advised to restart home exercise regiment for low back with daily stretches and strengthen ing exercises 3x/week.- NSAIDs PRN for pain control- Refer to formal PT Fatigue 10773285 R53.83 : Chronic. Stable.: TSH collected at most recent cardiology appointmen t wnl (TSH = 2.85): Ddx - Fatigue 2/2 to COVID vs 2/2 to COVID compounded w/ chronic anemic state vs Chronic fatigue syndrome vs LUCÍA vs fibromyalg ia: Considerin g the timing of symptoms as well as patients viewpoint, appears to be Post COVID symptoms that may be exacerbate d by chronic anemia- Advised patient to increase physical activity during midday fatigue and avoid naps- Suggested to follow up in 2-3mths after follow up with gynecologi st for upcoming hysterecto my to reassess symptoms. Health Concerns Section Related Observation LastModified by Organization Detai ls LastModified Time None Recorded Concern Status LastModified by Organization Details LastModified Time None Recorded Advance Directives Directive N: Payers Insurance Date Sequence Insurance Name Policy Number Policy Dunne Covered Member ID Dunne Member ID Guarantor Name 09/28/2022 1 [facility] (MEDICAID HM) [id number] Robert Mace [id number] Melonie Colmenares 06/12/2021 1 [facility] (MEDICAID HMO) [id number] Melonie Colmenares [id number] Melonie Colmenares Notes Date Note Type Note Provider Name and Address Organization Details Recorded Time 07/09/2021 text/html Robert is a 35 year-old female who [facility]. She is concerned about her iron deficiency anemia and difficulty taking deep breaths. 1) She was diagnosed with iron deficiency anemia at age 15. Reports history of a blood transfusion at 15. She was started on iron pills and took them periodically. Reports associated nausea and vomiting. She had an iron transfusion in 2018. Was admitted to ED on September 2020 for kidney infection, was found to have Hb 7.6. Endorses associated fatigue, diaphoresis not related to exertion, heart palpitations, hair thinning, lightheadedness, and weight gain. Denies any constipation, heat/cold intolerance, or muscle pain. 2) She has a history of being short of breath for at least 10 years. She was prescribed inhalers in 2018 and used them but doesn't remember if they helped. Current dyspnea has been present for 5 months and progressively worsening. She complains of difficulty taking a deep breath at rest, and it is worsened when lying down or with exertion. Taking in a deep breath is associated with chest pain, cough, and wheezing. Sleeps with 2 pillows at night. No paroxysmal nocturnal dyspnea. 3) Legs and sometimes arms are restless at night. Started 2 months ago and occasionally in arms. Endorses a sensation that she has to move legs and arms. Moving limbs helps and sleeping on side helps. MEDICAL HISTORY:- PMH: Iron deficiency anemia, anxiety and depression (after losing dad). Sees a psychiatrist at [facility]- Medications: Valium 10mg QD as needed, and Prozac 40mg, Multivitamins- LMP: Early May. Has hx of irregular periods. No spotting between periods. Ever since last in 2008, she has been having menorrhagia. Requires tampons and pads to control bleeding. Will get hysterectomy soon due to menorrhagia and enlarged uterus.- : , all vaginal and term. No gestational diabetes or pre-eclampsia- OCP: Tubal ligation in 2008 Medication Allergies:- Bactrim: urticaria- Hydrocodone: vomiting, dizzy SCREENINGS:- Last pap smear was January or February,. No history of abnormal paps- Does not remember when last tetanus was but thinks it is within last 10 years- Still contemplating getting COVID vaccine SURGICAL HISTORY:- Tubal ligation in 2008 FAMILY MEDICAL HISTORY:- Father -- T2DM, kidney failure, dementia, HLD, heart disease- Mother -- Hypothyroidism- Maternal Grandmother -- Hodgkins Lymphoma, Lung Cancer SOCIAL:Relationship: Lives at home with and 3 kidsWork: Cleaning company. Strenuous jobTobacco: 1/2 pack a day off and on for 10 years. Quit 12 years agoETOH: Social alcohol useIllicit: Occasional marijuana at night to help with sleepSexuality: Currently sexually active with only. Annia Juarez MD Attn: Accounting,[address] [facility], [place], [address], [place] [facility] 07/09/2021 22:34:16 07/17/2021 text/html ROS as noted in the HPI 35 yo female presents for anemia follow-up and to discuss lab results. She is concerned about her iron deficiency anemia. She was diagnosed with iron deficiency anemia at age 15. Reports history of a blood and iron transfusions several times. She was started on iron pills and took them periodically but states they cause nausea and vomiting. Reports a history menorrhagia for which she is considering a partial hysterectomy. Reports persistent fatigue, diaphoresis not related to exertion, heart palpitations, hair thinning, lightheadedness, and weight gain. Denies any constipation, heat/cold intolerance, or muscle pain. KAREL SANDRA MD Attn: Accounting,[address] [facility], [place], [address], [facility] 07/19/2021 10:30:34 09/13/2021 text/html 35yo F presents to clinic to follow up on iron deficiency.- Reports being diagnosed with COVID within the recent past. Symptoms improving. Intermittent cough remains.- Continues to have intermittent cardiac palpitations which are only a few seconds in duration.- Has not had the echocardiogram performed yet.- Continues to see INFORMATION TECHNOLOGY CONSULTANT for heavy menses. Menses are not quite as frequent. Monthly menses for 7 days with heaviest bleeding during the first 3 days. Uses the highest absorbancy tampon and 2 layer pads, and has to change every 2-3 hours during the 3 days.- Endorses hair does not feel as thick as usual. Reports losing hair all the time. Reports noticing nodules on the scalp more. Nodules have been present for several years.- Denies lightheadedness, dizziness, abdominal pain, diarrhea, constipation Slime Wilson DO Attn: Accounting,[address] [facility], [place], [address], [facility] 09/14/2021 12:02:25 11/20/2021 text/html 35yo F presents to clinic for follow up on right flank pain and labs. Pt reports a sharp pain in her lower to mid back that radiates 2 inches above her pelvic bone and goes laterally to her side. It has been going on for the past 3 months. Pain is described as dull in the back and sharp in the right side and describe the side pain as burning. Pain has not changed locations. Pain is not associated N/V, skin rash, dysuria, gross hematuria. Pt states no specific position brings about or triggers her pain. Pt does not have a with history of nephrolithiasis/hype rcalcemia. Pt also reported a constant heart palpitation that started in October of 2020. She started seeing a physician around Oct 2020, however she reported issues with this clinic, and searched for a new PCP. Symptoms of palpitations were reported to be intermittent til October 2021. About two weeks leading up to Tully, her palpitations got much worse, she reported they were more frequent, and after Tully she stated that these palpitations returned to intermittent. Now she reports her palpitations are daily, intermittent. She describes her symptoms like her heart skipped a beat and fluttered. Manish Ma MD Attn: Accounting[address] [facility], [place], [address], [facility] 11/26/2021 16:24:48 06/24/2022 text/html ROS as noted in the HPI 36yo F presents to clinic for follow up on right flank pain. (1) lower left back painPt reports pain is worse than previous visits and usually the worst when waking up first thing. Ongoing for the past year its a sharp pain in her lower to mid back that radiates 2 inches above her pelvic bone. It has been going on for the past 3 months. Denies any associate with N/V, skin rash, dysuria, gross hematuria. Pt states waking up in bed is when pain is worse and particular positions increase the severity of pain but it is largely constant. Pt does not have a with history of nephrolithiasis/hype rcalcemia. (2) Fatigue/anemiaReport s a ~1 year history of fatigue with requiring to take naps by mid-day and have decreased energy despite having full night of sleep. Noticed symptoms after getting covid in 07/2021. Notes long history of anemia with recent visit with gynecology to have hysterectomy due to menorrhagia. Denies any symptoms of depression, decrease mood, or significant life changes recently. Denies CP, dyspnea, fevers, chills, myalgias, abdominal pain, n/v/d, constipation, hematuria, melena, numbness/tingling. Annia Juarez MD Attn: Accounting,[address] [facility], [place], [address], [facility] 06/28/2022 09:00:27 OBGyn Episode Ob Episode Information Episode Created Date Number of Fetuses Patient Bloodtype Patient rh Status Prepregnancy Weight lbs Domestic Partner Domestic Partner Phone Father Name Direct Response Consultant Status 07/22/20 16 1 CLOSED Fetus Data First Name Last Name Admitted to NICU Weight (g) Sex Living Outcome Pediatric Complications Fetus ID Race Codes Race Delivery Type 3090.09 55 M Full Term 50000 Vaginal Salvador Calculation Initial Salvador Date Initial Exam Date Initial Exam Provider Initial Ultrasound Date Last Menstrual Period Date Ultra Sound Weeks Gestation 0 Eighteen To Twenty Week Salvador Update Ultra Sound Date Fundal Height At Umbil Quickening Date Ultra Sound Latest Weeks Gestation Final Salvador Confirmed By Final Salvador Confirmed Date Final Salvador Date Ultra Sound Latest Days Gestation 0 0 Menstrual History Last Menstrual Date Menses Monthly On Bcp Conception Prior Menses Frequency Hcg Plus Date Menarche Onset Age Delivery Information Delivery Date Delivery Type Labor Anesthesia Weeks Gestation Incision Type Labor Labor Length Hrs Delivered By Post Complications Tubal Sterilization Discharge Date Comments 5 [facility] idural 40 false Discharge Information Feeding Method Contraceptive Method Maternal HG B and HCT Levels Ob Episode Information Episode Created Date Number of Fetuses Patient Bloodtype Patient rh Status Prepregnancy Weight lbs Domestic Partner Domestic Partner Phone Father Name Direct Response Consultant Status 07/22/20 16 1 CLOSED Fetus Data First Name Last Name Admitted to NICU Weight (g) Sex Living Outcome Pediatric Complications Fetus ID Race Codes Race Delivery Type 2693.20 25 F Full Term [id number] Vaginal Salvador Calculation Initial Salvador Date Initial Exam Date Initial Exam Provider Initial Ultrasound Date Last Menstrual Period Date Ultra Sound Weeks Gestation 0 Eighteen To Twenty Week Salvador Update Ultra Sound Date Fundal Height At Umbil Quickening Date Ultra Sound Latest Weeks Gestation Final Salvador Confirmed By Final Salvador Confirmed Date Final Salvador Date Ultra Sound Latest Days Gestation 0 0 Menstrual History Last Menstrual Date Menses Monthly On Bcp Conception Prior Menses Frequency Hcg Plus Date Menarche Onset Age Delivery Information Delivery Date Delivery Type Labor Anesthesia Weeks Gestation Incision Type Labor Labor Length Hrs Delivered By Post Complications Tubal Sterilization Discharge Date Comments 3 [facility] idural 40 false Discharge Information Feeding Method Contraceptive Method Maternal HG B and HCT Levels Ob Episode Information Episode Created Date Number of Fetuses Patient Bloodtype Patient rh Status Prepregnancy Weight lbs Domestic Partner Domestic Partner Phone Father Name Direct Response Consultant Status 07/22/20 16 1 CLOSED Fetus Data First Name Last Name Admitted to NICU Weight (g) Sex Living Outcome Pediatric Complications Fetus ID Race Codes Race Delivery Type 2919.99 85 F Full Term [address]42 Vaginal Salvador Calculation Initial Salvador Date Initial Exam Date Initial Exam Provider Initial Ultrasound Date Last Menstrual Period Date Ultra Sound Weeks Gestation 0 Eighteen To Twenty Week Salvador Update Ultra Sound Date Fundal Height At Umbil Quickening Date Ultra Sound Latest Weeks Gestation Final Salvador Confirmed By Final Salvador Confirmed Date Final Salvador Date Ultra Sound Latest Days Gestation 0 0 Menstrual History Last Menstrual Date Menses Monthly On Bcp Conception Prior Menses Frequency Hcg Plus Date Menarche Onset Age Delivery Information Delivery Date Delivery Type Labor Anesthesia Weeks Gestation Incision Type Labor Labor Length Hrs Delivered By Post Complications Tubal Sterilization Discharge Date Comments 9 [facility] idural 40 false Discharge Information Feeding Method Contraceptive Method Maternal HG B and HCT Levels
--- OUTSIDE RECORDS SUMMARY | 2025-09-16 17:22 | XMS_ITS | Encounter Summary ---
Author Organization [facility] Address [address] [place] [address] Care Team Providers Care Anesthesiology Tech Name Role Phone Jono Sage DO Primary Care Provider [phone] Encounter Details Date Type Department Care Team (Late st Contact Info) Description 11/26/2021 [facility] [address] Steve Bryant MA Social History Tobacco Use Types Packs/Day Years Used Date Smoking Tobacco: Never Smokeless Tobacco: Never Alcohol Use Standard Drinks/Week Comments No 0 (1 standard drink = 0.6 oz pur e alcohol) Comments No Sex and Gender Information Value Date Recorded Sex Assigned at Not on file Legal Sex Female 5:45 PM CDT Gender Identity Not on file Sexual Orientation Not on file COVID-19 Exposure Response Date Recorded In the last month, have you been in contact with someone who was confirmed or suspected to have Coronavirus / COVID-19? 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 AMER. 120(A) <=90 EGFR NON-AFR. AMER. 104(A) <=90 11/06/2021 us Doc [facility] Abstract LABORATORY Final Result documented in this encounter Visit Diagnoses Not on filedocumented in this encounter Care Teams Anesthesiology Tech Relationship Specialty Start Date End Date Jono Sage DO [address] [address] PCP - General FAMILY PRACTICE 07/12/21 documented as of this encounter
--- OUTSIDE RECORDS SUMMARY | 2025-09-16 17:22 | XMS_ITS | Clinical Summary ---
Author Organization [facility] Address [address] [place] [address] Care Team Providers Care Spooler Operator Automatic Name Role Phone Jono Sage DO Primary Care Provider [phone] Allergies Active Allergy Reactions Criticality Noted Date Comments Sulfamethoxazole-Trimethoprim Hives 2019 Hydrocodone Hives 12/01/2017 Sulfa Antibiotics Unknown 12/01/2017 Medications buPROPion 24 hr 300 MG 24 hr tablet Take 300 mg by mouth daily. 11/21/2017 Active lorazepam 0.5 MG tablet Take 0.5 mg by mouth 2 (two) times daily as needed for Anxiety. 11/21/2017 Active tiZANidine HCl 4 MG Cap Take 1 tablet by mouth 3 (three) times daily as needed (pain). 12 capsule 10/30/2020 Active albuterol sulfate HFA 108 (90 Base) MCG/ACT inhaler Inhale 2 puffs into the lungs every 6 (six) hours as needed for Wheezing. 18 g 08/12/2021 Active Active Problems Problem Noted Date Diagnosed Date Iron deficiency anemia, unspecified 07/26/2021 Palpitations 11/09/2020 Social History Tobacco Use Types Packs/Day Years Used Date Smoking Tobacco: Never Smokeless Tobacco: Never Alcohol Use Standard Drinks/Week Comments No 0 (1 standard drink = 0.6 oz pur e alcohol) Comments No Sex and Gender Information Value Date Recorded Sex Assigned at Not on file Legal Sex Female 5:45 PM CDT Gender Identity Not on file Sexual Orientation Not on file Last Filed Vital Signs Vital Sign Reading Time Taken Comments Blood Pressure 145/74 08/12/2021 6:40 PM CDT Pulse 96 08/12/2021 6:40 PM CDT Temperature 37.2 C (98.9 F) 08/12/2021 3:53 PM CDT Respiratory Rate 18 08/12/2021 6:40 PM CDT Oxygen Saturation 100% 08/12/2021 6:40 PM CDT Inhaled Oxygen Concentration - - Weight 98 kg (216 lb) 08/12/2021 3:53 PM CDT Height 165.1 cm (5' 5) 08/12/2021 3:53 PM CDT Body Mass Index 35.94 08/12/2021 3:53 PM CDT Plan of Treatment Health Maintenance Due Date Last Done Comments Cervical Cancer Screening Pa p Smear (Age 30 to 64) Every 3 Years 1983 Annual Physical 1986 Hepatitis C 2001 DTaP, Tdap and Td Vaccines ( 1 - Tdap) 2002 Hepatitis B Vaccines (1 of 3 - 19+ 3-dose series) 2002 Cervical Cancer Screening Pa p with HPV Testing (Age 30 to 64) Every 5 Years 2013 Cervical Cancer Screening [facility] HPV 2013 HPV Vaccines (2 - 3-dose SCD M series) 10/28/2018 09/30/2018 Mammogram Screening 2023 COVID-19 Vaccine ( - 2024-2 6 season) 2025 Influenza Adult (#1) 2025 09/30/2018, 07/22/2016, 08/24/2014 Hepatitis A Vaccines Aged Out No long er eligible based on patient's age to complete this topic Meningococcal B Vaccine Aged Out No l onger eligible based on patient's age to complete this topic Meningococcal Vaccine Aged Out No luis fernando jesús eligible based on patient's age to complete this topic Pneumococcal Vaccine: Pediatrics (0 to 5 Years) and At-Risk Patients (6 to 49 Years) Aged Out No longer eligible b ased on patient's age to complete this topic RSV Immunizations Under 20 Months Aged Out No longer eligible b ased on patient's age to complete this topic Insurance [employer] Care Teams Spooler Operator Automatic Relationship Specialty Start Date End Date Jono Sage DO [address] [address] PCP - General FAMILY PRACTICE 07/12/21
--- OUTSIDE RECORDS SUMMARY | 2025-09-16 17:22 | XMS_ITS | Clinical Summary ---
Author Organization [facility] Address [address] [place] [address] Phone Care Team Providers Care Clinical Psychiatrist Name Role Phone Janey French APRN, HANDBAG DESIGNER Primary Care P rovider Allergies Active Allergy Reactions Criticality Noted Date Comments Sulfa Antibiotics Unknown 05/19/2018 Medications diazePAM (VALIUM) 5 MG Tablet Take 5 mg by mouth every 12 hours as needed. Active ALBUTEROL IN take by inhalation. Active Budesonide-Formo terol Fumarate (SYMBICORT IN) take by inhalation. Active NAPROXEN PO Take by mouth. Active Active Problems Problem Noted Date Diagnosed Date Enlarged lymph nodes 11/04/2018 Iron deficiency anemia secondary to blood loss ( chronic) 05/19/2018 Menorrhagia 05/19/2018 Family History Medical History Relation Name Comments Diabetes Father Heart Disease Father Hypertension Father Stroke Father Leukemia/Lymphoma Maternal Grandmother Lung Cancer Maternal Grandmother Lung Cancer Maternal Uncle 1 Cancer Maternal Uncle 2 brain cance r Diabetes Paternal Grandfather Diabetes Paternal Grandmother Relation Name Status Comments Father Maternal Grandmother Maternal Uncle 1 Maternal Uncle 2 Paternal Grandfather Paternal Grandmother Social History Tobacco Use Types Packs/Day Years Used Date Smoking Tobacco: Former Cigarettes 0.5 6 Smokeless Tobacco: Never Alcohol Use Standard Drinks/Week Comments Yes 0 (1 standard drink = 0.6 oz pur e alcohol) Comments No Sex and Gender Information Value Date Recorded Sex Assigned at Not on file Legal Sex Female 3:33 PM CDT Gender Identity Not on file Sexual Orientation Not on file Last Filed Vital Signs Vital Sign Reading Time Taken Comments Blood Pressure 121/82 10/30/2018 2:40 PM SENIOR SOFTWARE TEST ENGINEER Pulse 105 10/22/2018 1:35 PM SENIOR SOFTWARE TEST ENGINEER Temperature 36.3 C (97.3 F) 10/22/2018 1:35 PM SENIOR SOFTWARE TEST ENGINEER Respiratory Rate 18 10/22/2018 1:35 PM SENIOR SOFTWARE TEST ENGINEER Oxygen Saturation 98% 10/22/2018 1:35 PM SENIOR SOFTWARE TEST ENGINEER Inhaled Oxygen Concentration - - Weight 94.8 kg (209 lb) 10/22/2018 1:35 PM SENIOR SOFTWARE TEST ENGINEER Height 165.1 cm (5' 5) 10/22/2018 1:35 PM SENIOR SOFTWARE TEST ENGINEER Body Mass Index 34.78 10/22/2018 1:35 PM SENIOR SOFTWARE TEST ENGINEER Plan of Treatment Health Maintenance Due Date Last Done Comments Hepatitis C Virus (HCV) Screening 1983 TdaP Immunization 1983 Hepatitis B Immunization (1 of 3 - 19+ 3-dose series) 2002 Pap Smear 2004 Human Papillomavirus (HPV) Immunization (1 - 3-dose SCDM series) 2010 Cervical Cancer Screening (CCS) 2013 HPV/Cotest 2013 Influenza Immunization (#1) 07/11/202509/11, 07/22/2016, 08/24/2014 SARS-COV-2 Immunization (2024- season) 2025 Respiratory Syncytial Virus (RSV) Immunization (Adult) (1 - 1-dose 75+ series) 2058 Meningococcal Immunization (ACWY) Aged Out No longer eligible b ased on patient's age to complete this topic Pneumococcal Immunization Combined Aged Out No longer eligible b ased on patient's age to complete this topic Rotavirus Immunization Aged Out No lo nger eligible based on patient's age to complete this topic Insurance MEDICAID [place] Care Teams Clinical Psychiatrist Relationship Specialty Start Date End Date Janey French, HEIKE, HANDBAG DESIGNER [address] [place] [address] [place] [address] PCP - General Advanced Practice Nurse 05/19/18
--- OUTSIDE RECORDS SUMMARY | 2025-09-16 17:22 | XMS_ITS | Clinical Summary ---
Author Organization [facility] Address [address] [place] [id number] Care Team Providers Care Door Repairer Bus Name Role Phone Jono Sage DO Primary Care Provider [phone] Allergies Active Allergy Reactions Criticality Noted Date Comments Cephalexin Rash,Fever Medium Hydrocodone Fever,Hives,Nausea A nd Vomiting,Vomiting Medium 09/09/2017 Hydrocodone-Acetaminophen Dizziness,Vomiting Low Sulfa (Sulfonamide Antibiotics) Rash Medium 03/04/2022 Sulfamethoxazole-Trimethopri m Rash,Fever Medium Medications Victoza 2-Yo 0.6 mg/0.1 mL (18 mg/3 mL) injection INJECT 0.6 MG IN THE SUBCUTANEOUS TISSUE OF THE BELLY EACH DAY FOR 1 WEEK AND THEN INCREASE TO 1.2 MG DAILY THEREAFTER 2 Active magnesium oxide (MAG-OX) 400 mg (241.3 mg elemental magnesium) tabletIndicatio ns:hypomagnesem ia Take 1 tablet (400 mg total) by mouth daily 30 tablet 11 2 Active albuterol HFA (PROVENTIL HFA,VENTOLIN HFA,PROAIR HFA) 90 mcg/actuation inhalerIndicati ons:Acute Asthma Attack Inhale 2 puffs every 6 (six) hours as needed for wheezing 1 each 3 Active Active Problems Problem Noted Date Diagnosed Date Atypical chest pain 02/24/2012 Social History Tobacco Use Types Packs/Day Years Used Date Smoking Tobacco: Former Personal Safety Answer Date Recorded Getting School Help Needed Not on file 12/30 Comments Unknown Sex and Gender Information Value Date Recorded Sex Assigned at Not on file Legal Sex Female 8:11 AM 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 Gender Identity Not on file Sexual Orientation Not on file Last Filed Vital Signs Vital Sign Reading Time Taken Comments Blood Pressure 122/82 03/04/2022 2:44 PM CDT Pulse 90 03/04/2022 2:44 PM CDT Temperature 36.8 C (98.3 F) 03/04/2022 2:44 PM CDT Respiratory Rate - - Oxygen Saturation 100% 03/04/2022 2:44 PM CDT Inhaled Oxygen Concentration - - Weight 95.8 kg (211 lb 4.8 oz) 03/04/2022 2:44 P M CDT Height 166 cm (5' 5.35) 03/04/2022 2:44 PM CDT Body Mass Index 34.78 03/04/2022 2:44 PM CDT Plan of Treatment Health Maintenance Due Date Last Done Comments Breast Cancer Screening-Mammogram 1983 Cervical Cancer Screening 1983 Depression Screening 1983 Hepatitis C Screening 1983 DTaP/Tdap/Td Vaccine (1 - Tdap) 1994 Varicella Vaccines (1 of 2 - 13+ 2-dose series) 1996 Hepatitis B Screening 2001 Regular Well Visit/Exam 18-64 2001 HPV Vaccines (2 - 3-dose SCD M series) 10/28/2018 09/30/2018 Influenza Vaccine (#1) 2025 8, 07/22/2016, 08/24/2014 Pneumococcal vaccine <65 Aged Out No longer eligible based on patient's age to complete this topic [place] [address] [facility] Care Teams Door Repairer Bus Relationship Specialty Start Date End Date Jono Sage DO [address] [address] PCP - General Family Medicine 01/18/22
--- OUTSIDE RECORDS SUMMARY | 2025-09-16 17:22 | XMS_ITS | Clinical Summary ---
Author Organization [facility] Address [address] [facility] [place] [address] Care Team Providers Care Lcac Operator Name Role Phone Faustino Estrada MD Primary Care Provider [phone] Source Comments [facility],non-owned Affiliates and Associated Physician Practices is amultiple site organization consisting of ambulatory clinics and hospital sitesin [place], [place], [place] and [place]. This disclosure is being madepursuant to the Care Everywhere program and may not contain all information available regarding this patient. Last updated 18.[facility] [place] Allergies Active Allergy Reactions Criticality Noted Date Comments Hydrocodone Nausea and/or Vomiting Low 09/09/2017 Sulfa Drugs Skin Reactions,Urticaria Medium 09/09/2017 Medications * Be aware that medications may not be up to date on this document. Alwaysverify current medications with the patient. LORazepam (ATIVAN) 0.5 MG tablet Take 0.5 mg by mouth q4h PRN (Anxiety). 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 Gender Identity Not on file Sexual Orientation Not on file Last Filed Vital Signs Vital Sign Reading Time Taken Comments Blood Pressure 122/72 01/23/2020 2:07 PM CDT Pulse 81 01/23/2020 2:07 PM CDT Temperature 36.7 C (98 F) 01/23/2020 2:07 PM CDT Respiratory Rate 16 01/23/2020 2:07 PM CDT Oxygen Saturation 99% 01/23/2020 2:07 PM CDT Inhaled Oxygen Concentration - - Weight 96.2 kg (212 lb) 01/23/2020 2:07 PM CDT Height 165.1 cm (5' 5) 01/23/2020 2:07 PM CDT Body Mass Index 35.28 01/23/2020 2:07 PM CDT Plan of Treatment Health Maintenance Due Date Last Done Comments LIPID TESTING 1983 MAMMOGRAM 1983 HIV SCREENING 1998 HEPATITIS C SCREENING 12/25/2001 DTAP/TDAP/TD VACCINES (1 - Tdap) 2002 HEPATITIS B VACCINE (1 of 3 - 19+ 3-dose series) 2002 PAP SMEAR 2004 HPV VACCINE (1 - 3-dose SCDM series) 2010 DEPRESSION SCREENING 11/10/2024 COVID-19 VACCINE (1 - 2023-2 5 season) 2025 INFLUENZA VACCINE (#1) 2025 8, 07/22/2016, 08/24/2014 ZOSTER VACCINE (1 of 2) 2033 HIB VACCINE Aged Out No longer eligi ble based on patient's age to complete this topic MENINGOCOCCAL (Group B) VACCINE SHARED DECISION-MAKING Aged Out No longer eligible based on patient's age to complete this topic MENINGOCOCCAL GROUPS A/C/Y/W VACCINE Aged Out No longer eligible b ased on patient's age to complete this topic PNEUMOCOCCAL VACCINE Aged Out No long er eligible based on patient's age to complete this topic Insurance [place] [address] [facility] * Guarantor: AGUSTINCHRISTYROBERT CLOUD Account Type Relation to Patient Date of Phone Billing Address Personal/Family [address] [place] [address] [place] [address] [facility] SELF PAY NO INSURANCE Member Subscriber Plan / Payer (Ef fective for All Dates) Name:Robert Mace Member ID:Not on file Relation to Subscriber:Not on file Name:ROBERT MACE Subscriber ID:Not on file Address: [address] [place] [address] [place] [address] Payer ID:Not on file Group ID:Not on file Type:Self Pay Address: [place], [place] * Guarantor: ESMEROBERT CLOUD Account Type Relation to Patient Date of Phone Billing Address Personal/Family [address] [place] [address] [facility] SELF PAY NO INSURANCE Member Subscriber Plan / Payer (Ef fective for All Dates) Name:Robert Mace Member ID:Not on file Relation to Subscriber:Not on file Name:ROBERT MACE Subscriber ID:Not on file Address: [address] [place] [address] [place] [address] Payer ID:Not on file Group ID:Not on file Type:Self Pay Address: [place], [place] * Guarantor: AGUSTINROBERT DELACRUZ Account Type Relation to Patient Date of Phone Billing Address Personal/Family [address] [place] [address] [facility] SELF PAY NO INSURANCE Member Subscriber Plan / Payer (Ef fective for All Dates) Name:Robert Mace Member ID:Not on file Relation to Subscriber:Not on file Name:ROBERT MACE Subscriber ID:Not on file Address: [address] [place] [address] [place] [address] Payer ID:Not on file Group ID:Not on file Type:Self Pay Address: [place], [place] Care Teams Lcac Operator Relationship Specialty Start Date End Date Faustino Estrada MD [facility] [place] [address] PCP - General 10/13/18
[2025-09-16 17:23] VITALS: BP 140/88; PULSE 102; RESP 16; TEMP 36.4; O2SAT 100
[2025-09-16 22:12] VITALS: BP 137/78; PULSE 95; RESP 18; O2SAT 100
[2025-09-16 22:33] VITALS: BP 128/87; PULSE 93; RESP 14; O2SAT 100
--- NOTE | 2025-09-17 00:43 | PC.NURSE ---
no bedside test done. pt has hx of hysterectomy
[2025-09-17 00:45] LABS: Hematocrit 39.5 % (37.0-47.0); Hemoglobin 13.0 g/dL (12.0-15.0); Immature Granulocyte Percent A 0.3 % (0-0.5); Lymphocytes Absolute Auto 2.11 K/mm3 (0.9-3.2); Mean Corpuscular HGB Conc 32.9 g/dl (32-36); Mean Corpuscular Hemoglobin 30.7 pg (26-34); Mean Corpuscular Volume 93.2 fl (80-100); Nucleated Red Blood Cells Absolute Auto 0.000 K/mm3 (0.0-0.012); Nucleated Red Blood Cells Perc 0.0 % (0.0-0.2); Platelet Count Result 190 k/mm3 (150-375); Red Blood Count 4.24 M/mm3 (4.2-5.4); White Blood Count 6.4 K/mm3 (4.5-10.0)
[2025-09-17 00:47] LABS: Add Urine Microscopic? NO; Appearance Urine Clear (Clear); Glucose Urine UA Negative (Negative); Leukocyte Esterase Ur Negative LEU/UL (Negative); Nitrate Urine Negative (Negative); Specific Grav Ur 1.024 (1.001-1.035)
[2025-09-17 01:47] LABS: Alanine Aminotransferase 22 U/L (6-35); Albumin Level 4.4 g/dL (3.5-5.1); Alkaline Phosphatase 49 U/L (38-126); Anion Gap 6 mmol/L (4-12); Aspartate Amino Transferase 25 U/L (14-36); Bilirubin,Total 0.8 mg/dL (0.2-1.3); Blood Urea Nitrogen 14 mg/dL (7-17); Calcium 8.9 mg/dL (8.4-10.2); Carbon Dioxide 29 mmol/L (22-30); Chloride 99 mmol/L (98-107); Estimated CRCL calculation 107 ml/min; Estimated Glomerular Filt Rate > 60; Glucose 93 mg/dL (65-110); Potassium 3.7 mmol/L (3.4-5.0); Sodium 134 mmol/L (137-145); Total Protein 7.7 g/dL (6.3-8.2)
--- NOTE | 2025-09-17 03:02 | ED_ITS ---
HPI - General Adult General Chief complaint: Back Pain/Injury Stated complaint: BACK PAIN Time Seen by Provider: 09/16/25 22:40 History of Present Illness HPI narrative: 39-year-old female presenting with back pain. Patient states that her pain started about 1 week ago in her left lower back describing it as sharp and localized in the one spot. It then began to progress to her entire lower back. Then the last 3 days the pain has also began to radiate to her lower abdomen. Patient endorses that any kind of movement makes the pain worse and when she lays still the pain is much improved. Patient denies nausea/vomiting/diarrhea, fever/chills, chest pain/shortness breath, or dysuria. Related Data Home Medications ?Medication ?Instructions ?Recorded ?Confirmed ?Last Taken ?Type albuterol sulfate 90 mcg/actuation 2 puff inhalation Q 4HWA PRN 02/07/23 10/11/24 Unknown History aerosol inhaler Shortness Of Breath Allergies Allergy/AdvReac Type Severity Reaction Status Date / Time Sulfa (Sulfonamide Allergy Unknown Hives Verified 09/16/25 17:21 Antibiotics) hydrocodone AdvReac Unknown N/V/DIZZINE Verified 09/16/25 17:21 SS Review of Systems 2 Review of Systems: All systems reviewed & are unremarkable except as noted in HPI and below PMFSH Past Medical History Medical History Screening mammogram, encounter for Palpitations Obesity (BMI 35.0-39.9 without comorbidity) Iron deficiency anemia Breast pain HPV in female Anxiety Herpes PCOS (polycystic ovarian syndrome) Asthma Hypercholesteremia Surgical History Surgical History History of robot-assisted laparoscopic hysterectomy (03/11/24) Robotic assisted total laparoscopic hysterectomy with bilateral salpingectomy History of gynecological procedure (02/09/24) EMB Normal colonoscopy (~2015) Hx of tubal ligation (~2008) Family History Family History Father , At age 49 due to multiple complications of type 1 diabetes Hypertension Cerebrovascular accident Acute myocardial infarction Type 1 diabetes Multi-infarct dementia Chronic kidney disease Grandparent Heart disease maternal grandfather paternal grandfather Hodgkin lymphoma maternal grandmother Breast cancer maternal grandmother Mother Hypothyroidism Hypertension Daughter POTS (postural orthostatic tachycardia syndrome) Social History Social History Social History: The patient lives at home with her and 3 children. She used to smoke half a pack of cigarettes per day for between 8-10 years but quit smoking when her youngest child was warm. She rarely use his THC in order to try to help her sleep due to her restless leg symptoms associated with her anemia. She rarely drinks alcohol and only in small amounts. Code status: Full code Surrogate decision maker: Smoking packs per day: 0.5 Smoking cigarettes per day: 10.0 Years smoked: 12 Smoking pack-years: 6.00 Tobacco type: cigarettes Second hand tobacco smoke exposure: No Smoking end date: 11/10/12 Alcohol intake: current Drinks per week: 1 Alcohol use details: HOLIDAYS Substance use: current Substance use type: marijuana Other substance usage details: FOR SLEEP Last use: 07/11/2022 Do You Feel Safe in your Home?: Yes Lack of Transportation: No Lack of Food: Never True Current Housing: I Have Housing Concerned About Future Housing: No Difficulty Paying Gas/Electric Bills: No Difficulty Paying for Meds: No Currently Unemployed: No Education: Associate Degree Difficulty w/ Childcare or Family Care: No Living arrangements: with family Additional living arrangements comments: Occupation/Education: occupation 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 HEAD: Normocephalic, atraumatic. EYES: PERRLA and EOMI. ENT: Nares clear, no rhinorrhea or epistaxis. Mucous membranes moist. Oropharynx without tonsillar hypertrophy exudate or other lesions. Bilateral TMs pearly jamison non-bulging NECK: Supple. No adenopathy or masses. No carotid bruits or JVD CHEST: Clear to auscultation. No respiratory distress. No wheezes rales or rhonchi HEART: Regular rate and rhythm. No murmur heard. Normal peripheral pulses. ABDOMEN: Soft, lower left quadrant tenderness, nondistended, normal active bowel sounds. BACK: Lower back TTP. EXTREMITIES: Normal range of motion. No edema. SKIN: Warm, dry, no rash. NEURO: No focal deficits. Alert and oriented x3. PSYCH: Normal mood and affect Course Vital Signs Vital signs: Vital Signs Temperature 97.5 F L 09/16/25 17:23 Pulse Rate 102 H 09/16/25 17:23 Respiratory Rate 16 09/16/25 17:23 Blood Pressure 140/88 09/16/25 17:23 Pulse Oximetry 100 09/16/25 17:23 Temperature 97.5 F L 09/16/25 17:23 Pulse Rate 93 09/16/25 22:33 Respiratory Rate 14 09/16/25 22:33 Blood Pressure 128/87 09/16/25 22:33 Pulse Oximetry 100 09/16/25 22:33 Oxygen Delivery Room Air 09/16/25 22:33 Medical Decision Making MDM Narrative Medical decision making narrative: 39-year-old female presenting with back pain. Patient states that her pain started about 1 week ago in her left lower back describing it as sharp and localized in the one spot. It then began to progress to her entire lower back. Then the last 3 days the pain has also began to radiate to her lower abdomen. Patient endorses that any kind of movement makes the pain worse and when she lays still the pain is much improved. Patient denies nausea/vomiting/diarrhea, fever/chills, chest pain/shortness breath, or dysuria. Upon my initial assessment, patient is sitting comfortably and vitals are stable. Lab work is within normal limits. Patient does not want anything for pain or nausea. CT abdomen pelvis showed no acute findings. Patient?s pain is positional and localized to paraspinal muscles without signs of cord compression or cauda equina. Normal neurologic exams. No red flag symptoms. No fever noted and no significant risk factors for osteomyelitis or spinal epidural abscess. No symptoms or signs to suggest pain is referred from abdominal or source. Patient ambulates with a steady gait and is felt to be a reasonable candidate for continued outpatient management. Medical Records Medical records reviewed: Yes I reviewed the external patient's medical records. Vital Signs Vital Signs: Vital Signs Temperature 97.5 F L 09/16/25 17:23 Pulse Rate 102 H 09/16/25 17:23 Respiratory Rate 16 09/16/25 17:23 Blood Pressure 140/88 09/16/25 17:23 Pulse Oximetry 100 09/16/25 17:23 Temperature 97.5 F L 09/16/25 17:23 Pulse Rate 93 09/16/25 22:33 Respiratory Rate 14 09/16/25 22:33 Blood Pressure 128/87 09/16/25 22:33 Pulse Oximetry 100 09/16/25 22:33 Oxygen Delivery Room Air 09/16/25 22:33 Lab Data Lab results reviewed: Yes I reviewed the patient's lab results. 09/17/25 00:39 09/17/25 00:39 Labs: Lab Results 09/17/25 Range/Units 00:39 WBC 6.4 (4.5-10.0) K/mm3 RBC 4.24 (4.2-5.4) M/mm3 Hgb 13.0 (12.0-15.0) g/dL Hct 39.5 (37.0-47.0) % MCV 93.2 (80-100) fl MCH 30.7 (26-34) pg MCHC 32.9 (32-36) g/dl RDW 12.1 (11.5-14.5) % Plt Count 190 (150-375) k/mm3 MPV 10.5 H (7.4-10.4) fl Immature Gran % (Auto) 0.3 (0-0.5) % Neut % (Auto) 53.4 (45.5-73.1) % Lymph % (Auto) 33.0 (18.3-44.2) % Reeves % (Auto) 10.8 H (2.6-8.5) % Eos % (Auto) 1.7 (0-4.4) % Baso % (Auto) 0.8 (0.2-1.2) % Lymph # (Auto) 2.11 (0.9-3.2) K/mm3 Reeves # (Auto) 0.7 H (0.1-0.6) K/mm3 Eos # (Auto) 0.1 (0-0.3) K/mm3 Baso # (Auto) 0.1 (0.0-0.1) K/mm3 Abs Immat Gran (auto) 0.02 (0.00-0.031) K/mm3 Absolute Neuts (auto) 3.4 (1.3-6.7) K/mm3 Absolute Nucleated RBC 0.000 (0.0-0.012) K/mm3 Nucleated RBC % 0.0 (0.0-0.2) % Sodium 134 L (137-145) mmol/L Potassium 3.7 (3.4-5.0) mmol/L Chloride 99 (98-107) mmol/L Carbon Dioxide 29 (22-30) mmol/L Anion Gap 6 (4-12) mmol/L BUN 14 (7-17) mg/dL Creatinine 0.65 L (0.7-1.0) mg/dL Estim Creat Clear Calc 107 ml/min Estimated GFR > 60 (59 - ) Glucose 93 (65-110) mg/dL Calcium 8.9 (8.4-10.2) mg/dL Total Bilirubin 0.8 (0.2-1.3) mg/dL AST 25 (14-36) U/L ALT 22 (6-35) U/L Alkaline Phosphatase 49 (38-126) U/L Total Protein 7.7 (6.3-8.2) g/dL Albumin 4.4 (3.5-5.1) g/dL Urine Color Yellow (Yellow) Urine Appearance Clear (Clear) Urine pH 5.5 (5.0-9.0) Ur Specific [address] 1.024 (1.001-1.035) Urine Protein Negative (Negative) mg/dL Urine Glucose (UA) Negative (Negative) mg/dL Urine Ketones 2+ H (Negative) mg/dL Ur Blood (Man) Negative (Negative) Urine Nitrate Negative (Negative) Urine Bilirubin Negative (Negative) Urine Urobilinogen 0.2 (<2.0) mg/dL Leukocyte Esterase Rfl Negative (Negative) MIKEL/UL Imaging Data Attestation: I personally reviewed and interpreted this imaging study as follows: Radiologist's impression: CT abdomen pelvis showed no acute findings. Discharge Plan Discharge Clinical Impression: Back pain Patient Disposition: Home Condition: Stable Instructions: Acute Low Back Pain (ED) Additional Instructions: Return to the ER if you experience weakness, numbness, bowel/bladder incontinence or any other symptoms that are concerning to you Rest, use ice/heat, take anti-inflammatories (Aleve, Ibuprofen, Naproxen, etc) or Tylenol as needed for pain as well as muscle relaxer as needed for pain Follow up with your primary care doctor. Patient Language: Danish Prescriptions: New cyclobenzaprine 10 mg tablet 10 mg PO TID PRN (Reason: muscle spasm) Qty: 20 0RF No Action prednisone 20 mg tablet 40 mg PO DAILY 5 Days Qty: 10 0RF baclofen 10 mg tablet 10 mg PO BID Qty: 10 0RF tolterodine [Detrol LA] 4 mg capsule,extended release 24hr 4 mg PO DAILY Qty: 90 3RF albuterol sulfate 90 mcg/actuation HFA aerosol inhaler 2 puff INHALATION Q4HWA PRN (Reason: Shortness Of Breath) Follow-up/Referrals: Fei,Brandi Gooden NP [Primary Care Provider, Unknown]
[2025-09-17] MEDS: LIDOCAINE 5% PATCH 1 PATCH TRANSDERM (03:46)
== END 2025-09-17 03:57 | disposition home or self-care (01) ==
PROVIDERS: PCP Nurse Practitioner Family
DX: M54.50 Low back pain, unspecified (principal); E78.00 Pure hypercholesterolemia, unspecified; E66.9 Obesity, unspecified; E28.2 Polycystic ovarian syndrome; J45.909 Unspecified asthma, uncomplicated; D50.9 Iron deficiency anemia, unspecified; F41.9 Anxiety disorder, unspecified; Z87.891 Personal history of nicotine dependence; Z90.710 Acquired absence of both cervix and uterus; Z90.79 Acquired absence of other genital organ(s)
CPT/HCPCS: 36415; 74177; 80053; 81003; 85025; 99284; A9270; Q9967